=== PATIENT | female | born 1950 | race Caucasian/White ===

== ENCOUNTER 2021-04-04 23:04 | Inpatient (IN) | payer MEDICARE, OTHER ==
[~2021-04-04] VITALS: Ht 162.6 cm; Wt 85.7 kg
--- NOTE | 2021-04-04 23:30 | NUR ---
PT BIB [facility] FOR COUGH AND CONGESTION X2 DAYS. PT A/O X2, NO SOB OR LABORED BREATHING, AFEBRILE. DENIES CP/PRESSURE. CLEAR SPEECH, COMPLETE SENTENCES.
--- NOTE | 2021-04-04 23:31 | NUR ---
DR. SNOW AT BEDSIDE, MSE IN PROGRESS.
[2021-04-04 23:46] LABS: HEMATOCRIT 33.6 % (31.2-41.9); MEAN CORPUSCULAR HEMOGLOBIN 29.5 uug (24.7-32.8); MEAN CORPUSCULAR VOLUME 85.8 fL (75.5-95.3); PLATELET COUNT (AUTO) 211 K/uL (179-408)
[2021-04-04] MEDS ORDERED: SIMV-49 PO (23:53)
[2021-04-04] MEDS ORDERED: BENA40TA67 PO (23:53)
[2021-04-04 23:55] LABS: CARBON DIOXIDE 22 mmol/L (21-32); CHLORIDE 99 mmol/L (98-107); CREATININE 1.9 mg/dL (0.6-1.3); GLUCOSE 145 mg/dL (74-106); UREA NITROGEN, BLOOD 28 mg/dL (7-18)
[2021-04-05 00:07] LABS: ALANINE AMINOTRANSFERASE 32 U/L (14-59); ALKALINE PHOSPHATASE 85 U/L (50-136); ASPARTATE AMINOTRANSFERASE 55 U/L (15-37); BILIRUBIN,DIRECT 0.1 mg/dL (0.0-0.2); BILIRUBIN,TOTAL 0.3 mg/dL (0.2-1.0); TOTAL PROTEIN, SERUM 7.7 g/dL (6.4-8.2)
[2021-04-05] MEDS ORDERED: levoFLOXacin 750 MG/D5W 150 ML PIGGYBACK IV ONE (00:15)
[2021-04-05] MEDS ORDERED: ENOXAPARIN SODIUM 80 MG/0.8 ML DISP.SYRIN SQ ONE ×2 (00:15→01:28)
[2021-04-05] MEDS ORDERED: levoFLOXacin 750MG/D5W 150 ML IV ONE (01:29)
--- NOTE | 2021-04-05 02:04 | NUR ---
XRAY AT BEDSIDE.
--- NOTE | 2021-04-05 02:16 | NUR ---
CALLED [facility], DR. MARTINES PAGED.
[2021-04-05] MEDS ORDERED: ONDANSETRON 4 MG/2 ML VIAL IV PRN (03:00)
[2021-04-05] MEDS ORDERED: levoFLOXacin 500 MG/D5W 500 MG in PREMIXED 1 EACH IV SCH (03:00)
[2021-04-05] MEDS ORDERED: MAGNESIUM HYDROXIDE 30 ML LIQUID UDC PO PRN (03:00)
[2021-04-05] MEDS ORDERED: Z GUARD REMEDY PASTE 57 GM TUBE TOP PRN (03:00)
[2021-04-05] MEDS ORDERED: ONDANSETRON ODT 4 MG TAB.RAPDIS SL ONE (03:15)
[2021-04-05] MEDS ORDERED: HYDROCODONE/APAP 5-325MG TABLET PO ONE (03:15)
[2021-04-05] MEDS ORDERED: ONDANSETRON ODT 4 MG TAB.RAPDIS ONE (03:21)
[2021-04-05] MEDS ORDERED: HYDROCODONE/APAP 5-325MG TABLET ONE (03:22)
--- NOTE | 2021-04-05 03:35 | NUR ---
PROVIDED PT WITH PROPER PERINEAL CARE, NOTED TO BE DRY CLEAN AND COMFORTABLE.
--- NOTE | 2021-04-05 04:58 | NUR ---
Patient is resting comfortably in bed, noted to be awake. Denies any pain/discomfort. Vitals stable.
--- NOTE | 2021-04-05 06:42 | NUR ---
PT AWAKE DENIES ANY PAIN/DISCOMFORT. RESTING COMFORTABLY IN BED.
[2021-04-05] MEDS ORDERED: DEXAMETHASONE SOD PHOSPHATE 4 MG INJ IV ONE (06:45)
[2021-04-05] MEDS ORDERED: DEXAMETHASONE SOD PHOSPHATE 10 MG INJ ONE ×2 (06:46→14:25)
--- NOTE | 2021-04-05 06:55 | NUR ---
GAVE REPORT TO CHRISTAL GARCIA.
--- NOTE | 2021-04-05 07:12 | NUR ---
RECIEVED PT IN BED, ON MONITOR, ON NON-REBREATHER 15 LITRE, O2 SAT 93%. PT WITH NO WORK OF BREATHING.
[2021-04-05] MEDS: PANTOPRAZOLE SODIUM 40 MG TABLET.DR PO SCH (07:38)
[2021-04-05] MEDS ORDERED: PANTOPRAZOLE SODIUM 40 MG TABLET.DR PO ONE (07:46)
--- NOTE | 2021-04-05 08:20 | NUR ---
DR. LOPEZ AT BEDSIDE.
[2021-04-05] MEDS ORDERED: ACETAMINOPHEN 325 MG TABLET ONE ×2 (08:50→16:13)
[2021-04-05] MEDS: ACETAMINOPHEN 325 MG TABLET PO PRN (08:57)
--- NOTE | 2021-04-05 08:59 | NUR ---
ASSISSTED PT WITH BREAK FAST. PT HAD FEW BITES OF PANCAKE AND APPLE JUICE. OXYGEN WOULD DECREASE TO MID EIGHTIES WHEN NON-REBREATHER OFF FOR SPOONING THE FOOD.
[2021-04-05] MEDS ORDERED: CEFTRIAXONE 2 G VIAL IM SCH (09:00)
[2021-04-05] MEDS: DOXYCYCLINE HYCLATE 100 MG TABLET PO SCH ×2 (09:09→20:52)
[2021-04-05] MEDS: BENAZEPRIL HCL 20 MG TABLET PO SCH ×2 (09:09→20:52)
[2021-04-05] MEDS ORDERED: BENAZEPRIL HCL 10 MG TABLET ONE ×2 (09:13→20:50)
[2021-04-05] MEDS ORDERED: DOXYCYCLINE HYCLATE 100 MG TABLET ONE ×2 (09:13→20:50)
[2021-04-05] MEDS: CEFTRIAXONE 2 G in IV DEXTROSE 5% 100 ML IV SCH (09:17)
[2021-04-05] MEDS ORDERED: CEFTRIAXONE 1 G VIAL ONE (09:20)
[2021-04-05 09:26] LABS: ABG BASE EXCESS -5.2 mmol/L; ABG HCO3 18.5 mmol/L; ABG PCO2 30.6 mmHg (35.0-45.0); ABG PH 7.399 (7.350-7.450); ABG PO2 54.4 mmHg (75.0-100.0); ABG SITE RIGHT BRACHIAL; ABG TOTAL HEMOGLOBIN 12.3 G/dL (12.0-16.0); COHb 0.3 % (0.5-1.5); MetHb 0.3 % (0.0-1.5); O2Hb 88.6 % (94.0-97.0)
[2021-04-05] MEDS ORDERED: REMDESIVIR (CHARGED) 200 MG in IV NORMAL SALINE 210 ML IV ONE (09:30)
--- NOTE | 2021-04-05 09:30 | NUR ---
DR. VILLALBA AT BEDSIDE.
--- NOTE | 2021-04-05 09:50 | NUR ---
PT REFUSES TO BE ON THE PRONE POSITION. WILL TRY LATER.
--- NOTE | 2021-04-05 10:17 | NUR ---
RT SET UP HIGH FLOW OXYGEN PER DR. ORLY TORIBIO. THE SETTHING FOLLOWS: 30L/MIN, 100%, 25 C, HIGH FLOW. O2 SAT IMPROVED TO 94%.
[2021-04-05 10:35] LABS: CARBON DIOXIDE 21 mmol/L (21-32); CHLORIDE 98 mmol/L (98-107); CREATININE 1.7 mg/dL (0.6-1.3); GLUCOSE 213 mg/dL (74-106); POTASSIUM 4.3 mmol/L (3.5-5.1); UREA NITROGEN, BLOOD 28 mg/dL (7-18)
--- NOTE | 2021-04-05 12:50 | NUR ---
cofort measure provided. assissted pt with lunch, pt does not have apetite.
[2021-04-05] MEDS: DEXAMETHASONE SOD PHOSPHATE 4 MG INJ IV SCH ×2 (14:20→22:00)
[2021-04-05] MEDS ORDERED: TOCILIZUMAB 600 MG in IV NORMAL SALINE 70 ML IV ONE (16:00)
[2021-04-05] MEDS ORDERED: diphenhydrAMINE 25 MG CAP PO ONE (16:13)
[2021-04-05] MEDS ORDERED: diphenhydrAMINE 50 MG/1 ML VIAL ONE (16:16)
[2021-04-05] MEDS ORDERED: ACETAMINOPHEN 650 MG/20.3 ML LIQUID UDC ONE (16:16)
[2021-04-05] MEDS ORDERED: methylPREDNISolone SOD SUCC 40 MG/ML VIAL ONE (16:19)
[2021-04-05] MEDS ORDERED: methylPREDNISolone SOD SUCC 40 MG/ML VIAL IV ONE (16:30)
[2021-04-05] MEDS ORDERED: ACETAMINOPHEN 650 MG/20.3 ML LIQUID UDC PO ONE (16:30)
[2021-04-05] MEDS ORDERED: diphenhydrAMINE 50 MG/1 ML VIAL IV ONE (16:30)
--- NOTE | 2021-04-05 20:30 | NUR ---
Pt was asking for water, so large cup of ice water was provided with PM medication.
[2021-04-05] MEDS ORDERED: SIMVASTATIN 40 MG TABLET ONE (20:51)
[2021-04-05] MEDS: SIMVASTATIN 40 MG TABLET PO SCH (20:52)
[2021-04-05] MEDS ORDERED: DEXAMETHASONE SOD PHOSPHATE 4 MG INJ ONE (22:06)
--- NOTE | 2021-04-05 23:59 | NUR ---
Pt resting comfortably without any complaints. VSS. 118/73, 67bpm, 93% hiflow, 24rpm.
[2021-04-06] VITALS (30 sets, daily range): BP systolic 62–168; BP diastolic 19–104
--- NOTE | 2021-04-06 04:38 | NUR ---
Second EKG performed per EDMD order. Results normal with NSR without ectopy. Addendum: 04/06/21 at 0439 by [email or web address] charted on wrong pt.
[2021-04-06] MEDS: DEXAMETHASONE SOD PHOSPHATE 4 MG INJ IV SCH ×3 (06:05→21:30)
[2021-04-06 07:58] LABS: MEAN CORPUSCULAR HEMOGLOBIN 29.6 uug (24.7-32.8); MEAN CORPUSCULAR VOLUME 85.5 fL (75.5-95.3); PLATELET COUNT (AUTO) 284 K/uL (179-408)
[2021-04-06] MEDS: PANTOPRAZOLE SODIUM 40 MG TABLET.DR PO SCH (07:59)
--- NOTE | 2021-04-06 08:00 | NUR ---
patient unable to eat meals due to desaturation to 70s if nonrebreather mask removed. patient continues to be on high flow and nonrebreather.
[2021-04-06 08:09] LABS: CARBON DIOXIDE 19 mmol/L (21-32); CHLORIDE 101 mmol/L (98-107); CREATININE 1.9 mg/dL (0.6-1.3); GLUCOSE 175 mg/dL (74-106); MAGNESIUM 2.4 mg/dL (1.8-2.4); PHOSPHOROUS 3.6 mg/dL (2.5-4.9); POTASSIUM 4.2 mmol/L (3.5-5.1); UREA NITROGEN, BLOOD 33 mg/dL (7-18)
[2021-04-06 08:21] LABS: THYROID STIMULATING HORMONE 0.366 mIU/mL (0.358-3.740)
[2021-04-06] MEDS: CEFTRIAXONE 2 G in IV DEXTROSE 5% 100 ML IV SCH (09:00)
[2021-04-06] MEDS ORDERED: DEXAMETHASONE SOD PHOSPHATE 4 MG INJ IV SCH (09:00)
[2021-04-06 09:04] LABS: ABG BASE EXCESS -4.9 mmol/L; ABG HCO3 17.8 mmol/L; ABG PH 7.437 (7.350-7.450); ABG PO2 55.2 mmHg (75.0-100.0); ABG SITE RIGHT RADIAL; ABG TOTAL HEMOGLOBIN 13.5 G/dL (12.0-16.0); COHb 0.3 % (0.5-1.5); MetHb 0.3 % (0.0-1.5); O2Hb 89.7 % (94.0-97.0); VENT MODE HF - Aquinox
[2021-04-06] MEDS: ENOXAPARIN SODIUM 30 MG/0.3 ML DISP.SYRIN SQ SCH (09:06)
[2021-04-06] MEDS ORDERED: REMDESIVIR (CHARGED) 100 MG in IV NORMAL SALINE 100 ML IV SCH (09:30)
[2021-04-06] MEDS: DOXYCYCLINE HYCLATE 100 MG TABLET PO SCH ×2 (11:41→20:42)
--- NOTE | 2021-04-06 15:10 | NUR ---
patient repeatedly taking off non-rebreather patient desaturating to 70's. At this time patient was in 60's desaturating became unresponsive heart rate irma in the 50's. called ER for intubation.
--- NOTE | 2021-04-06 15:30 | NUR ---
patient was on NGT placed. and Dr. Jorge Perez from ER also placed central line and gave initial vent settings and asked for pulmo to ask for changes on settings. cxr obtained for lines placement of intubation and ngt.
--- NOTE | 2021-04-06 15:42 | NUR ---
Pulmonary services, Dr. Vidal called to be notified of pt's intubation orders for vent initial of A/C 24, TV 450, Peep+8, 100% FIO2. with follow up ABG in 1 hour, morning ABG and am. chest X-ray orders received. Also orders for sedation with orders to increase rate to max of 100mcg/kg/min of propofol if needed received.
--- NOTE | 2021-04-06 15:54 | NUR ---
Attending called to notified him of pt's current status and events during intubation. Orders for nutritional consult received as well as orders to start pt. on jevity at 30cc/hr/24 hrss. until rate can be adjusted by japanese interpreter received and implemented.
[2021-04-06] MEDS ORDERED: JEVITY 1.2 1000 ML LIQUID GT PRN (16:00)
--- NOTE | 2021-04-06 16:05 | NUR ---
Pt intubated at 1540 with 7.5 tube aprox 24cm at the lip. Vent setting are AC 24, VT 450, +8, Fio2 100%. Spo2 90%. Tube secured with anchorfast. Ambu bag at bedside. Vent alarm on and audible. Vent plugged into red outlet. Sx pt for small amount of thin clear secretion.
[2021-04-06] MEDS: PROPOFOL 100 ML IV PRN ×3 (16:09→22:46)
[2021-04-06 16:56] LABS: ABG BASE EXCESS -9.2 mmol/L; ABG HCO3 17.3 mmol/L; ABG PCO2 39.4 mmHg (35.0-45.0); ABG PO2 74.9 mmHg (75.0-100.0); ABG SITE RIGHT RADIAL; ABG TOTAL HEMOGLOBIN 13.7 G/dL (12.0-16.0); COHb 0.3 % (0.5-1.5); MetHb 0.4 % (0.0-1.5); O2Hb 92.5 % (94.0-97.0); VENT MODE VENT - A/C; VT, ABG 450 mL
--- NOTE | 2021-04-06 17:00 | NUR ---
dietary called for new recommendations and that is for glucerna with goal rate of 65ml/hr x22hr.
--- NOTE | 2021-04-06 19:10 | NUR ---
Report received. Patient admitted 04/04/2021 for COVID-19, orally intubated this pm and to mechanical ventilator, O2 sats in the 90's with USF1=994%. On continuous Diprivan drip for sedation. Spoke to Phil from [facility] radiology re: NGT placement. As per Dr. Arita radiologist NGT is in the stomach and ETT needs to be retracted 1 cm. RT Hossein singleton.
[2021-04-06] MEDS ORDERED: LISI40TA13 PO (20:09)
--- NOTE | 2021-04-06 20:22 | NUR ---
Pt is on a Rizo ventilator on settings of A/C 28, VT 450, PEEP +8 and FIO2-100%. No resp. distress noted. B/U BVM is at bedside. 7.5 ETT is patent and secure at approx. 23cm RIA. Pt to be monitored throughout the shift and PRN SX.
[2021-04-06] MEDS: SIMVASTATIN 40 MG TABLET PO SCH (20:42)
[2021-04-06] MEDS ORDERED: BENAZEPRIL HCL 20 MG TABLET PO SCH (21:00)
[2021-04-06] MEDS ORDERED: LISINOPRIL 20 MG TABLET PO SCH (21:00)
--- NOTE | 2021-04-06 21:20 | NUR ---
Unable to get a consistent accurate BPs, O2 saturations 60's-80's. Patient with increase work of breathing. Diprivan drip titrate up for adequate sedation. BP dropped to 63/40, Levophed drip started. Monitored closely.
[2021-04-06] MEDS: NOREPINEPHRINE BITARTRATE 8 MG in IV NORMAL SALINE 242 ML IV PRN (21:21)
[2021-04-06] MEDS: ACETAMINOPHEN 325 MG TABLET PO PRN (21:43)
--- NOTE | 2021-04-06 22:00 | NUR ---
Patient's hemodynamically unstable. Diprivan drip at 50 mcg/kg/min but saturations remain 60's. Stat ABGs ordered.
[2021-04-06 22:04] LABS: ABG BASE EXCESS -7.8 mmol/L; ABG HCO3 18.7 mmol/L; ABG PCO2 41.3 mmHg (35.0-45.0); ABG PH 7.273 (7.350-7.450); ABG PO2 34.7 mmHg (75.0-100.0); ABG SITE RIGHT BRACHIAL; ABG TOTAL HEMOGLOBIN 13.7 G/dL (12.0-16.0); COHb 0.4 % (0.5-1.5); MetHb 0.2 % (0.0-1.5); O2Hb 63.6 % (94.0-97.0); VENT MODE VENT - A/C; VT, ABG 450 mL
--- NOTE | 2021-04-06 22:15 | NUR ---
ABGs done by RT; results called to Dr. Anwar. CARDONA informed of patient's condition. Orders received; noted.
--- NOTE | 2021-04-06 22:25 | NUR ---
PEEP increased to 10 by Hossein RT.
[2021-04-06] MEDS: LORAZEPAM 2 MG/1 ML VIAL IV PRN (22:46)
[2021-04-07] VITALS (84 sets, daily range): BP systolic 90–143; BP diastolic 31–81
[2021-04-07] MEDS: PROPOFOL 100 ML IV PRN ×7 (00:36→20:53)
--- NOTE | 2021-04-07 01:00 | NUR ---
Patient stabilizing. O2 saturations improved, adequately sedated with Diprivan drip at 60 mcg/kg/min. Ativan PRN given. NGT feedings started at 20 ml/H.
[2021-04-07] MEDS: IV NORMAL SALINE 250 ML IV PRN (01:11)
[2021-04-07] MEDS ORDERED: levoFLOXacin 750MG/D5W 750 MG in PREMIXED 1 EACH IV SCH (02:00)
--- NOTE | 2021-04-07 04:00 | NUR ---
Patient still gets easily agitated, desaturates and goes into coughing spells during turning and care. Monitored closely. Addendum: 04/07/21 at 0656 by GENEVA HERNANDEZ RN Amended: Links added. Addendum: 04/07/21 at 0700 by GENVEA HERNANDEZ RN Amended: Links added.
[2021-04-07] MEDS: DEXAMETHASONE SOD PHOSPHATE 4 MG INJ IV SCH ×3 (05:22→23:50)
[2021-04-07 05:33] LABS: HEMATOCRIT 34.1 % (31.2-41.9); MEAN CORPUSCULAR HEMOGLOBIN 28.8 uug (24.7-32.8); MEAN CORPUSCULAR VOLUME 86.2 fL (75.5-95.3); PLATELET COUNT (AUTO) 363 K/uL (179-408)
[2021-04-07 05:39] LABS: CARBON DIOXIDE 21 mmol/L (21-32); CHLORIDE 101 mmol/L (98-107); CREATININE 2.2 mg/dL (0.6-1.3); GLUCOSE 220 mg/dL (74-106); MAGNESIUM 2.5 mg/dL (1.8-2.4); PHOSPHOROUS 3.9 mg/dL (2.5-4.9); POTASSIUM 4.6 mmol/L (3.5-5.1); UREA NITROGEN, BLOOD 50 mg/dL (7-18)
[2021-04-07] MEDS: PANTOPRAZOLE SODIUM 40 MG TABLET.DR PO SCH (06:03)
--- NOTE | 2021-04-07 06:59 | NUR ---
Adequately sedated with Diprivan drip at 60 mcg/kg/min. BPs stable with Levophed drip at 0.04 mg/kg/min. turn sewer: SB to SR rate 57-60's. O2 sats above 95% on current vent settings: AC=28, UF=334 ml, PEEP=12 cm and YAY4=337%. Tolerating NGT feedings: Glucerna rate now at 40 ml/H; no residuals. Urine output= 400 ml x 12Hours. GIL 19 isolation maintained. Addendum: 04/07/21 at 0700 by GENEVA HERNANDEZ RN Amended: Links added.
--- NOTE | 2021-04-07 07:30 | NUR ---
received change of shift report from shiftman RN. PT intubated and sedated on propofol at 60 mcg, per shiftman pt needing ativan to keep sedated. pt on levophed at 0.04mcg, NSR, pt tolerating tube feeding goal of 65 rate of 50ml/hr. pt voiding via lopez, 100 out this am. Right femoral triple lumen, intact and patent. pt on COVID-19, will continue to monitor.
--- NOTE | 2021-04-07 07:43 | NUR ---
PT RECEIVED ON CONT VENT WITH GIVEN SETTINGS OF AC RR 28, VT 450, PEEP +12, 100% FIO2. PT IS INTUBATED WITH 7.5 ETT @ APPROX 24 CM AT THE LIP. ALARMS ON AND AUDIBLE. VENTILATOR PLUGGED IN RED OUTLET. AMBUBAG AT BED SIDE. ABG TO BE DONE. WILL CONTINUE TO MONITOR THROUGH OUT SHIFT.
[2021-04-07] MEDS ORDERED: CARB1TAB40 PO (08:25)
[2021-04-07] MEDS ORDERED: ATOR40TA PO (08:25)
[2021-04-07] MEDS ORDERED: CARB1TAB21 PO (08:25)
[2021-04-07] MEDS ORDERED: MEMA10TA PO (08:25)
[2021-04-07] MEDS ORDERED: DONE10TA44 PO (08:25)
[2021-04-07] MEDS ORDERED: PANT40TA49 PO (08:25)
[2021-04-07] MEDS ORDERED: FAMO20TA8 PO (08:25)
[2021-04-07 08:26] LABS: ABG BASE EXCESS -6.2 mmol/L; ABG HCO3 18.1 mmol/L; ABG PCO2 32.3 mmHg (35.0-45.0); ABG PH 7.366 (7.350-7.450); ABG SITE LEFT RADIAL; ABG TOTAL HEMOGLOBIN 12.6 G/dL (12.0-16.0); COHb 0.3 % (0.5-1.5); MetHb 0.2 % (0.0-1.5); O2Hb 97.8 % (94.0-97.0); VENT MODE VENT - A/C; VT, ABG 450 mL
[2021-04-07] MEDS: DOXYCYCLINE HYCLATE 100 MG TABLET PO SCH ×2 (08:39→20:21)
[2021-04-07] MEDS: ENOXAPARIN SODIUM 30 MG/0.3 ML DISP.SYRIN SQ SCH (08:41)
[2021-04-07] MEDS: CEFTRIAXONE 2 G in IV DEXTROSE 5% 100 ML IV SCH (08:41)
[2021-04-07] MEDS: LORAZEPAM 2 MG/1 ML VIAL IV PRN ×3 (11:11→17:40)
--- NOTE | 2021-04-07 13:22 | NUR ---
pt seen by Dr. Liu, orders to bring down fio2 to 80%, goal to keep O2 saturation at 94% or higher. water flush q4hr 200cc.
[2021-04-07] MEDS ORDERED: ROCURONIUM BROMIDE 50 MG/5 ML VIAL IV ONE (13:48)
[2021-04-07] MEDS ORDERED: ETOMIDATE 20 MG/10 ML VIAL IV ONE (13:48)
--- NOTE | 2021-04-07 14:19 | NUR ---
WOUND CARE CONSULT: RECEIVED WOUND CONSULT FOR RED/PINK AREA TO SACRUM/BUTTOCKS. REVIEWED CHART, NURSING DOCUMENTATION AND PHOTO WHICH INDICATES BLANCHABLE REDNESS TO SACRUM. DISCUSSED SKIN PROTECTION WITH NURSING STAFF. LOW AIRLOSS MATTRESS IS ON ORDER (FIRST STEP). MD IN AGREEMENT WITH PLAN OF CARE.
[2021-04-07] MEDS: NOREPINEPHRINE BITARTRATE 8 MG in IV NORMAL SALINE 242 ML IV PRN (15:09)
[2021-04-07] MEDS ORDERED: REMDESIVIR (CHARGED) 200 MG in IV NORMAL SALINE 210 ML IV ONE ×2 (16:30→20:00)
--- NOTE | 2021-04-07 17:20 | NUR ---
pt FiO2 setting changed to 75%, pt saturating at 97%, no signs of distress, will continue to monitor.
[2021-04-07] MEDS ORDERED: TOCILIZUMAB 600 MG in IV NORMAL SALINE 70 ML IV ONE (18:00)
[2021-04-07] MEDS ORDERED: methylPREDNISolone SOD SUCC 40 MG/ML VIAL IV ONE (18:00)
[2021-04-07] MEDS ORDERED: diphenhydrAMINE 50 MG/1 ML VIAL IV ONE (18:00)
[2021-04-07] MEDS ORDERED: ACETAMINOPHEN 650 MG/20.3 ML LIQUID UDC NG ONE (18:00)
--- NOTE | 2021-04-07 19:05 | NUR ---
received patient sedated , vent settings ac 28 tv 450 , p 12 , fio2 75 fio2 % levophed 0.04 mcg , propofol 60 mcg , ngt of glucerna at 50 , placement chewcked and no residual noted , no fever , iv femoral triple lumen and lopez intact
--- NOTE | 2021-04-07 19:30 | NUR ---
Patient received on a Viasys Rizo ventilator on settings of A/C 28, VT 450, PEEP +12 and FIO2-75%. No resp. distress noted. Backup resusc. bag is at bedside. 7.5 ETT is patent and secure at approx. 23cm at the lip. Patient to be monitored throughout the shift and PRN SX.
[2021-04-07] MEDS: SIMVASTATIN 40 MG TABLET PO SCH (20:21)
--- NOTE | 2021-04-07 21:35 | NUR ---
received call from getachew laborer tree tapping , patient is positive for PCR , covid test
[2021-04-08] VITALS (92 sets, daily range): BP systolic 63–152; BP diastolic 32–78
[2021-04-08] MEDS: PROPOFOL 100 ML IV PRN ×9 (00:09→23:55)
[2021-04-08] MEDS: MORPHINE SULFATE 2 MG/1 ML DISP.SYRIN IV PRN (03:38)
[2021-04-08 05:33] LABS: HEMATOCRIT 33.7 % (31.2-41.9); MEAN CORPUSCULAR HEMOGLOBIN 29.4 uug (24.7-32.8); MEAN CORPUSCULAR VOLUME 86.6 fL (75.5-95.3); PLATELET COUNT (AUTO) 371 K/uL (179-408)
[2021-04-08 05:44] LABS: ALANINE AMINOTRANSFERASE 39 U/L (14-59); ALKALINE PHOSPHATASE 96 U/L (50-136); ASPARTATE AMINOTRANSFERASE 58 U/L (15-37); BILIRUBIN,DIRECT 0.1 mg/dL (0.0-0.2); BILIRUBIN,TOTAL 0.3 mg/dL (0.2-1.0); CARBON DIOXIDE 19 mmol/L (21-32); CHLORIDE 101 mmol/L (98-107); CREATININE 2.3 mg/dL (0.6-1.3); MAGNESIUM 2.8 mg/dL (1.8-2.4); PHOSPHOROUS 4.3 mg/dL (2.5-4.9); POTASSIUM 4.8 mmol/L (3.5-5.1); TOTAL PROTEIN, SERUM 6.6 g/dL (6.4-8.2); UREA NITROGEN, BLOOD 59 mg/dL (7-18)
[2021-04-08 05:52] LABS: GLUCOSE 324 mg/dL (74-106)
[2021-04-08] MEDS: PANTOPRAZOLE SODIUM 40 MG TABLET.DR PO SCH (05:55)
[2021-04-08] MEDS: DEXAMETHASONE SOD PHOSPHATE 4 MG INJ IV SCH ×3 (05:55→22:16)
[2021-04-08 06:19] LABS: ALANINE AMINOTRANSFERASE 36 U/L (14-59); ALKALINE PHOSPHATASE 98 U/L (50-136); ASPARTATE AMINOTRANSFERASE 59 U/L (15-37); BILIRUBIN,TOTAL 0.3 mg/dL (0.2-1.0); CARBON DIOXIDE 19 mmol/L (21-32); CHLORIDE 102 mmol/L (98-107); CREATININE 2.3 mg/dL (0.6-1.3); FERRITIN 1625 ng/mL (8-252); LACTATE DEHYDROGENASE 728 U/L (81-234); POTASSIUM 4.8 mmol/L (3.5-5.1); TOTAL PROTEIN, SERUM 6.6 g/dL (6.4-8.2); UREA NITROGEN, BLOOD 59 mg/dL (7-18)
[2021-04-08 06:21] LABS: GLUCOSE 325 mg/dL (74-106)
[2021-04-08] MEDS: CEFTRIAXONE 2 G in IV DEXTROSE 5% 100 ML IV SCH (07:58)
[2021-04-08] MEDS: DOXYCYCLINE HYCLATE 100 MG TABLET PO SCH ×2 (07:58→20:37)
[2021-04-08] MEDS: ENOXAPARIN SODIUM 30 MG/0.3 ML DISP.SYRIN SQ SCH (07:59)
[2021-04-08 08:06] LABS: HEPATITIS B SURFACE AG Negative (Negative)
[2021-04-08 08:24] LABS: ABG BASE EXCESS -6.9 mmol/L; ABG HCO3 18.2 mmol/L; ABG PH 7.334 (7.350-7.450); ABG SITE RIGHT RADIAL; ABG TOTAL HEMOGLOBIN 11.5 G/dL (12.0-16.0); COHb 0.3 % (0.5-1.5); MetHb 0.3 % (0.0-1.5); O2Hb 95.5 % (94.0-97.0); VENT MODE VENT - A/C; VT, ABG 450 mL
[2021-04-08] MEDS: NOREPINEPHRINE BITARTRATE 8 MG in IV NORMAL SALINE 242 ML IV PRN (08:36)
[2021-04-08] MEDS ORDERED: DEXTROSE 50% 50 ML DISP.SYRIN IV PRN (10:30)
[2021-04-08] MEDS: BLOOD SUGAR DIAGNOSTIC 1 EACH STRIP VI SCH ×3 (12:12→23:27)
[2021-04-08] MEDS: INSULIN REGULAR, HUMAN 300 UNIT/3 ML VIAL SQ PRN ×3 (12:16→23:28)
--- NOTE | 2021-04-08 12:20 | NUR ---
over 300ml residual will hold feeding at this time. flush given.
[2021-04-08 12:22] LABS: *BILIRUBIN,URIN NEGATIVE (NEGATIVE); *CLARITY,URINE CLEAR (CLEAR); *COLOR,URINE YELLOW (YELLOW); *KETONES,URINE NEGATIVE (NEGATIVE); *UROBILINOGEN,URINE 0.2 E.U./dl (NORMAL); LEUKOCYTE ESTERASE ,URINE NEGATIVE (NEGATIVE); NITRITE, URINE NEGATIVE (NEGATIVE); PH,URINE 5.5 (5.0-8.0); UGLUCOSE NEGATIVE (NEGATIVE)
[2021-04-08 12:28] LABS: *CREATININE,URINE 64.5 mg/dL (30-125)
[2021-04-08 12:33] LABS: *BLOOD, URINE TRACE (NEGATIVE)
[2021-04-08] MEDS ORDERED: FENTANYL CITRATE/PF 1,000 MCG in IV NORMAL SALINE 80 ML IV PRN (13:45)
[2021-04-08 17:24] LABS: BACTERIA,URINE FEW /HPF (NONE SEEN); RBC,URINE 0-3 /HPF (0-3); SQUAMOUS EPITHELIAL CELL,UR FEW /HPF (NONE SEEN); WBC,URINE 0-3 /HPF (0-3)
--- NOTE | 2021-04-08 19:30 | NUR ---
Report received. Patient is on COVID 19 isolation, orally intubated and to mechanical ventilator with settings: AC=28, FIO2=75%. GZ=881 ml and PEEP=12 cm. O2 saturation 100%. Continuously sedated with Diprivan drip at 95 mcg/kg/min. Levophed drip for BP support at 0.03 mcg/kg/min via R femoral TLC. monitoring specialist: SR to SB rate 56-61. Assessment completed. Addendum: 04/08/21 at 2352 by GENEVA HERNANDEZ RN Amended: Links added. Addendum: 04/09/21 at 0002 by GENEVA HERNANDEZ RN Amended: Links added.
--- NOTE | 2021-04-08 20:00 | NUR ---
NGT with large amounts of residuals; feedings put on hold.
[2021-04-08] MEDS: REMDESIVIR (CHARGED) 100 MG in IV NORMAL SALINE 100 ML IV SCH (20:21)
--- NOTE | 2021-04-08 20:30 | NUR ---
Levophed drip titrated down; BPs monitored closely. Addendum: 04/09/21 at 0002 by GENEVA HERNANDEZ RN Amended: Links added.
[2021-04-08] MEDS: SIMVASTATIN 40 MG TABLET PO SCH (20:37)
--- NOTE | 2021-04-08 21:33 | NUR ---
PATIENT ON CONT READ VENT WITH 7.5 ET/TUBE IN PLACE AND SECURED, WITH CURRENT VENT SETTINGS, A/C 28, 450ML, FIO2 @ 75%, PEEP 12, PT SEDATED , MOSTLY CONTROLLED VENTILATION, VERY MINIMAL SECRETIONS,SAT 100%, NO VENT CHANGES MADE AT HIS TIME, ALL VENT ALARMS GOOD, AMBU BAG AT BEDSIDE, VENT PLUGGED INTO RED WALL OUT, WILL MONITOR CLOSELY .Whitley SMALL RCP Addendum: 04/08/21 at 2137 by YESENIA SMALL RT Amended: Links added.
[2021-04-08] MEDS: MIDAZOLAM HCL 50 MG in IV NORMAL SALINE 40 ML IV PRN (22:46)
--- NOTE | 2021-04-08 22:46 | NUR ---
RR in the 30's. O2 saturation remains 100%. Versed drip started at 1 mg/H. Levophed drip at 0.03 mg/kg/min to keep SBP above 90. Addendum: 04/08/21 at 2255 by GENEVA HERNANDEZ RN Amended: Links added. Addendum: 04/08/21 at 5 by GENEVA HERNANDEZ RN Amended: Links added. Addendum: 04/08/21 at 2255 by GENEVA HERNANDEZ RN Amended: Links added. Addendum: 04/08/21 at 2255 by GENEVA HERNANDEZ RN Amended: Links added. Addendum: 04/08/21 at 2256 by GENEVA HERNANDEZ RN Amended: Links added. Addendum: 04/08/21 at 2255 by GENEVA HERNANDEZ RN Amended: Links added. Addendum: 04/08/21 at 2255 by GENEVA HERNANDEZ RN Amended: Links added. Addendum: 04/08/21 at 2255 by GENEVA HERNANDEZ RN Amended: Links added. Addendum: 04/08/21 at 2256 by GENEVA HERNANDEZ RN Amended: Links added. Addendum: 04/08/21 at 2256 by GENEVA HERNANDEZ RN Amended: Links added. Addendum: 04/08/21 at 2256 by GENEVA HERNANDEZ RN Amended: Links added. Addendum: 04/08/21 at 2257 by GENEVA HERNANDEZ RN Amended: Links added. Addendum: 04/08/21 at 9731 by GENEVA HERNANDEZ RN Amended: Links added.
[2021-04-09] VITALS (90 sets, daily range): BP systolic 83–161; BP diastolic 44–101
--- NOTE | 2021-04-09 | NUR ---
Continues to have large amounts of gastric residuals. Feedings remain on hold. Addendum: 04/09/21 at 0559 by GENEVA HERNANDEZ RN Amended: Links added.
[2021-04-09] MEDS: PROPOFOL 100 ML IV PRN ×11 (01:33→23:28)
[2021-04-09] MEDS: IV NORMAL SALINE 250 ML IV PRN (02:55)
[2021-04-09] MEDS: BLOOD SUGAR DIAGNOSTIC 1 EACH STRIP VI SCH ×4 (05:28→23:46)
[2021-04-09] MEDS: INSULIN REGULAR, HUMAN 300 UNIT/3 ML VIAL SQ PRN ×4 (05:29→23:47)
[2021-04-09] MEDS: DEXAMETHASONE SOD PHOSPHATE 4 MG INJ IV SCH ×3 (05:31→21:23)
[2021-04-09 05:58] LABS: HEMATOCRIT 33.6 % (31.2-41.9); MEAN CORPUSCULAR HEMOGLOBIN 29.4 uug (24.7-32.8); MEAN CORPUSCULAR VOLUME 87.7 fL (75.5-95.3); PLATELET COUNT (AUTO) 380 K/uL (179-408)
[2021-04-09] MEDS: PANTOPRAZOLE SODIUM 40 MG TABLET.DR PO SCH (06:10)
[2021-04-09 06:12] LABS: ALANINE AMINOTRANSFERASE 31 U/L (14-59); ALKALINE PHOSPHATASE 85 U/L (50-136); ASPARTATE AMINOTRANSFERASE 36 U/L (15-37); BILIRUBIN,DIRECT 0.1 mg/dL (0.0-0.2); BILIRUBIN,TOTAL 0.3 mg/dL (0.2-1.0); CARBON DIOXIDE 21 mmol/L (21-32); CHLORIDE 99 mmol/L (98-107); CREATININE 2.4 mg/dL (0.6-1.3); GLUCOSE 272 mg/dL (74-106); MAGNESIUM 2.9 mg/dL (1.8-2.4); PHOSPHOROUS 6.9 mg/dL (2.5-4.9); POTASSIUM 5.6 mmol/L (3.5-5.1); TOTAL PROTEIN, SERUM 6.8 g/dL (6.4-8.2); UREA NITROGEN, BLOOD 75 mg/dL (7-18)
--- NOTE | 2021-04-09 06:47 | NUR ---
Adequately sedated with Diprivan drip @ 95 mcg/kg/min and Versed drip at 2 mg/H. Current vent settings: AC=28, YK=565 m, PEEP=12cm and FIO2=60%. O2 sats 99-100%. SBPs maintained above 90 with Levophed drip at 0.05 mcg/kg/min. gambling monitor mostly SB rate in the 50's. With large gastric residuals throughout the shift; NGT feedings held. Urine output 400 ml x 12H. Addendum: 04/09/21 at 0649 by GENEVA HERNANDEZ RN Amended: Links added.
[2021-04-09] MEDS: CEFTRIAXONE 2 G in IV DEXTROSE 5% 100 ML IV SCH (08:22)
[2021-04-09] MEDS: ENOXAPARIN SODIUM 30 MG/0.3 ML DISP.SYRIN SQ SCH (08:27)
[2021-04-09] MEDS: DOXYCYCLINE HYCLATE 100 MG TABLET PO SCH ×2 (08:28→20:36)
[2021-04-09] MEDS: NOREPINEPHRINE BITARTRATE 8 MG in IV NORMAL SALINE 242 ML IV PRN ×2 (08:43→19:00)
[2021-04-09] MEDS ORDERED: SODIUM POLYSTYRENE SULFONATE 15 G/60 ML LIQUID UDC PO ONE (09:30)
[2021-04-09] MEDS: HYDROCORTISONE SOD SUCCINATE 100 MG/2 ML VIAL IV SCH ×3 (09:50→23:14)
[2021-04-09] MEDS: SODIUM BICARBONATE 8.4% 50 MEQ in IV NS 1000 ML 1,000 ML IV PRN (17:10)
--- NOTE | 2021-04-09 19:30 | NUR ---
rounds made patient in bed orally intubated and sedated on propofol and versed .patient withdraws to deep pain . pupils right and left sluggish reactive . vent setting ETT size 7.5,23 AC 28/450/40% PEEP 10. RR 28 SATURATION 95 TO 98%. when suction very minimal secretion via the mouth and via ett . CONTINUE TO MONITOR SATURATION . right FEMORAL TLC -PROPOFOL DRIP AT 95 MCG/KG/MIN . -VERSED AT 2 MG/HR . -LEVOPHED DRIP AT 0.05 MCG/KG/MIN TO KEEP SBP >90 . -N/S WITH SODIUM BICARBONATE AT 72 ML/HR . TUBE FEEDING -GLUCERNA at 10 ml/hr via the NGT . TREJO CATHETER -WITH YELLOSISH URINE ,I AND OS .
[2021-04-09] MEDS: REMDESIVIR (CHARGED) 100 MG in IV NORMAL SALINE 100 ML IV SCH (20:32)
[2021-04-09] MEDS: SIMVASTATIN 40 MG TABLET PO SCH (20:35)
--- NOTE | 2021-04-09 21:00 | NUR ---
respiratory therapist at b/s doing his vent checked . turned and reposition patient offloaded back with pillows .hob up .tube feeding in progress on Glucerna at 10 ml /hr checked residual zero continue with TF,due medication given crushed medication and given via the NGT .
--- NOTE | 2021-04-09 22:00 | NUR ---
tolerating tube feeding ,increase Glucerna 1.2 to 30 ml/hr .fused ngt .
[2021-04-10] VITALS (81 sets, daily range): BP systolic 76–166; BP diastolic 35–86
[2021-04-10] MEDS: MIDAZOLAM HCL 50 MG in IV NORMAL SALINE 40 ML IV PRN ×3 (00:22→18:47)
--- NOTE | 2021-04-10 01:13 | NUR ---
PATIENT ON CONT READ VENT WITH 7.5 WITH ET/TUBE IN PLACE AND SECURED WITH ANCHOR FAST , MOVE Q2 HOURS, SUCTION, PINKISH TINGE AT TIMES , CLEAING UP, PT ON CURRENT VENT SETTINGS, A/C 28, 450ML, PEEP 10, FIO2 @ 40%, DE SAT AT TIMES, BUT DOING OK, AFTER A FEW MINUTES, CHANGE HME, ALL VENT ALARMS GOOD, ABG IN AM . Whitley KERRP Addendum: 04/10/21 at 0115 by YESENIA SMALL RT Amended: Links added.
[2021-04-10] MEDS: PROPOFOL 100 ML IV PRN ×5 (01:48→20:26)
--- NOTE | 2021-04-10 03:45 | NUR ---
PATIENT HAD A BM LARGE IN AMT . CHANGE SOILED LINENS AND GOWN . APPLIED Z GUARD TO SACRAL AND MEPILEX .
--- NOTE | 2021-04-10 04:30 | NUR ---
am lab collected and given to coat joiner lockstitch,flushed right femoral tlc. ALL PORTS PATENT .
[2021-04-10 05:22] LABS: HEMATOCRIT 32.2 % (31.2-41.9); MEAN CORPUSCULAR HEMOGLOBIN 29.8 uug (24.7-32.8); MEAN CORPUSCULAR VOLUME 85.6 fL (75.5-95.3); PLATELET COUNT (AUTO) 358 K/uL (179-408)
[2021-04-10] MEDS: BLOOD SUGAR DIAGNOSTIC 1 EACH STRIP VI SCH ×4 (05:31→23:21)
[2021-04-10] MEDS: INSULIN REGULAR, HUMAN 300 UNIT/3 ML VIAL SQ PRN ×4 (05:32→23:25)
[2021-04-10] MEDS: DEXAMETHASONE SOD PHOSPHATE 4 MG INJ IV SCH ×3 (05:34→22:44)
[2021-04-10] MEDS: HYDROCORTISONE SOD SUCCINATE 100 MG/2 ML VIAL IV SCH ×3 (05:34→22:44)
[2021-04-10 05:37] LABS: ALANINE AMINOTRANSFERASE 32 U/L (14-59); ALKALINE PHOSPHATASE 74 U/L (50-136); ASPARTATE AMINOTRANSFERASE 30 U/L (15-37); BILIRUBIN,DIRECT 0.1 mg/dL (0.0-0.2); BILIRUBIN,TOTAL 0.3 mg/dL (0.2-1.0); CARBON DIOXIDE 19 mmol/L (21-32); CHLORIDE 105 mmol/L (98-107); GLUCOSE 271 mg/dL (74-106); MAGNESIUM 2.8 mg/dL (1.8-2.4); POTASSIUM 3.8 mmol/L (3.5-5.1); TOTAL PROTEIN, SERUM 5.9 g/dL (6.4-8.2); TRIGLYCERIDES 667 MG/DL (30-150); UREA NITROGEN, BLOOD 74 mg/dL (7-18)
--- NOTE | 2021-04-10 06:00 | NUR ---
patient desaturated to the 80 to 88 % called respiratory therapist . Peyman came and titrate the fio2. saturation to 90 to 91% on fio2 80%.
[2021-04-10] MEDS: PANTOPRAZOLE SODIUM 40 MG TABLET.DR PO SCH (06:04)
[2021-04-10] MEDS: SODIUM BICARBONATE 8.4% 50 MEQ in IV NS 1000 ML 1,000 ML IV PRN (07:47)
[2021-04-10 08:16] LABS: ABG BASE EXCESS -3.3 mmol/L; ABG HCO3 19.9 mmol/L; ABG PCO2 29.9 mmHg (35.0-45.0); ABG PO2 59.4 mmHg (75.0-100.0); ABG SITE LEFT RADIAL; ABG TOTAL HEMOGLOBIN 11.5 G/dL (12.0-16.0); COHb 0.3 % (0.5-1.5); MetHb 0.1 % (0.0-1.5); O2Hb 91.3 % (94.0-97.0); VENT MODE VENT - A/C; VT, ABG 450 mL
[2021-04-10 08:17] LABS: ABG BASE EXCESS -10.6 mmol/L; ABG HCO3 16.9 mmol/L; ABG PCO2 43.2 mmHg (35.0-45.0); ABG PH 7.209 (7.350-7.450); ABG PO2 129.5 mmHg (75.0-100.0); ABG SITE LEFT BRACHIAL; ABG TOTAL HEMOGLOBIN 12.2 G/dL (12.0-16.0); COHb 0.3 % (0.5-1.5); MetHb 0.3 % (0.0-1.5); O2Hb 97.7 % (94.0-97.0); VENT MODE VENT - A/C; VT, ABG 450 mL
[2021-04-10] MEDS: NOREPINEPHRINE BITARTRATE 8 MG in IV NORMAL SALINE 242 ML IV PRN (08:17)
[2021-04-10] MEDS: ENOXAPARIN SODIUM 30 MG/0.3 ML DISP.SYRIN SQ SCH (08:59)
--- NOTE | 2021-04-10 09:52 | NUR ---
FIO2 up to 100% due desaturation down to the 70's
[2021-04-10] MEDS ORDERED: FENTANYL CITRATE/PF 1,000 MCG in IV NORMAL SALINE 80 ML IV PRN (16:00)
[2021-04-10] MEDS: FENTANYL CITRATE/PF 1,000 MCG in IV NORMAL SALINE 80 ML IV PRN ×2 (16:16→22:51)
[2021-04-10] MEDS: VECURONIUM BROMIDE 50 MG in IV NORMAL SALINE 50 ML IV PRN ×2 (17:07→19:11)
[2021-04-10] MEDS ORDERED: CEFTRIAXONE 2 G in IV DEXTROSE 5% 100 ML IV SCH (18:30)
--- NOTE | 2021-04-10 19:30 | NUR ---
Received patient on COVID 19 isolation, orally intubated and to mechanical ventilator settings: AC=24, FIO2=80%, KU=747 ml and PEEP=10 cm. O2 sats 99-100%. With the following drips for sedation via R femoral TLC. Norcuron at 0.8 mcg/kg/min Diprivan at 35 mcg/kg/min Versed at 10mg/H Fentanyl at 160 mcg/H. Also on Levophed drip for BP support. monitor worker: SR-SB rate 50's-60's. Turned and repositioned with RT's help. Skin care provided. Mepilex foam dressing to sacral area for protection. No gag or cough reflexes upon suctioning. Very scant clear to carrillo colored secretions from ETT and mouth. Tolerating NGT feedings well; rate increased to 30 ml/H with goal of 55ml/H x 22H. Assessment done; see flow sheet for completed data. Addendum: 04/11/21 at 0009 by GENEVA HERNANDEZ RN Amended: Links added. Addendum: 04/11/21 at 0010 by GENEVA HERNANDEZ RN Amended: Links added.
--- NOTE | 2021-04-10 20:15 | NUR ---
A peripheral IV started to LWrist for IVPBs. NS DEED velasco.
[2021-04-10] MEDS: REMDESIVIR (CHARGED) 100 MG in IV NORMAL SALINE 100 ML IV SCH (20:26)
[2021-04-10] MEDS: SIMVASTATIN 40 MG TABLET PO SCH (20:40)
[2021-04-10] MEDS: DOXYCYCLINE HYCLATE IV 100 MG in IV DEXTROSE 5% 100 ML IV SCH (20:40)
--- NOTE | 2021-04-10 20:40 | NUR ---
BPs labile; Levophed drip titrated up to keep SBP above 90. Diprivan drip titrated down. R ulnar Train of Four: 00 at level 9. Electrodes transferred to R facial area. Train of four 05/24 at level 8. Will monitor closely. Addendum: 04/11/21 at 0023 by GENEVA HERNANDEZ RN Amended: Links added. Addendum: 04/11/21 at 0029 by GENEVA HERNANDEZ RN Amended: Links added.
--- NOTE | 2021-04-10 21:00 | NUR ---
Continue to titrate Levophed drip; BPs 70-80 systole. Monitored closely. Addendum: 04/11/21 at 0029 by GENEVA HERNANDEZ RN Amended: Links added.
[2021-04-10] MEDS: IV NORMAL SALINE 250 ML IV PRN (23:33)
--- NOTE | 2021-04-10 23:36 | NUR ---
PATIENT ON CONT READ VENT WITH 7.5 ET/TUBE IN PLACE AND SECURED WITH ANCHOR FAST, MOVE Q2 HOURS, PT WITH NO GAG REFLEX AT THIS TIME, PT SEDATED , SUCTION MOUTH WITH YANKAUER, MINIMAL SECRETIONS, VERY SLIGHT PINKISH TINGE AT TIMES VIA ET/TUBE, PT ON CURRENT VENT SETTINGS, A/C 24, 450ML, FIO2 @ 80%, PEEP 10, WITH CONTROLLED VENTILATION, CHECK CUFF, CHANGE HME , ALL VENT ALARMS GOOD, AMBU BAG AT BEDSIDE, VENT PLUGGED INTO RED WALL OUT.Whitley SMALL RCP Addendum: 04/10/21 at 2339 by YESENIA FORD Amended: Links added.
[2021-04-11] VITALS (50 sets, daily range): BP systolic 89–163; BP diastolic 53–77
[2021-04-11] MEDS: MIDAZOLAM HCL 50 MG in IV NORMAL SALINE 40 ML IV PRN ×3 (00:48→16:00)
--- NOTE | 2021-04-11 02:00 | NUR ---
Bradycardic HR 47-49. TOF 0/4 at level 9. Norcuron drip titrated down. Will continue to monitor closely. Incontinent of liquid green stools. Flexi seal inserted. Bath given. Turned and repositioned. Jaxon FORD at bedside.
[2021-04-11] MEDS: SODIUM BICARBONATE 8.4% 50 MEQ in IV NS 1000 ML 1,000 ML IV PRN ×2 (03:40→09:12)
[2021-04-11 05:06] LABS: MEAN CORPUSCULAR HEMOGLOBIN 28.9 uug (24.7-32.8); MEAN CORPUSCULAR VOLUME 86.3 fL (75.5-95.3); PLATELET COUNT (AUTO) 261 K/uL (179-408)
[2021-04-11 05:16] LABS: ALANINE AMINOTRANSFERASE 34 U/L (14-59); ALKALINE PHOSPHATASE 67 U/L (50-136); ASPARTATE AMINOTRANSFERASE 29 U/L (15-37); BILIRUBIN,DIRECT 0.1 mg/dL (0.0-0.2); BILIRUBIN,TOTAL 0.2 mg/dL (0.2-1.0); CARBON DIOXIDE 24 mmol/L (21-32); CHLORIDE 109 mmol/L (98-107); CREATININE 1.9 mg/dL (0.6-1.3); GLUCOSE 270 mg/dL (74-106); MAGNESIUM 2.9 mg/dL (1.8-2.4); PHOSPHOROUS 5.6 mg/dL (2.5-4.9); POTASSIUM 3.5 mmol/L (3.5-5.1); TOTAL PROTEIN, SERUM 5.2 g/dL (6.4-8.2)
[2021-04-11] MEDS: HYDROCORTISONE SOD SUCCINATE 100 MG/2 ML VIAL IV SCH ×3 (05:17→21:39)
[2021-04-11] MEDS: DEXAMETHASONE SOD PHOSPHATE 4 MG INJ IV SCH ×3 (05:18→21:39)
[2021-04-11 05:20] LABS: UREA NITROGEN, BLOOD 80 mg/dL (7-18)
[2021-04-11] MEDS: FENTANYL CITRATE/PF 1,000 MCG in IV NORMAL SALINE 80 ML IV PRN ×4 (05:23→22:36)
[2021-04-11] MEDS: INSULIN REGULAR, HUMAN 300 UNIT/3 ML VIAL SQ PRN ×4 (05:56→23:15)
[2021-04-11] MEDS: BLOOD SUGAR DIAGNOSTIC 1 EACH STRIP VI SCH ×4 (05:56→23:15)
[2021-04-11] MEDS: PANTOPRAZOLE SODIUM 40 MG TABLET.DR PO SCH (06:01)
--- NOTE | 2021-04-11 06:56 | NUR ---
BPs very labile all night. hospital monitor: SB rate in the 40's. Levophed drip at 0.01 mcg/kg/min. O2 sats 98-100% on FIO2=80%. Propofol drip off since 99. Currently on the following drips for sedation: Fentanyl at 160 mcg/H Versed at 7 mg/H. Norcuron at 0.4 mcg/kg/min. TOF L facial nerves: 0/4 at level 7-9, 4/4 at level 6. TOF R ulnar nerves: 0/4 at level 9. Condition guarded. Addendum: 04/11/21 at 0659 by GENEVA HERNANDEZ RN Amended: Links added.
--- NOTE | 2021-04-11 07:13 | NUR ---
Received report from sack maker nurse. Patient in bed sedated on Versed, fentanyl, and Norcuron. TOF 4/4 on Level 8. Patient on ventilator with ETT 7.5 23cm at the lipline, Ac 24 TV 450 Peep 10 80% fio2. Patient saturation of 100% with quick desaturation upon movement and long recovery period. Patient has NGT with residuals of 150cc. Rocha catheter intact and draining appropriately. Flexiseal in place with minimal Diarrhea. Air mattress inflated, patient repositioned, will continue to monitor. Head of bed elevated 45 degrees.
[2021-04-11] MEDS: ENOXAPARIN SODIUM 30 MG/0.3 ML DISP.SYRIN SQ SCH (08:12)
[2021-04-11] MEDS: DOXYCYCLINE HYCLATE IV 100 MG in IV DEXTROSE 5% 100 ML IV SCH (08:13)
[2021-04-11] MEDS: VECURONIUM BROMIDE 50 MG in IV NORMAL SALINE 50 ML IV PRN ×2 (09:11→20:33)
[2021-04-11] MEDS: ALBUMIN HUMAN 25% 100 ML IV SCH ×3 (11:48→23:19)
[2021-04-11] MEDS: GLUCERNA 1.2 1000ML LIQUID GT PRN (12:00)
--- NOTE | 2021-04-11 13:15 | NUR ---
Patient had an episode for 20 Beats Vtach nonsustained, and returned back to bradycardia.
--- NOTE | 2021-04-11 16:06 | NUR ---
This manual writer was going to give a bath to patient and rectal temperature taken just prior and revealed to have a temp of 95.9. Bath deferred and Bear hugger initiated. Patient desaturated to 85% during olga care and fio2 increased to 65%.
--- NOTE | 2021-04-11 18:54 | NUR ---
Patient continues to be sedated and on paralytics. On ETT a/c 24 TV 450 fio2 65% Peep 10. Sinus irma on the monitor, hemodynamically stable. Improved HR with Ernesto Hugger. Patient is on Tube feedings, lopez draining appropriately, rectal tube in place, air mattress inflated, Ernesto Hugger is on. Bed in low position, side rails upx2. Will endorse to oncoming shift.
--- NOTE | 2021-04-11 19:30 | NUR ---
Report received. Patient orally intubated and mechanical ventilator. Admitted 04/04/21 for COVID PNA. On isolation. Current vent settings: AC=24, FIO2=65%, PEEP=10 cm and SP=679fq. On Versed, Fentanyl and Norcuron drips via R femoral TLC. BPs stable. compliance monitor: SB rate 50's. Assessment done; see ICU flow sheet for details. Addendum: 04/11/21 at 2201 by GENEVA HERNANDEZ RN Amended: Links added. Addendum: 04/11/21 at 2206 by GENEVA HERNANDEZ RN Amended: Links added.
[2021-04-11] MEDS: PROTEIN SUPPLEMENT (PROSTAT) 30 ML LIQUID GT SCH (19:37)
--- NOTE | 2021-04-11 20:00 | NUR ---
RT at bedside. Turned and repositioned. Skin care provided. O2 Sat down to 89% during turning, but goes back up thereafter. Flexi seal intact; with scant green liquid stools. Tolerating NGT feeds fairly well; rate increased to 40 ml/H. Temp=98.5. Ernesto kirby turned off. Addendum: 04/11/21 at 2206 by GENEVA HERNANDEZ RN Amended: Links added.
[2021-04-11] MEDS: REMDESIVIR (CHARGED) 100 MG in IV NORMAL SALINE 100 ML IV SCH (20:16)
[2021-04-11] MEDS: SIMVASTATIN 40 MG TABLET PO SCH (20:39)
[2021-04-11] MEDS: IV NORMAL SALINE 250 ML IV PRN (22:42)
[2021-04-12] VITALS (31 sets, daily range): BP systolic 121–169; BP diastolic 60–106
--- NOTE | 2021-04-12 | NUR ---
Bathed. Skin care provided. O2 sats still drops in the 80's during repositioning requiring 100% O2 for 3 minutes. Addendum: 04/12/21 at 0151 by GENEVA HERNANDEZ RN Amended: Links added. Addendum: 04/12/21 at 0210 by GENEVA HERNANDEZ RN Amended: Links added.
--- NOTE | 2021-04-12 01:00 | NUR ---
environmental monitoring specialist SB rate 45-49, BPs stable. Skin warm and dry. Temp =98.6 rectally when checked. Patient pulse Ox dropped to 74% when turned for rectal temp check. FIO2 increased to 100% x 2-3 minutes, Os saturations improved. Addendum: 04/12/21 at 0210 by GENEVA HERNANDEZ RN Amended: Links added.
[2021-04-12] MEDS: MIDAZOLAM HCL 50 MG in IV NORMAL SALINE 40 ML IV PRN ×2 (01:12→17:22)
--- NOTE | 2021-04-12 03:00 | NUR ---
Still bradycardic lowest HR 44. BPs stable. Norcuron and Versed drips titrated down. TOF facial nerves 4/ at level 6. Addendum: 04/12/21 at 0543 by GENEVA HERNANDEZ RN Amended: Links added. Addendum: 04/12/21 at 0548 by GENEVA HERNANDEZ RN Amended: Links added.
--- NOTE | 2021-04-12 04:30 | NUR ---
HR improved, rate in the 50's, BPs remains stable.
--- NOTE | 2021-04-12 05:00 | NUR ---
O2 saturations 82-87%. Norcuron drip titrated back up to 0.4 mcg/kg/min. Versed drip kept at 4 mg/H and Fentanyl drip at 150 mcg/H. RT Duran at bedside. FIO2 increased to 80%. Monitored closely. Addendum: 04/12/21 at 0548 by GENEVA HERNANDEZ RN Amended: Links added.
[2021-04-12 05:04] LABS: HEMATOCRIT 27.2 % (31.2-41.9); MEAN CORPUSCULAR HEMOGLOBIN 29.4 uug (24.7-32.8); MEAN CORPUSCULAR VOLUME 87.4 fL (75.5-95.3); PLATELET COUNT (AUTO) 251 K/uL (179-408)
[2021-04-12] MEDS: HYDROCORTISONE SOD SUCCINATE 100 MG/2 ML VIAL IV SCH ×3 (05:12→22:01)
[2021-04-12] MEDS: DEXAMETHASONE SOD PHOSPHATE 4 MG INJ IV SCH (05:12)
[2021-04-12 05:16] LABS: CARBON DIOXIDE 25 mmol/L (21-32); CHLORIDE 114 mmol/L (98-107); CREATININE 1.6 mg/dL (0.6-1.3); GLUCOSE 271 mg/dL (74-106); PHOSPHOROUS 5.1 mg/dL (2.5-4.9); POTASSIUM 3.9 mmol/L (3.5-5.1)
[2021-04-12 05:17] LABS: UREA NITROGEN, BLOOD 87 mg/dL (7-18)
[2021-04-12] MEDS: ALBUMIN HUMAN 25% 100 ML IV SCH (05:18)
[2021-04-12] MEDS: FENTANYL CITRATE/PF 1,000 MCG in IV NORMAL SALINE 80 ML IV PRN ×3 (05:24→17:19)
[2021-04-12] MEDS: BLOOD SUGAR DIAGNOSTIC 1 EACH STRIP VI SCH ×4 (05:26→23:40)
[2021-04-12] MEDS: INSULIN REGULAR, HUMAN 300 UNIT/3 ML VIAL SQ PRN ×4 (05:27→23:41)
[2021-04-12] MEDS: PROTEIN SUPPLEMENT (PROSTAT) 30 ML LIQUID GT SCH (06:08)
[2021-04-12] MEDS: PANTOPRAZOLE SODIUM 40 MG TABLET.DR PO SCH (06:08)
[2021-04-12] MEDS: GLUCERNA 1.2 1000ML LIQUID GT PRN (06:08)
--- NOTE | 2021-04-12 06:39 | NUR ---
O2 saturations 94-97% on current vent settings: AC=24, FIO2=80%, EX=140 ml and PEEP=10 cm. site monitor: SB-SR; rate 50's-60's. BPs stable all night; off vasopressor. On the following drips for sedation via R femoral TLC: Versed at 4 mg/H. Fentanyl at 150 mcg/H. Norcuron at 0.4 mcg/kg/min. Tolerating NGT feedings at 40 ml/H, goal 55 ml/H. Urine zwawru=603 ml during the shift. Covid isolation maintained.
--- NOTE | 2021-04-12 07:10 | NUR ---
Received report from overnight caregiver nurse, patient in bed sedated and on paralytics. ETT 7.5, a/c 24, TV 450, Peep 10, Fio2 80%. Sinus bradycardia, and hemodynamically stable. NG tube in place and checked for placement residuals and bowel sounds. Patient repositioned and tolerated it well.
[2021-04-12] MEDS: Z GUARD REMEDY PASTE 57 GM TUBE TOP SCH ×2 (08:00→20:01)
[2021-04-12] MEDS: ENOXAPARIN SODIUM 30 MG/0.3 ML DISP.SYRIN SQ SCH (08:04)
[2021-04-12 08:16] LABS: ABG BASE EXCESS -1.8 mmol/L; ABG HCO3 22.3 mmol/L; ABG PCO2 36.2 mmHg (35.0-45.0); ABG PH 7.407 (7.350-7.450); ABG PO2 118.4 mmHg (75.0-100.0); ABG SITE RIGHT RADIAL; VENT MODE VENT - A/C; VT, ABG 450 mL
--- NOTE | 2021-04-12 08:34 | NUR ---
RECEIVED PT ON CURRENT VENT SETTINGS WITH NO SIGN OF DISTRESS. SUCTIONED NEEDED WITH MINIMAL SECRETIONS. ABG DRAWN AND CROSSED-OVER. RESULT SHARED WITH ROSEANNE AND WE LOWERED FIO2 TO 70 % WITH PLAN TO TITRATE MORE DEPENDING UPON PROGRESS.
[2021-04-12] MEDS ORDERED: INSULIN GLARGINE,HUM 300 UNITS/3 ML CARTRIDGE SQ SCH (09:00)
[2021-04-12] MEDS: VECURONIUM BROMIDE 50 MG in IV NORMAL SALINE 50 ML IV PRN ×2 (09:46→21:04)
[2021-04-12] MEDS: ASCORBIC ACID 500 MG TABLET NG SCH (09:49)
[2021-04-12] MEDS: CHOLECALCIFEROL 1,000 UNIT TABLET NG SCH (09:49)
[2021-04-12] MEDS ORDERED: MAGNESIUM HYDROXIDE 30 ML LIQUID UDC NG PRN (12:40)
--- NOTE | 2021-04-12 19:21 | NUR ---
Patient continues to be sedated and on paralytics. ETT 7.5, a/c 24, TV 450, Peep 10, Fio2 60%. Sinus bradycardia, and hemodynamically stable. NG tube in place and checked for placement residuals and bowel sounds. Flexiseal has 200cc watery stool in flexiseal. .
--- NOTE | 2021-04-12 19:30 | NUR ---
Received pt on ventilator AC 24, TV 450, PEEP 10, FIO 60%. Pt O2 sats up to 95%. HOB elevated. NSR on monitor. Pt sedated, running vecuronium, versed and fentanyl. No acute distress noted. Gtube feedings on, monitor for residuals. F/C and flexiseal intact and patent. VSS, afebrile. Pt turned and repositioned. Isolation precautions maintained. Continue plan of care.
--- NOTE | 2021-04-12 19:33 | NUR ---
Pt is on a Rizo ventilator on settings of A/C 24, VT 450, PEEP +10 and FIO2-60%. No resp. distress noted. Backup resusc. bag is at bedside. 7.5 ETT is patent and secure at approx. 23cm RIA. Pt to be monitored throughout the shift and PRN SX.
[2021-04-12] MEDS: PROTEIN SUPPLEMENT (PROSTAT) 30 ML LIQUID NG SCH (20:21)
[2021-04-12] MEDS: SIMVASTATIN 40 MG TABLET NG SCH (20:40)
[2021-04-12] MEDS: INSULIN GLARGINE,HUM 300 UNITS/3 ML CARTRIDGE SQ SCH (21:45)
[2021-04-12] MEDS: IV NORMAL SALINE 250 ML IV PRN (23:26)
[2021-04-12] MEDS: GLUCERNA 1.2 1000ML LIQUID NG PRN (23:42)
[2021-04-13] VITALS (24 sets, daily range): BP systolic 148–183; BP diastolic 60–96
[2021-04-13] MEDS: FENTANYL CITRATE/PF 1,000 MCG in IV NORMAL SALINE 80 ML IV PRN ×3 (00:01→19:41)
[2021-04-13] MEDS: ACETAMINOPHEN 325 MG TABLET NG PRN ×2 (02:43→20:39)
[2021-04-13] MEDS: HYDROCORTISONE SOD SUCCINATE 100 MG/2 ML VIAL IV SCH ×3 (05:02→21:15)
[2021-04-13] MEDS: INSULIN REGULAR, HUMAN 300 UNIT/3 ML VIAL SQ PRN ×3 (05:14→23:53)
[2021-04-13] MEDS: BLOOD SUGAR DIAGNOSTIC 1 EACH STRIP VI SCH ×4 (05:14→23:51)
[2021-04-13 05:22] LABS: HEMATOCRIT 29.8 % (31.2-41.9); MEAN CORPUSCULAR HEMOGLOBIN 29.1 uug (24.7-32.8); MEAN CORPUSCULAR VOLUME 88.7 fL (75.5-95.3); PLATELET COUNT (AUTO) 255 K/uL (179-408)
[2021-04-13 05:41] LABS: CARBON DIOXIDE 27 mmol/L (21-32); CHLORIDE 118 mmol/L (98-107); CREATININE 1.6 mg/dL (0.6-1.3); GLUCOSE 208 mg/dL (74-106); MAGNESIUM 3.1 mg/dL (1.8-2.4); PHOSPHOROUS 4.7 mg/dL (2.5-4.9); POTASSIUM 4.6 mmol/L (3.5-5.1)
[2021-04-13 05:44] LABS: UREA NITROGEN, BLOOD 89 mg/dL (7-18)
--- NOTE | 2021-04-13 06:28 | NUR ---
Pt tolerating current vent settings. O2 sats up to 96%, no acute distress noted. Pt desats as low as 86% when being repositioned. HOB elevated maintained. Temp max 100.4 F, Tylenol PO x1 given with relief. NSR on monitor. AM care provided, no new skin breakdown noted. Right fem TLC intact and patent, IV running with Versed @4mg/hr, Fentanyl at 125 mcg/hr, and Norcuron at 0.3 mcg/kg/min. Monitor pt closely. Safety precaution maintained at all times. Will endorse accordingly.
--- NOTE | 2021-04-13 07:20 | NUR ---
Pt received in bed, laying semi-Mendiola's, unable to communicate - obtunded.. Orally intubated, ETT 7.5, approx 23 cm at lip, ETT in place and secure with [place] Fast.. Continuous mechanical ventilation, vent: Rizo with current settings: A/C 24, Vt 450, PEEP +10, FiO2 60%, tolerating well at this time, will continue to monitor.. Alarms on / audible / functinoing normally at this time..
[2021-04-13 08:11] LABS: ABG HCO3 23.7 mmol/L; ABG PCO2 39.5 mmHg (35.0-45.0); ABG PH 7.396 (7.350-7.450); ABG PO2 60.7 mmHg (75.0-100.0); ABG SITE RIGHT RADIAL; ABG TOTAL HEMOGLOBIN 10.6 G/dL (12.0-16.0); MetHb 0.3 % (0.0-1.5); O2Hb 91.1 % (94.0-97.0); VENT MODE VENT - A/C; VT, ABG 450 mL
[2021-04-13] MEDS: VECURONIUM BROMIDE 50 MG in IV NORMAL SALINE 50 ML IV PRN (08:26)
[2021-04-13] MEDS: CHOLECALCIFEROL 1,000 UNIT TABLET NG SCH (08:30)
[2021-04-13] MEDS: PANTOPRAZOLE ORAL SUSPENSION 40 MG SUSPDR.PKT NG SCH (08:30)
[2021-04-13] MEDS: ASCORBIC ACID 500 MG TABLET NG SCH (08:30)
[2021-04-13] MEDS: Z GUARD REMEDY PASTE 57 GM TUBE TOP SCH ×2 (08:31→20:34)
[2021-04-13] MEDS: PROTEIN SUPPLEMENT (PROSTAT) 30 ML LIQUID NG SCH ×2 (08:32→20:35)
[2021-04-13] MEDS: INSULIN GLARGINE,HUM 300 UNITS/3 ML CARTRIDGE SQ SCH ×2 (08:35→21:35)
[2021-04-13] MEDS: ENOXAPARIN SODIUM 30 MG/0.3 ML DISP.SYRIN SQ SCH (08:36)
[2021-04-13] MEDS: MIDAZOLAM HCL 50 MG in IV NORMAL SALINE 40 ML IV PRN (09:21)
[2021-04-13] MEDS: hydrALAZINE HCL 20 MG/1 ML VIAL IV PRN (12:38)
[2021-04-13 13:41] LABS: *BILIRUBIN,URIN NEGATIVE (NEGATIVE); *BLOOD, URINE NEGATIVE (NEGATIVE); *CLARITY,URINE CLEAR (CLEAR); *COLOR,URINE YELLOW (YELLOW); *KETONES,URINE NEGATIVE (NEGATIVE); *UROBILINOGEN,URINE 0.2 E.U./dl (NORMAL); LEUKOCYTE ESTERASE ,URINE NEGATIVE (NEGATIVE); NITRITE, URINE NEGATIVE (NEGATIVE); UGLUCOSE NEGATIVE (NEGATIVE)
--- NOTE | 2021-04-13 19:10 | NUR ---
received patient sedated on fentanyl 100 mcg . versed 4 mg , vecoronium 0.2 mcg , vent ac 24 tv 450 p 10 fio2 60 % , glucerna 1.2 45 ml , placement of ngt checked , residual of 10 ml notd , lopez and flexi seal intact , right femoral central line intact . suctioned thick secretions orally , low grade fever of 99. 2 axillary noted , sr at 74
[2021-04-13] MEDS: SIMVASTATIN 40 MG TABLET NG SCH (20:39)
--- NOTE | 2021-04-13 23:28 | NUR ---
PATIENT ON CONT READ VENT WITH 7.5 ET/TUBE IN PLACE AND SECURED WITH ANCHOR FAST , MOVE Q2S, WITH CURRENT VENT SETTINGS, A/C 24, 450ML, PEEP10, FOI2 @ 60%, NO VENT CHANGES MADE , SUCTION VERY LITTLE SECRETIONS, AND SUCTION MOUTH WITH DILMA IBARRA WELL, PT DE SAT A FEW TIMES, ON 100% FOR FEW MINUTES , THEN OK, PT SEDATED , RESUME FIO2 @ 60% , ALL VENT ALARMS GOOD, AMBU BAG AT BEDSIDE. Whitley KERRP Addendum: 04/13/21 at 2349 by YESENIA SMALL RT Amended: Links added.
[2021-04-13] MEDS: MORPHINE SULFATE 2 MG/1 ML DISP.SYRIN IV PRN (23:41)
[2021-04-14] VITALS (24 sets, daily range): BP systolic 108–160; BP diastolic 52–85
[2021-04-14] MEDS: MIDAZOLAM HCL 50 MG in IV NORMAL SALINE 40 ML IV PRN (00:25)
--- NOTE | 2021-04-14 03:47 | NUR ---
* Exhibits granulation/healing at site * Exhibits decreased drainage at site * Exhibits no s/s of infection * Exhibits a decrease in lesion size * Maintains nutritional status * Maintains hydration status Addendum: 04/14/21 at 346 by JONNA GRANDA RN Amended: Links added. Addendum: 04/14/21 at 347 mor GRANDA RN Amended: Links added.
--- NOTE | 2021-04-14 03:47 | NUR ---
* Maintains a patent airway * Maintains vital signs WNL * Maintains baseline ABG'S * Maintains optimal breath sounds Addendum: 04/14/21 at 346 by JONNA GRANDA RN Amended: Links added. Addendum: 04/14/21 at 347 by JNONA GRANDA RN Amended: Links added.
[2021-04-14] MEDS: MORPHINE SULFATE 2 MG/1 ML DISP.SYRIN IV PRN (04:24)
[2021-04-14 05:07] LABS: HEMATOCRIT 30.1 % (31.2-41.9); MEAN CORPUSCULAR HEMOGLOBIN 28.7 uug (24.7-32.8); PLATELET COUNT (AUTO) 201 K/uL (179-408)
[2021-04-14 05:12] LABS: CARBON DIOXIDE 27 mmol/L (21-32); CHLORIDE 119 mmol/L (98-107); CREATININE 1.5 mg/dL (0.6-1.3); GLUCOSE 231 mg/dL (74-106); MAGNESIUM 2.9 mg/dL (1.8-2.4); PHOSPHOROUS 3.2 mg/dL (2.5-4.9); POTASSIUM 4.5 mmol/L (3.5-5.1); UREA NITROGEN, BLOOD 77 mg/dL (7-18)
[2021-04-14] MEDS: HYDROCORTISONE SOD SUCCINATE 100 MG/2 ML VIAL IV SCH ×3 (05:32→21:53)
[2021-04-14] MEDS: FENTANYL CITRATE/PF 1,000 MCG in IV NORMAL SALINE 80 ML IV PRN (05:32)
--- NOTE | 2021-04-14 06:00 | NUR ---
patient is on ac 24 tv 450 p 10 fio2 80 % , feeding tf is off as ordered increased to 50 ml , placement checked and no residual noted , no fever noted , , mottled in color , vecuronium 0.1 mcg , versed 4 mg , fentanyl 100 mcg , lopez and flexi seal intact
[2021-04-14] MEDS: BLOOD SUGAR DIAGNOSTIC 1 EACH STRIP VI SCH ×3 (06:14→17:31)
[2021-04-14] MEDS: INSULIN REGULAR, HUMAN 300 UNIT/3 ML VIAL SQ PRN ×3 (06:16→17:53)
--- NOTE | 2021-04-14 06:34 | NUR ---
dr ayala is here at bedside notified of current lab work results and patient's current status and medications running
[2021-04-14] MEDS ORDERED: [UNRECOGNIZED DRUG - REMARK] XX PRN (06:45)
[2021-04-14] MEDS: IV D5W 1000ML 1,000 ML IV PRN (07:44)
[2021-04-14] MEDS: ENOXAPARIN SODIUM 30 MG/0.3 ML DISP.SYRIN SQ SCH (08:00)
[2021-04-14] MEDS: INSULIN GLARGINE,HUM 300 UNITS/3 ML CARTRIDGE SQ SCH ×3 (08:09→21:51)
[2021-04-14 08:21] LABS: ABG BASE EXCESS 0.9 mmol/L; ABG HCO3 24.5 mmol/L; ABG PCO2 35.4 mmHg (35.0-45.0); ABG PH 7.458 (7.350-7.450); ABG PO2 60.1 mmHg (75.0-100.0); ABG SITE RIGHT RADIAL; ABG TOTAL HEMOGLOBIN 10.4 G/dL (12.0-16.0); COHb 0.2 % (0.5-1.5); MetHb 0.1 % (0.0-1.5); O2Hb 91.8 % (94.0-97.0); VENT MODE VENT - A/C; VT, ABG 450 mL
[2021-04-14] MEDS: CHOLECALCIFEROL 1,000 UNIT TABLET NG SCH (08:33)
[2021-04-14] MEDS: ASCORBIC ACID 500 MG TABLET NG SCH (08:33)
[2021-04-14] MEDS: PANTOPRAZOLE ORAL SUSPENSION 40 MG SUSPDR.PKT NG SCH (08:33)
[2021-04-14] MEDS: ACETAMINOPHEN 325 MG TABLET NG PRN (08:33)
[2021-04-14] MEDS: PROTEIN SUPPLEMENT (PROSTAT) 30 ML LIQUID NG SCH ×2 (08:34→20:29)
[2021-04-14] MEDS: Z GUARD REMEDY PASTE 57 GM TUBE TOP SCH ×2 (08:34→20:29)
[2021-04-14] MEDS ORDERED: NOREPINEPHRINE BITARTRATE IV PRN (09:00)
[2021-04-14] MEDS ORDERED: DEXTROSE 5% IV PRN (09:00)
[2021-04-14] MEDS ORDERED: INSULIN GLARGINE,HUM 300 UNITS/3 ML CARTRIDGE SQ ONE (09:30)
--- NOTE | 2021-04-14 09:33 | NUR ---
patient already given morning lantus 8 units
[2021-04-14] MEDS: VECURONIUM BROMIDE IV PRN (10:01)
[2021-04-14] MEDS: DEXTROSE 5% IV PRN ×5 (10:01→19:08)
[2021-04-14] MEDS: MIDAZOLAM HCL IV PRN ×2 (10:02→19:08)
[2021-04-14] MEDS: FENTANYL CITRATE IV PRN ×2 (10:02→19:08)
--- NOTE | 2021-04-14 12:00 | NUR ---
Dr. Torrez at bedside and Dr. Jessica to see patient. Informed Dr. Torrez that during repositioning patient decompensates to the 60-70s quickly patient is not tolerating to decrease paralytic further and easily decompensates now. ordered patient can be increased on sedatives and paralytic.
[2021-04-14] MEDS: LORAZEPAM 2 MG/1 ML VIAL IV PRN (14:40)
--- NOTE | 2021-04-14 19:00 | NUR ---
received patient sedated , ac 24 tv 450 , p 10 fio2 75 % . ngt placement checked , no residual noted , glucerna 1.2 50 ml , vecuronium 0.3 mcg , fentanyl 120 mcg , versed 7 mg and d5 W at 50 ml , running , central line right femoral intact , floey and rectal tube intact , no fever noted
[2021-04-14] MEDS: SIMVASTATIN 40 MG TABLET NG SCH (20:30)
[2021-04-15] VITALS (27 sets, daily range): BP systolic 92–151; BP diastolic 52–84
--- NOTE | 2021-04-15 02:00 | NUR ---
residual checked , 10 ml red orange in color , labored deep breathing , tf was decreased to 20 ml
[2021-04-15] MEDS: IV D5W 1000ML 1,000 ML IV PRN ×2 (02:17→19:58)
[2021-04-15] MEDS: BLOOD SUGAR DIAGNOSTIC 1 EACH STRIP VI SCH ×4 (02:56→17:58)
[2021-04-15] MEDS: INSULIN REGULAR, HUMAN 300 UNIT/3 ML VIAL SQ PRN ×4 (02:57→17:59)
[2021-04-15] MEDS: DEXTROSE 5% IV PRN ×7 (03:32→18:52)
[2021-04-15] MEDS: MIDAZOLAM HCL IV PRN ×3 (03:32→16:46)
[2021-04-15] MEDS: FENTANYL CITRATE IV PRN ×3 (03:32→18:52)
[2021-04-15 05:11] LABS: CARBON DIOXIDE 27 mmol/L (21-32); CHLORIDE 114 mmol/L (98-107); CREATININE 1.4 mg/dL (0.6-1.3); GLUCOSE 220 mg/dL (74-106); POTASSIUM 4.6 mmol/L (3.5-5.1); UREA NITROGEN, BLOOD 70 mg/dL (7-18)
[2021-04-15] MEDS: HYDROCORTISONE SOD SUCCINATE 100 MG/2 ML VIAL IV SCH ×3 (05:16→21:13)
[2021-04-15 05:21] LABS: MEAN CORPUSCULAR HEMOGLOBIN 28.8 uug (24.7-32.8); MEAN CORPUSCULAR VOLUME 89.3 fL (75.5-95.3); PLATELET COUNT (AUTO) 173 K/uL (179-408)
[2021-04-15] MEDS: LORAZEPAM 2 MG/1 ML VIAL IV PRN (05:52)
--- NOTE | 2021-04-15 05:57 | NUR ---
PATIENT IS INTUBATED ON A READ VENTILATOR WITH THE FOLLOWING SETTINGS THAT ARE CHARTED ON THE MECHANICAL VENT NOTES. PATIENT HAS A SIZE 7.5 ET TUBE. ET TUBE IS PATENT AND SECURED WITH THE ANCHOR FAST. PATIENT IS STAYING ON 100% FIO2 DUE TO LOW SPO2 READINGS. SPO2 IS CURRENTLY AT 88%. SUCTIONED SMALL SECRETIONS. AMBU BAG IS BY BEDSIDE. VENT IS PLUGGED IN THE RED OUTLET. ALARMS ARE ON AND AUDIBLE. NO SOB NOTED AT THIS TIME.
--- NOTE | 2021-04-15 06:35 | NUR ---
dr ayala is here to see patient , informed of current events on the patient , vent setting ac 24 , tv 450 p 10 fio2 of 100 % , ngt placement checked , residual is orange red in color , 10-ml residual noted running at 30 ml , central line intact , lopez and rectal intact , low grade fever of 99.0 , versed at 7 mg , fentanyl at 120 mcg , vecuronium 0.2 mcg . dw 50 ml running
[2021-04-15] MEDS: MORPHINE SULFATE 2 MG/1 ML DISP.SYRIN IV PRN (07:05)
--- NOTE | 2021-04-15 07:15 | NUR ---
Received report from scene shifter nurse, patient in bed sedated and on paralytics. Patient is sinus rhythm, Hemodynamically stable, on ETT a/c 24, TV 450, fio2 100%, Peep 10. Patients work of breathing appears labored. Patient saturation 85%. Rectal tube is in place draining appropriately, Rocha intact.
--- NOTE | 2021-04-15 07:22 | NUR ---
fentanyl is increased to 140 mcg , vecuronium is increased to 0.3 mcg , versed is till at 7 mg , dw at 50 ml , oxygen saturation is 88 % ,after morphne is given , patient
[2021-04-15 07:53] LABS: ABG BASE EXCESS -1.7 mmol/L; ABG HCO3 23.9 mmol/L; ABG PCO2 43.9 mmHg (35.0-45.0); ABG PH 7.354 (7.350-7.450); ABG PO2 50.1 mmHg (75.0-100.0); ABG SITE LEFT BRACHIAL; ABG TOTAL HEMOGLOBIN 11.2 G/dL (12.0-16.0); COHb 0.4 % (0.5-1.5); MetHb 0.2 % (0.0-1.5); VENT MODE VENT - A/C; VT, ABG 450 mL
[2021-04-15] MEDS: FUROSEMIDE 40 MG/4 ML VIAL IV SCH ×2 (08:01→20:12)
[2021-04-15] MEDS: PANTOPRAZOLE ORAL SUSPENSION 40 MG SUSPDR.PKT NG SCH (08:01)
[2021-04-15] MEDS: ASCORBIC ACID 500 MG TABLET NG SCH (08:01)
[2021-04-15] MEDS: CHOLECALCIFEROL 1,000 UNIT TABLET NG SCH (08:01)
[2021-04-15] MEDS: PROTEIN SUPPLEMENT (PROSTAT) 30 ML LIQUID NG SCH ×2 (08:04→20:24)
[2021-04-15] MEDS: Z GUARD REMEDY PASTE 57 GM TUBE TOP SCH ×2 (08:10→20:13)
[2021-04-15] MEDS: ENOXAPARIN SODIUM 30 MG/0.3 ML DISP.SYRIN SQ SCH (08:11)
[2021-04-15] MEDS: INSULIN GLARGINE,HUM 300 UNITS/3 ML CARTRIDGE SQ SCH ×2 (08:13→21:12)
[2021-04-15] MEDS: VECURONIUM BROMIDE IV PRN (08:17)
--- NOTE | 2021-04-15 08:42 | NUR ---
Dr. Torrez in the unit to evaluate patient, sedation and paralytics increased as ordered, increase Peep to 12 as ordered.
[2021-04-15] MEDS ORDERED: PHENYLEPHRINE IV 50 MG in IV NORMAL SALINE 245 ML IV PRN (11:15)
--- NOTE | 2021-04-15 19:00 | NUR ---
Report given to night time babysitter nurse, patient in bed sedated and on paralytics. Patient is sinus rhythm, Hemodynamically stable, on ETT a/c 24, TV 420, fio2 90%, Peep 12. Patients is comfortable with increased sedation and paralytics as ordered per Dr. Torrez. Patient saturation 100% on 90% fios. Rectal tube is in place draining appropriately, Rocha intact.
--- NOTE | 2021-04-15 19:30 | NUR ---
rounds made patient in bed ,orally intubated ac24/420/fio2 90% peep 12,saturation 98% .breathing deep and tachypneic . via the left femoral triple lumen central line fentanyl 170 mcg/hr versed 8 mg/hr Norcuron 0.5 mcg/kg/min D5W @ 50 ML/HR . NGT -GLUCERNA at 40 ml/hr ,water flushed 200ml q4 hours . RECTAL TUBE + diarrhea liquid stool . f/s q6 and follow insulin sliding scale .
--- NOTE | 2021-04-15 20:00 | NUR ---
flushed ngt with water 200 ml tolerating tube feeding only small residual 20 to 30 ml..
--- NOTE | 2021-04-15 21:00 | NUR ---
turned and reposition patient ,offloaded back with pillows ,elevated bilateral upper and lower extremities with pillow, scds to bilateral lower extremities . air loss mattress used .
--- NOTE | 2021-04-15 23:00 | NUR ---
respiratory therapist at b/s checked vent suction patient and oral care done ,informed respiratory therapist patients with order for sputum for c and s collected and send to lab .
[2021-04-16] VITALS (29 sets, daily range): BP systolic 90–120; BP diastolic 43–62
--- NOTE | 2021-04-16 | NUR ---
fingerstick done q6 and follow insulin sliding scale .
--- NOTE | 2021-04-16 00:30 | NUR ---
right femoral TLC ,central line dressing done aseptically . all port flushed and all port patent .
[2021-04-16] MEDS: MIDAZOLAM HCL IV PRN ×3 (00:51→18:16)
[2021-04-16] MEDS: DEXTROSE 5% IV PRN ×6 (00:51→18:16)
[2021-04-16] MEDS: BLOOD SUGAR DIAGNOSTIC 1 EACH STRIP VI SCH ×4 (01:20→17:29)
[2021-04-16] MEDS: VECURONIUM BROMIDE IV PRN ×2 (01:48→09:50)
--- NOTE | 2021-04-16 04:30 | NUR ---
am care done ,bath patient changed soiled linens and Rocha done ,oral care done .
[2021-04-16 05:05] LABS: HEMATOCRIT 26.9 % (31.2-41.9); MEAN CORPUSCULAR HEMOGLOBIN 28.6 uug (24.7-32.8); MEAN CORPUSCULAR VOLUME 90.4 fL (75.5-95.3); PLATELET COUNT (AUTO) 132 K/uL (179-408)
[2021-04-16 05:19] LABS: ALANINE AMINOTRANSFERASE 46 U/L (14-59); ALKALINE PHOSPHATASE 72 U/L (50-136); ASPARTATE AMINOTRANSFERASE 25 U/L (15-37); BILIRUBIN,TOTAL 0.3 mg/dL (0.2-1.0); CARBON DIOXIDE 29 mmol/L (21-32); CHLORIDE 111 mmol/L (98-107); CREATININE 1.7 mg/dL (0.6-1.3); GLUCOSE 242 mg/dL (74-106); MAGNESIUM 2.6 mg/dL (1.8-2.4); PHOSPHOROUS 6.2 mg/dL (2.5-4.9); POTASSIUM 4.9 mmol/L (3.5-5.1); TOTAL PROTEIN, SERUM 5.3 g/dL (6.4-8.2); UREA NITROGEN, BLOOD 78 mg/dL (7-18)
[2021-04-16] MEDS: INSULIN REGULAR, HUMAN 300 UNIT/3 ML VIAL SQ PRN ×4 (06:00→17:29)
--- NOTE | 2021-04-16 06:00 | NUR ---
flushed tube feeding with water and off tube feeding until 10:00.
[2021-04-16] MEDS: HYDROCORTISONE SOD SUCCINATE 100 MG/2 ML VIAL IV SCH ×3 (06:10→21:08)
--- NOTE | 2021-04-16 07:20 | NUR ---
Received report from special makeup fx artist instructor nurse, patient in bed sedated with ETT 7.5, 23cm at the lipline, ac 24, TV 420, Peep 12, fIo2 90% with a saturation of 100%. Sinus rhythm on the monitor, and hemodynamically stable. Patient has +3 pitting edema on extremities. NGT in place, checked for positive placement. Rectal tube in place with liquid stool. Rocha catheter intact.
[2021-04-16] MEDS: FUROSEMIDE 40 MG/4 ML VIAL IV SCH (08:12)
[2021-04-16] MEDS: CHOLECALCIFEROL 1,000 UNIT TABLET NG SCH (08:12)
[2021-04-16] MEDS: ASCORBIC ACID 500 MG TABLET NG SCH (08:12)
[2021-04-16] MEDS: Z GUARD REMEDY PASTE 57 GM TUBE TOP SCH ×2 (08:13→21:10)
[2021-04-16] MEDS: ENOXAPARIN SODIUM 30 MG/0.3 ML DISP.SYRIN SQ SCH (08:13)
[2021-04-16] MEDS: PROTEIN SUPPLEMENT (PROSTAT) 30 ML LIQUID NG SCH ×2 (08:14→21:11)
[2021-04-16] MEDS: PANTOPRAZOLE ORAL SUSPENSION 40 MG SUSPDR.PKT NG SCH (08:14)
[2021-04-16] MEDS: INSULIN GLARGINE,HUM 300 UNITS/3 ML CARTRIDGE SQ SCH ×2 (08:14→21:12)
[2021-04-16 08:24] LABS: ABG BASE EXCESS 1.7 mmol/L; ABG HCO3 28.9 mmol/L; ABG PCO2 58.9 mmHg (35.0-45.0); ABG PH 7.308 (7.350-7.450); ABG PO2 86.6 mmHg (75.0-100.0); ABG SITE RIGHT RADIAL; ABG TOTAL HEMOGLOBIN 10.5 G/dL (12.0-16.0); COHb 0.6 % (0.5-1.5); MetHb 0.1 % (0.0-1.5); O2Hb 95.3 % (94.0-97.0); VENT MODE VENT - A/C; VT, ABG 420 mL
[2021-04-16] MEDS: FENTANYL CITRATE IV PRN (09:46)
--- NOTE | 2021-04-16 17:50 | NUR ---
PT HAS BEEN STABLE THROUGHOUT SHIFT, PT CONTINUES ON VENT ON SETTINGS OF A/C 24, VT 420, PEEP + 12, FIO2 TITRATED TO 60% DURING SHIFT. SPO2 AND RESPIRATIONS WNL. NO SIGNS OR SYMPTOMS OF RESP. DISTRESS NOTED. BVM AT BEDSIDE. VENT PLUGGED INTO RED OUTLET. SUCTION PRN. WILL CONTINUE TO MONITOR.
[2021-04-16] MEDS: IV D5W 1000ML 1,000 ML IV PRN (18:13)
--- NOTE | 2021-04-16 19:30 | NUR ---
Pt is on a Rizo ventilator on settings of A/C 24, VT 420, PEEP +12 and FIO2-60%. No resp. distress noted. Backup resusc. bag is at bedside. 7.5 ETT is patent and secure at approx. 23cm RIA. Pt to be monitored throughout the shift and PRN SX.
[2021-04-17] VITALS (24 sets, daily range): BP systolic 89–115; BP diastolic 46–61
[2021-04-17] MEDS: BLOOD SUGAR DIAGNOSTIC 1 EACH STRIP VI SCH ×4 (00:08→17:43)
[2021-04-17] MEDS: INSULIN REGULAR, HUMAN 300 UNIT/3 ML VIAL SQ PRN ×4 (00:11→17:46)
[2021-04-17] MEDS: DEXTROSE 5% IV PRN ×7 (01:24→23:11)
[2021-04-17] MEDS: FENTANYL CITRATE IV PRN ×2 (01:24→17:43)
--- NOTE | 2021-04-17 03:05 | NUR ---
Pt FIO2 increased to 70% due to desaturation. RN MONICA aware and notified.
[2021-04-17] MEDS: MIDAZOLAM HCL IV PRN ×3 (03:40→23:11)
[2021-04-17 05:10] LABS: MEAN CORPUSCULAR HEMOGLOBIN 28.9 uug (24.7-32.8); MEAN CORPUSCULAR VOLUME 90.5 fL (75.5-95.3); PLATELET COUNT (AUTO) 130 K/uL (179-408)
[2021-04-17 05:28] LABS: CARBON DIOXIDE 27 mmol/L (21-32); CHLORIDE 105 mmol/L (98-107); GLUCOSE 227 mg/dL (74-106); MAGNESIUM 2.8 mg/dL (1.8-2.4); PHOSPHOROUS 6.7 mg/dL (2.5-4.9); POTASSIUM 4.7 mmol/L (3.5-5.1)
[2021-04-17 05:40] LABS: UREA NITROGEN, BLOOD 92 mg/dL (7-18)
[2021-04-17] MEDS: HYDROCORTISONE SOD SUCCINATE 100 MG/2 ML VIAL IV SCH ×3 (05:40→21:07)
--- NOTE | 2021-04-17 07:37 | NUR ---
Reported Critical Labs BUN 92 and creatinine 2.0 and Hemoglobin [address] Romano.
[2021-04-17 08:15] LABS: ABG BASE EXCESS -1.6 mmol/L; ABG HCO3 24.6 mmol/L; ABG PCO2 48.7 mmHg (35.0-45.0); ABG PH 7.321 (7.350-7.450); ABG PO2 68.5 mmHg (75.0-100.0); ABG SITE RIGHT RADIAL; ABG TOTAL HEMOGLOBIN 9.1 G/dL (12.0-16.0); COHb 1.1 % (0.5-1.5); MetHb 0.3 % (0.0-1.5); O2Hb 92.7 % (94.0-97.0); VENT MODE VENT - A/C; VT, ABG 420 mL
[2021-04-17] MEDS: VECURONIUM BROMIDE IV PRN ×2 (08:51→20:02)
[2021-04-17] MEDS: FUROSEMIDE 40 MG/4 ML VIAL IV SCH (09:01)
[2021-04-17] MEDS: PROTEIN SUPPLEMENT (PROSTAT) 30 ML LIQUID NG SCH ×2 (09:01→21:00)
[2021-04-17] MEDS: CHOLECALCIFEROL 1,000 UNIT TABLET NG SCH (09:01)
[2021-04-17] MEDS: PANTOPRAZOLE ORAL SUSPENSION 40 MG SUSPDR.PKT NG SCH (09:01)
[2021-04-17] MEDS: ASCORBIC ACID 500 MG TABLET NG SCH (09:01)
[2021-04-17] MEDS: INSULIN GLARGINE,HUM 300 UNITS/3 ML CARTRIDGE SQ SCH ×2 (09:03→21:03)
[2021-04-17] MEDS: Z GUARD REMEDY PASTE 57 GM TUBE TOP SCH ×2 (09:04→21:09)
[2021-04-17] MEDS: ENOXAPARIN SODIUM 30 MG/0.3 ML DISP.SYRIN SQ SCH (09:04)
[2021-04-17] MEDS: GLUCERNA 1.2 1000ML LIQUID NG PRN (09:06)
[2021-04-17] MEDS: IV D5W 1000ML 1,000 ML IV PRN (14:14)
--- NOTE | 2021-04-17 17:10 | NUR ---
PT CONTINUES ON VENT. PT STABLE THROUGHOUT SHIFT. VENT CHANGES MADE DURING SHIFT, VT DECREASED TO [address] THOMPSON ORDER. FIO2 TITRATED TO 60%. PT IS TOLERATING VENT SETTINGS WELL, SPO2 AND RESPIRATIONS WNL. NO SIGNS OR SYMPTOMS OF RESP. DISTRESS NOTED. SUCTION PRN. BVM AT BEDSIDE. VENT PLUGGED INTO RED OUTLET. WILL CONTINUE TO MONITOR.
--- NOTE | 2021-04-17 20:00 | NUR ---
NGR 500 cc; returned 250 cc (asp. precautions & no free H2O).
[2021-04-18] VITALS (24 sets, daily range): BP systolic 94–144; BP diastolic 48–72
[2021-04-18] MEDS: BLOOD SUGAR DIAGNOSTIC 1 EACH STRIP VI SCH ×4 (00:10→18:36)
[2021-04-18] MEDS: INSULIN REGULAR, HUMAN 300 UNIT/3 ML VIAL SQ PRN ×4 (00:11→18:37)
[2021-04-18 05:14] LABS: HEMATOCRIT 25.7 % (31.2-41.9); MEAN CORPUSCULAR HEMOGLOBIN 29.1 uug (24.7-32.8); MEAN CORPUSCULAR VOLUME 89.5 fL (75.5-95.3); PLATELET COUNT (AUTO) 142 K/uL (179-408)
[2021-04-18 05:23] LABS: CARBON DIOXIDE 27 mmol/L (21-32); CHLORIDE 102 mmol/L (98-107); GLUCOSE 224 mg/dL (74-106); MAGNESIUM 3.2 mg/dL (1.8-2.4)
[2021-04-18 05:27] LABS: UREA NITROGEN, BLOOD 110 mg/dL (7-18)
[2021-04-18] MEDS: HYDROCORTISONE SOD SUCCINATE 100 MG/2 ML VIAL IV SCH ×3 (05:38→22:02)
[2021-04-18 05:58] LABS: ABG HCO3 24.4 mmol/L; ABG PCO2 49.6 mmHg (35.0-45.0); ABG PO2 59.4 mmHg (75.0-100.0); ABG SITE RIGHT BRACHIAL; ABG TOTAL HEMOGLOBIN 9.3 G/dL (12.0-16.0); COHb 0.7 % (0.5-1.5); MetHb 0.2 % (0.0-1.5); O2Hb 89.5 % (94.0-97.0); VENT MODE VENT - A/C; VT, ABG 400 mL
--- NOTE | 2021-04-18 06:00 | NUR ---
Noted desaturates more on left side.
--- NOTE | 2021-04-18 07:25 | NUR ---
Pt received on cont crawley vent with given settings of AC, RR 24, VT 400, PEEP +12, 60% Fio2. 7.5 ETT @ approx 23cm at the lip. Alarms on and audible. Ambubag at bedside. Ventilator plugged in red outlets. PRN sxn provided with minimal secretions noted. Will continue to monitor throughout shift.
[2021-04-18] MEDS: VECURONIUM BROMIDE IV PRN (07:58)
[2021-04-18] MEDS: DEXTROSE 5% IV PRN ×5 (07:58→23:30)
[2021-04-18] MEDS: FENTANYL CITRATE IV PRN ×2 (07:58→23:30)
[2021-04-18] MEDS: PANTOPRAZOLE ORAL SUSPENSION 40 MG SUSPDR.PKT NG SCH (08:03)
[2021-04-18] MEDS: ASCORBIC ACID 500 MG TABLET NG SCH (08:03)
[2021-04-18] MEDS: CHOLECALCIFEROL 1,000 UNIT TABLET NG SCH (08:03)
[2021-04-18] MEDS: FUROSEMIDE 40 MG/4 ML VIAL IV SCH (08:03)
[2021-04-18] MEDS: PROTEIN SUPPLEMENT (PROSTAT) 30 ML LIQUID NG SCH ×2 (08:09→21:48)
[2021-04-18] MEDS: Z GUARD REMEDY PASTE 57 GM TUBE TOP SCH ×2 (08:09→21:50)
[2021-04-18] MEDS: ENOXAPARIN SODIUM 30 MG/0.3 ML DISP.SYRIN SQ SCH (08:13)
[2021-04-18] MEDS: INSULIN GLARGINE,HUM 300 UNITS/3 ML CARTRIDGE SQ SCH ×2 (08:15→21:50)
[2021-04-18] MEDS: MIDAZOLAM HCL IV PRN ×2 (09:05→17:40)
[2021-04-19] VITALS (23 sets, daily range): BP systolic 103–134; BP diastolic 56–73
[2021-04-19] MEDS: INSULIN REGULAR, HUMAN 300 UNIT/3 ML VIAL SQ PRN ×3 (01:24→18:22)
[2021-04-19] MEDS: VECURONIUM BROMIDE IV PRN ×2 (02:31→07:52)
[2021-04-19] MEDS: DEXTROSE 5% IV PRN ×4 (02:31→13:59)
--- NOTE | 2021-04-19 05:00 | NUR ---
Lab called and notify RN that BUN is 120. Based on previous lab its is trending down. Pt in no acute distress.
[2021-04-19] MEDS: HYDROCORTISONE SOD SUCCINATE 100 MG/2 ML VIAL IV SCH ×3 (05:25→21:42)
[2021-04-19] MEDS: IV NORMAL SALINE 250 ML IV PRN (05:27)
[2021-04-19] MEDS: BLOOD SUGAR DIAGNOSTIC 1 EACH STRIP VI SCH ×4 (05:28→18:21)
[2021-04-19 05:33] LABS: HEMATOCRIT 25.5 % (31.2-41.9); MEAN CORPUSCULAR HEMOGLOBIN 29.2 uug (24.7-32.8); MEAN CORPUSCULAR VOLUME 88.4 fL (75.5-95.3); PLATELET COUNT (AUTO) 152 K/uL (179-408)
[2021-04-19 06:03] LABS: ABG HCO3 24.1 mmol/L; ABG PH 7.327 (7.350-7.450); ABG PO2 55.3 mmHg (75.0-100.0); ABG SITE RIGHT RADIAL; ABG TOTAL HEMOGLOBIN 9.6 G/dL (12.0-16.0); COHb 0.3 % (0.5-1.5); MetHb 0.6 % (0.0-1.5); O2Hb 87.4 % (94.0-97.0); VENT MODE VENT - A/C; VT, ABG 400 mL
[2021-04-19 06:07] LABS: CARBON DIOXIDE 31 mmol/L (21-32); CHLORIDE 104 mmol/L (98-107); CREATININE 1.8 mg/dL (0.6-1.3); FERRITIN 449 ng/mL (8-252); GLUCOSE 166 mg/dL (74-106); LACTATE DEHYDROGENASE 415 U/L (81-234); MAGNESIUM 3.2 mg/dL (1.8-2.4); PHOSPHOROUS 6.3 mg/dL (2.5-4.9); POTASSIUM 4.6 mmol/L (3.5-5.1)
[2021-04-19 06:09] LABS: UREA NITROGEN, BLOOD 120 mg/dL (7-18)
[2021-04-19] MEDS: FENTANYL CITRATE IV PRN (07:50)
[2021-04-19] MEDS: ASCORBIC ACID 500 MG TABLET NG SCH (08:25)
[2021-04-19] MEDS: PANTOPRAZOLE ORAL SUSPENSION 40 MG SUSPDR.PKT NG SCH (08:25)
[2021-04-19] MEDS: CHOLECALCIFEROL 1,000 UNIT TABLET NG SCH (08:26)
[2021-04-19] MEDS: FUROSEMIDE 40 MG/4 ML VIAL IV SCH (08:26)
[2021-04-19] MEDS: PROTEIN SUPPLEMENT (PROSTAT) 30 ML LIQUID NG SCH ×2 (08:27→21:44)
[2021-04-19] MEDS: Z GUARD REMEDY PASTE 57 GM TUBE TOP SCH ×2 (08:28→21:43)
[2021-04-19] MEDS: HEPARIN SODIUM,PORCINE 5,000 UNITS/ML VIAL SQ SCH ×2 (08:31→21:43)
[2021-04-19] MEDS: INSULIN GLARGINE,HUM 300 UNITS/3 ML CARTRIDGE SQ SCH ×2 (08:34→22:28)
--- NOTE | 2021-04-19 10:00 | NUR ---
Dr cheung in unit to see patient. case reviewed no new orders today. asking for possible consult for trach and peg by primary.
--- NOTE | 2021-04-19 12:00 | NUR ---
Doctor galo in the unit to see patient and wants to trial off paralytics and see if patient tolerates to determine whether patient will be transferred out without paralytics or if patient needs to stay with paralytics and be able to do trach and peg here.
[2021-04-19] MEDS: MIDAZOLAM HCL IV PRN (13:59)
--- NOTE | 2021-04-19 17:23 | NUR ---
patient bucking vent at more frequently however is maintaining oxygen saturation and vitals. patient breathing slightly over vent.
--- NOTE | 2021-04-19 19:30 | NUR ---
ROUNDS MADE PATIENT INTUBATED -ETT 7.5 /23 CM (AC24/TV400/PEEP 12 FIO2 60%) WITH SMALL TO MINIMAL SECRETIONS MUSE TO GRANDA IN COLOR .SR ON THE HEART MONITOR WITH OCCASIONAL PVCS. RIGHT FEMORAL CENTRAL LINE TLC. FENTANYL DRIP AT 170 MCG/HR. VERSED DRIP AT 7MG/HR NS AT TKO OFF NORCURON DRIP -STOP TRAIN OF 4. TF VIA THE NGT GLUCERNA AT 40 ML/HR . TOLERATING TF VERY MINIMAL RESIDUAL <20ML .
--- NOTE | 2021-04-19 21:30 | NUR ---
PM CARE DONE ,BATH PATIENT, CHANGED SOILED LINENS AND GOWN ,SKIN CARE DONE . RECTAL TUBE IRRIGATED PATIENT W/LIQUID STOOL BROWNISH IN COLOR .APPLY Z GUARD TO BILATERAL GROIN ,SACRAL AREA ,PLACED MEPILEX . SCDS USED . BILATERAL HEELS OFFLOADED WITH PILLOWS .
--- NOTE | 2021-04-19 22:30 | NUR ---
PATIENT TOLERATING VENT RR 24 ,MAINTAIN SEDATION ON FENTANYL AND VERSED .SEE FLOW SHEET .
[2021-04-20] VITALS (24 sets, daily range): BP systolic 110–148; BP diastolic 61–80
--- NOTE | 2021-04-20 | NUR ---
FINGERSTICK Q6 HOURLY FOLLOW INSULIN SLIDING .
[2021-04-20] MEDS: DEXTROSE 5% IV PRN ×5 (00:12→17:50)
[2021-04-20] MEDS: MIDAZOLAM HCL IV PRN ×3 (00:12→17:50)
[2021-04-20] MEDS: FENTANYL CITRATE IV PRN ×2 (00:16→15:25)
[2021-04-20] MEDS: BLOOD SUGAR DIAGNOSTIC 1 EACH STRIP VI SCH ×5 (00:54→23:45)
[2021-04-20] MEDS: INSULIN REGULAR, HUMAN 300 UNIT/3 ML VIAL SQ PRN ×5 (00:55→23:47)
--- NOTE | 2021-04-20 01:00 | NUR ---
RIGHT FEMORAL CENTRAL LINE DRESSING CHANGED,DRESSING SOILED DONE ASEPTICALLY .
[2021-04-20] MEDS: IV NORMAL SALINE 250 ML IV PRN (01:33)
--- NOTE | 2021-04-20 04:30 | NUR ---
AM LABS COLLECTED VIA THE RIGHT FEMORAL TLC,SEND TO LAB.
[2021-04-20 05:26] LABS: HEMATOCRIT 25.9 % (31.2-41.9); MEAN CORPUSCULAR HEMOGLOBIN 29.1 uug (24.7-32.8); PLATELET COUNT (AUTO) 155 K/uL (179-408)
--- NOTE | 2021-04-20 05:30 | NUR ---
AKIN LEARY CAME FOR PORTABLE CHEST XRAY .
[2021-04-20 05:33] LABS: CARBON DIOXIDE 31 mmol/L (21-32); CHLORIDE 108 mmol/L (98-107); CREATININE 1.8 mg/dL (0.6-1.3); GLUCOSE 172 mg/dL (74-106); MAGNESIUM 3.4 mg/dL (1.8-2.4); POTASSIUM 4.4 mmol/L (3.5-5.1)
[2021-04-20 05:56] LABS: UREA NITROGEN, BLOOD 117 mg/dL (7-18)
[2021-04-20] MEDS: HYDROCORTISONE SOD SUCCINATE 100 MG/2 ML VIAL IV SCH ×3 (06:31→22:12)
[2021-04-20 07:45] LABS: ABG BASE EXCESS -0.2 mmol/L; ABG HCO3 25.4 mmol/L; ABG PCO2 46.1 mmHg (35.0-45.0); ABG PH 7.359 (7.350-7.450); ABG PO2 67.2 mmHg (75.0-100.0); ABG SITE RIGHT RADIAL; ABG TOTAL HEMOGLOBIN 9.7 G/dL (12.0-16.0); COHb 0.1 % (0.5-1.5); MetHb 0.3 % (0.0-1.5); O2Hb 92.1 % (94.0-97.0); VENT MODE VENT - A/C; VT, ABG 400 mL
[2021-04-20] MEDS: FUROSEMIDE 40 MG/4 ML VIAL IV SCH (08:30)
[2021-04-20] MEDS: PANTOPRAZOLE ORAL SUSPENSION 40 MG SUSPDR.PKT NG SCH (08:30)
[2021-04-20] MEDS: CHOLECALCIFEROL 1,000 UNIT TABLET NG SCH (08:30)
[2021-04-20] MEDS: ASCORBIC ACID 500 MG TABLET NG SCH (08:30)
[2021-04-20] MEDS: HEPARIN SODIUM,PORCINE 5,000 UNITS/ML VIAL SQ SCH ×2 (08:31→21:17)
[2021-04-20] MEDS: PROTEIN SUPPLEMENT (PROSTAT) 30 ML LIQUID NG SCH ×2 (08:31→21:16)
[2021-04-20] MEDS: Z GUARD REMEDY PASTE 57 GM TUBE TOP SCH ×2 (08:32→21:18)
[2021-04-20] MEDS: INSULIN GLARGINE,HUM 300 UNITS/3 ML CARTRIDGE SQ SCH ×2 (09:24→22:13)
--- NOTE | 2021-04-20 15:40 | NUR ---
Patient's spO2 decreased to low 70's with minimal position changes then increased slowly back to 90%-94% with current ventilator parameters: AC rate=12, PEEP=12, FiO2=60%, VE=341
[2021-04-20] MEDS ORDERED: IV D5 1/2 NS 1000 ML 1,000 ML IV ONE (17:15)
--- NOTE | 2021-04-20 19:05 | NUR ---
received patient arousable to deep pain with no spontaneous eye opening , versed at7 mg , fentanyl at 170mcg , d5 1/2 ns at 50ml , vent setting of ac 24 tv 400 p10 fio2 @ 60 , ngt plaement checked at glucerna 1.2 40 ml , no residual noted , lopez and central intact , suctioned with minimal secretions orally , no fever noted
[2021-04-20] MEDS: ACETAMINOPHEN 325 MG TABLET NG PRN (23:57)
[2021-04-21] VITALS (23 sets, daily range): BP systolic 115–146; BP diastolic 59–82
[2021-04-21] MEDS: DEXTROSE 5% IV PRN ×4 (01:18→19:41)
[2021-04-21] MEDS: MIDAZOLAM HCL IV PRN ×3 (01:18→19:41)
[2021-04-21 05:23] LABS: HEMATOCRIT 25.4 % (31.2-41.9); MEAN CORPUSCULAR HEMOGLOBIN 29.8 uug (24.7-32.8); MEAN CORPUSCULAR VOLUME 89.2 fL (75.5-95.3); PLATELET COUNT (AUTO) 161 K/uL (179-408)
[2021-04-21 05:33] LABS: CARBON DIOXIDE 32 mmol/L (21-32); CHLORIDE 113 mmol/L (98-107); CREATININE 1.5 mg/dL (0.6-1.3); GLUCOSE 207 mg/dL (74-106); MAGNESIUM 3.1 mg/dL (1.8-2.4); PHOSPHOROUS 3.6 mg/dL (2.5-4.9); POTASSIUM 4.2 mmol/L (3.5-5.1)
[2021-04-21 05:47] LABS: UREA NITROGEN, BLOOD 103 mg/dL (7-18)
--- NOTE | 2021-04-21 06:00 | NUR ---
vent settings the same , ac 24 tv 400 p 12 fio2 60 % , ngt glucerna held as ordered x 22 hours ., placement checked , no residual noted central right femoral , lopez and rectal tube intact , fentany at 170 mcg , versed at 7 mg , d5 1/2 ns at 50 ml , no fever
[2021-04-21] MEDS: HYDROCORTISONE SOD SUCCINATE 100 MG/2 ML VIAL IV SCH ×3 (06:19→21:55)
[2021-04-21] MEDS: BLOOD SUGAR DIAGNOSTIC 1 EACH STRIP VI SCH ×3 (06:33→18:13)
[2021-04-21] MEDS: INSULIN REGULAR, HUMAN 300 UNIT/3 ML VIAL SQ PRN ×2 (06:34→12:16)
[2021-04-21] MEDS: IV D5W 1000ML 1,000 ML IV PRN (07:09)
--- NOTE | 2021-04-21 07:37 | NUR ---
received change of shift report from shift foreman RN. pt sedated on fentanyl 170mcg and versed 7mg. No secretions, intubated 7.5, 23 at lipline, vent settings AC 24, fio2 60%, tv 400, peep 12. NSR, tube feeding via NG tube, tolerating well, glucerna at 50 goal of 65. pt voiding via lopez, flexiseal in place. Right femoral cath running D5 at 50, will continue to monitor.
--- NOTE | 2021-04-21 07:47 | NUR ---
PT ON CONT. MECHANICAL VENTILATION. SETTINGS ARE 24, VT 400, PEEP +12, FIO2 60%. ORALLY INTUBATED WITH 7.5 ETT APPROX. 23CM. NO CHANGES MADE AT THIS TIME. HME CHANGED, SUCTION PRN, ORAL CARE DONE, AND ETT READJUSTED. VENT IS PLUGGED INTO RED EMERGENCY OUTLET. ABG TO BE DONE AT 0800. WILL CONTINUE TO MONITOR.
[2021-04-21] MEDS: CHOLECALCIFEROL 1,000 UNIT TABLET NG SCH (08:23)
[2021-04-21] MEDS: ACETAMINOPHEN 325 MG TABLET NG PRN ×2 (08:23→14:08)
[2021-04-21] MEDS: ASCORBIC ACID 500 MG TABLET NG SCH (08:23)
[2021-04-21] MEDS: PANTOPRAZOLE ORAL SUSPENSION 40 MG SUSPDR.PKT NG SCH (08:23)
[2021-04-21] MEDS: HEPARIN SODIUM,PORCINE 5,000 UNITS/ML VIAL SQ SCH ×2 (08:24→20:41)
[2021-04-21] MEDS: PROTEIN SUPPLEMENT (PROSTAT) 30 ML LIQUID NG SCH ×2 (08:24→20:40)
[2021-04-21] MEDS: FUROSEMIDE 40 MG/4 ML VIAL IV SCH (08:24)
[2021-04-21 08:25] LABS: ABG BASE EXCESS 5.3 mmol/L; ABG HCO3 30.6 mmol/L; ABG PCO2 48.1 mmHg (35.0-45.0); ABG PH 7.421 (7.350-7.450); ABG PO2 57.5 mmHg (75.0-100.0); ABG SITE RIGHT RADIAL; ABG TOTAL HEMOGLOBIN 10.7 G/dL (12.0-16.0); COHb 0.6 % (0.5-1.5); MetHb 0.1 % (0.0-1.5); O2Hb 90.7 % (94.0-97.0); VENT MODE VENT - A/C; VT, ABG 400 mL
[2021-04-21] MEDS: Z GUARD REMEDY PASTE 57 GM TUBE TOP SCH ×2 (08:25→20:40)
[2021-04-21] MEDS: INSULIN GLARGINE,HUM 300 UNITS/3 ML CARTRIDGE SQ SCH ×2 (08:32→21:55)
[2021-04-21] MEDS: FENTANYL CITRATE IV PRN (11:30)
--- NOTE | 2021-04-21 19:00 | NUR ---
received patient sedated , without spontaneous eye opening , vent setting ac24 tv 400 p12 fo2 60 % , ngt running at 50 ml glucerna , placement checked and no residual noted , central line right femoral , lopez and rectal tube intact ,, fentanyl at 170 mcg , versed at 7 mg , d5 at 50 ml
--- NOTE | 2021-04-21 19:05 | NUR ---
Pt is on a Rizo ventilator on settings of A/C 24, VT 400, PEEP +12 and FIO2-60%. No resp. distress noted. Backup resusc. bag is at bedside. 7.5 ETT is patent and secure at approx. 23cm RIA. Pt to be monitored throughout the shift and PRN SX.
[2021-04-21] MEDS ORDERED: GLUCERNA 1.2 1000ML LIQUID GT SCH (22:00)
[2021-04-22] VITALS (24 sets, daily range): BP systolic 105–157; BP diastolic 52–74
[2021-04-22] MEDS: BLOOD SUGAR DIAGNOSTIC 1 EACH STRIP VI SCH ×5 (01:05→23:28)
[2021-04-22] MEDS ORDERED: INSULIN REGULAR, HUMAN 300 UNIT/3 ML VIAL ONE (01:25)
[2021-04-22] MEDS: DEXTROSE 5% IV PRN ×6 (01:41→22:00)
[2021-04-22] MEDS: FENTANYL CITRATE IV PRN ×3 (01:41→22:00)
[2021-04-22] MEDS: IV D5W 1000ML 1,000 ML IV PRN (01:52)
[2021-04-22] MEDS: INSULIN REGULAR, HUMAN 300 UNIT/3 ML VIAL SQ PRN ×4 (02:32→23:29)
[2021-04-22 04:56] LABS: MEAN CORPUSCULAR HEMOGLOBIN 29.1 uug (24.7-32.8); MEAN CORPUSCULAR VOLUME 90.1 fL (75.5-95.3); PLATELET COUNT (AUTO) 166 K/uL (179-408)
[2021-04-22 05:05] LABS: CREATININE 1.3 mg/dL (0.6-1.3); MAGNESIUM 2.9 mg/dL (1.8-2.4); PHOSPHOROUS 3.5 mg/dL (2.5-4.9)
[2021-04-22] MEDS: HYDROCORTISONE SOD SUCCINATE 100 MG/2 ML VIAL IV SCH ×3 (05:14→21:44)
--- NOTE | 2021-04-22 07:20 | NUR ---
PT RECEIVED ON CONT. MECHANICAL VENTILATION. SETTINGS ARE 24, VT 400, PEEP +12, FIO2 60%. ORALLY INTUBATED WITH 7.5 ETT APPROX. 23CM. NO CHANGES MADE AT THIS TIME. HME CHANGED, SUCTION PRN, ORAL CARE DONE, AND ETT READJUSTED. VENT IS PLUGGED INTO RED EMERGENCY OUTLET. WILL CONTINUE TO MONITOR.
[2021-04-22 07:34] LABS: ABG BASE EXCESS 2.8 mmol/L; ABG HCO3 27.8 mmol/L; ABG PCO2 44.3 mmHg (35.0-45.0); ABG PH 7.415 (7.350-7.450); ABG PO2 60.8 mmHg (75.0-100.0); ABG SITE RIGHT RADIAL; ABG TOTAL HEMOGLOBIN 9.5 G/dL (12.0-16.0); COHb 0.6 % (0.5-1.5); MetHb 0.1 % (0.0-1.5); VENT MODE VENT - A/C; VT, ABG 400 mL
--- NOTE | 2021-04-22 09:15 | NUR ---
Dr Vidal at bedside for daily rounds. No new orders at this time. Reviewed recent ABG results. Continue with current vent settings on a Rizo ventilator on settings of A/C 24, VT 400, PEEP +12 and FIO2-60%. via ETT/7.5 @ lip, secure at approximately 23cm. 7.5 ETT is patent and secure at approx. Backup resuscitaion bag is at bedside. No secretions suctioned from ETT. With moderate secretions from oral suctioning via yankauer tube/clear. No respiratory distress noted/sedation continued.
[2021-04-22] MEDS: GLUCERNA 1.2 1000ML LIQUID NG PRN (09:32)
[2021-04-22] MEDS: FUROSEMIDE 40 MG/4 ML VIAL IV SCH (09:32)
[2021-04-22] MEDS: CHOLECALCIFEROL 1,000 UNIT TABLET NG SCH (09:33)
[2021-04-22] MEDS: PANTOPRAZOLE ORAL SUSPENSION 40 MG SUSPDR.PKT NG SCH (09:33)
[2021-04-22] MEDS: ASCORBIC ACID 500 MG TABLET NG SCH (09:33)
[2021-04-22] MEDS: PROTEIN SUPPLEMENT (PROSTAT) 30 ML LIQUID NG SCH ×2 (09:34→20:42)
[2021-04-22] MEDS: Z GUARD REMEDY PASTE 57 GM TUBE TOP SCH ×2 (09:35→21:44)
[2021-04-22] MEDS: INSULIN GLARGINE,HUM 300 UNITS/3 ML CARTRIDGE SQ SCH ×2 (10:12→22:56)
[2021-04-22] MEDS: HEPARIN SODIUM,PORCINE 5,000 UNITS/ML VIAL SQ SCH ×2 (10:12→20:48)
[2021-04-22] MEDS: hydrALAZINE HCL 20 MG/1 ML VIAL IV PRN (12:05)
[2021-04-22 13:15] LABS: ABG BASE EXCESS 3.5 mmol/L; ABG HCO3 28.9 mmol/L; ABG PCO2 47.9 mmHg (35.0-45.0); ABG PH 7.399 (7.350-7.450); ABG PO2 57.3 mmHg (75.0-100.0); ABG SITE RIGHT RADIAL; ABG TOTAL HEMOGLOBIN 10.4 G/dL (12.0-16.0); COHb 0.4 % (0.5-1.5); MetHb 0.1 % (0.0-1.5); O2Hb 90.3 % (94.0-97.0); VENT MODE VENT - A/C; VT, ABG 400 mL
[2021-04-22] MEDS: MIDAZOLAM HCL IV PRN ×2 (13:21→22:00)
[2021-04-22] MEDS: MORPHINE SULFATE 2 MG/1 ML DISP.SYRIN IV PRN (14:01)
--- NOTE | 2021-04-22 14:30 | NUR ---
Change of Condition from 04/22/21 0030 to 1430 0030 - RT notified of patient's SPO2 dropping to 83-85% at this time on current settings. RN was performing noon care when patient started being diaphoretic, having increased respirations, and with audible oral secretions. Oral suctioning done via yankauer tube with moderate thin clear secretions. Pt continues to breathe heavily. 0040 - RT arrived. 0050 - SPO2 probe changed from R finger to earlobe. Vent settings also changed for flow and FiO2. Flow increased from 40 to 60 and FiO2 from 60 to 80%. 0052 - Paged Dr. Tate and messaged as well. VS: BP: 155/70, HR: 88 NSR, RR: 27, SPO2: 93%, T: 98.6 (Rectal). 1300 - Orders received for STAT CXR, STAT ABG, and notify Pulmonary MD. RT notified to do stat ABG, and Radiology notified to do STAT CXR. Increased Fentanyl drip from 170 to 195 mcg/rate. 1313 - S/w Dr. Vidal updated him Re: patient's change in condition. No new orders, call him back ONLY if there are changes on ABG or CXR. fibre technologist is at bedside for Stat CXR. 1315 - RT provided RN with copy of STAT ABG. No major changes from previous results. 1330 - CXR done. Pending official radiology reading. 1335 - RN reassessed patient. Noted that her R shoulder appears to be dislocated, other than that, still slightly diaphoretic and with mildly labored breathing. Rechecked blood sugar as well, and it was 174. No major changes after prior check and insulin administration. 1350 - Messaged Dr. Tate with an update on patient. Pt is saturating from 88-91% at this time. 1351 - Dr Tate arrived at bedside and assessed patient. Per Dr. Tate, we will wait on official radiology result to r/out other issues. He agreed that the R shoulder is dislocated. No interventions at this time, but he ordered Morphine 2mg Q3H PRN for severe pain, and to give 1 now. 1400 - Pt given Morphine 2mg. 1410 - Patient showing slight improvement with breathing. but still not quite at baseline. Respirations has improved to 20-23. Dtr was given an update on patient's condition changes/update on trach issue. Dtr agreed to plan of care to focus on patient's stability at this time. 1430 - RN followed up on official radiology reading of CXR since it is still pending.
--- NOTE | 2021-04-22 15:15 | NUR ---
Received a call from Dr. Vidal re: Chest X-ray results. Per MD, order chest X-ray @ 1800 to r/out pneumothorax and re-start patient on Norcuron drip as previously ordered. Confirmed with pharmacist that loading dose is 0.1 mcg/kg, and okay to start patient on 0.8 mcg/kg. Environmental Remediation Consultant notified that patient will need to be started on Norc drip and machine to monitor TOF is needed.
--- NOTE | 2021-04-22 15:45 | NUR ---
Dr Tate made aware of data report analyst recommendation and new orders. He also ordered stat Labs. Laboratory notified. Per Jake, there are no phlebotomists available until 5pm. RN will draw blood.
--- NOTE | 2021-04-22 15:50 | NUR ---
DECREASE FLOW TO 50 FROM 60 AND FIO2 STILL AT 80% WITH SPO2>=90% WILL CONT TO MONITOR PT.
--- NOTE | 2021-04-22 16:00 | NUR ---
Norcuron drip and peripheral nerve stimulator on hand. RN will draw blood, then measure TOF and start Norc drip as ordered.
[2021-04-22] MEDS: VECURONIUM BROMIDE IV PRN (16:30)
[2021-04-22 16:31] LABS: HEMATOCRIT 30.4 % (31.2-41.9); MEAN CORPUSCULAR HEMOGLOBIN 29.7 uug (24.7-32.8); MEAN CORPUSCULAR VOLUME 90.5 fL (75.5-95.3); PLATELET COUNT (AUTO) 186 K/uL (179-408)
--- NOTE | 2021-04-22 16:35 | NUR ---
All orders carried out at this time. Blood obtained from central line using aseptic techniques and sent to lab. Norcuron drip started as documented on interventions page.
[2021-04-22 16:36] LABS: CARBON DIOXIDE 35 mmol/L (21-32); CHLORIDE 109 mmol/L (98-107); CREATININE 1.4 mg/dL (0.6-1.3); GLUCOSE 125 mg/dL (74-106); POTASSIUM 3.6 mmol/L (3.5-5.1); UREA NITROGEN, BLOOD 72 mg/dL (7-18)
[2021-04-22 16:53] LABS: ALANINE AMINOTRANSFERASE 51 U/L (14-59); ALKALINE PHOSPHATASE 88 U/L (50-136); ASPARTATE AMINOTRANSFERASE 35 U/L (15-37); BILIRUBIN,TOTAL 0.5 mg/dL (0.2-1.0); TOTAL PROTEIN, SERUM 5.9 g/dL (6.4-8.2)
[2021-04-22] MEDS: NUTRISOURCE FIBER 4 GM PACKET GT SCH (17:00)
--- NOTE | 2021-04-22 19:00 | NUR ---
per report of morning shift nurse , dr arana is notified of current troponin and cxr results and patient current status . no orders received
--- NOTE | 2021-04-22 19:05 | NUR ---
patient is sedated fentanyl at 195mcg , versed 7 mg , vecuronium at 0.8 mcg , ngt tf stopped , to advance 10 cm , and checked for placement no residual noted , vent settings ac 24 tv 400 p 12 , fio2 80 % , lopez , rectal tube and central intact . no fever , no seizure ,
--- NOTE | 2021-04-22 19:10 | NUR ---
Patient stable at this time. Still at FiO2: 80%, saturating at 93%. Linen change done. Rectal tube bag changed. Pt is now resting with no signs of distress/labored breathing. Endorsed to Michelle SIEGEL.
--- NOTE | 2021-04-22 19:22 | NUR ---
dr purvis is here to see patient , updates given on current occurences
--- NOTE | 2021-04-22 19:45 | NUR ---
new ngt left nares 16 fr , cxr ordered to verify placement
[2021-04-22] MEDS ORDERED: VANCOMYCIN IV 1,250 MG in IV DEXTROSE 5% 250 ML IV ONE (20:00)
--- NOTE | 2021-04-22 20:30 | NUR ---
cxr done and verified ngt placement
[2021-04-22] MEDS: CEFEPIME HCL 2 G in IV DEXTROSE 5% 100 ML IV SCH (20:50)
[2021-04-23] VITALS (23 sets, daily range): BP systolic 87–125; BP diastolic 42–66
--- NOTE | 2021-04-23 00:32 | NUR ---
PATIENT ON CONT READ VENT WITH 7.5 ET/TUBE IN PLACE AND SECURED WITH ANCHOR FAST, CURRENT VENT SETTINGS, A/C 24, VT 400ML, PEEP 12, FIO2 @ 80% , SAT 96-99% APPROX, SUCTIONED LIGHT GRANDA TINGE SECRETIONS, PT SEDATED, MOVE ANCHOR FAST Q 2 HOURS, CHANGE HME, ALL VENT ALARMS GOOD, NO VENT CHANGES MADE, VENT PLUGGED INTO RED WALL OUT LET, SPUTUM SAMPLE WAS OBTAINED . Whitley SMALL RCP Addendum: 04/23/21 at 0035 by YESENIA SMALL RT Amended: Links added.
[2021-04-23] MEDS: HYDROCORTISONE SOD SUCCINATE 100 MG/2 ML VIAL IV SCH ×3 (05:22→22:18)
[2021-04-23] MEDS: DEXTROSE 5% IV PRN ×7 (06:08→23:11)
[2021-04-23] MEDS: MIDAZOLAM HCL IV PRN ×3 (06:08→23:11)
[2021-04-23] MEDS: BLOOD SUGAR DIAGNOSTIC 1 EACH STRIP VI SCH ×3 (06:09→18:21)
--- NOTE | 2021-04-23 06:20 | NUR ---
Jaxon , RT pulled back ETT 1cm per Dr Patel , ER , based on latest cxr results , vent setting of ac 24 tv 400 p12 fio2 80 % , glucerna 1.2 feeding at 50 ml , placement checked , no residual noted , held as order x 22 order , fentanyl at 195 mcg , versed 7 mg , vercuronium at 0.8 mcg , central line and lopez , rectal tube intact , suctioned orally with thin small secretions
[2021-04-23 06:23] LABS: HEMATOCRIT 28.6 % (31.2-41.9); MEAN CORPUSCULAR HEMOGLOBIN 29.1 uug (24.7-32.8); MEAN CORPUSCULAR VOLUME 90.7 fL (75.5-95.3); PLATELET COUNT (AUTO) 146 K/uL (179-408)
[2021-04-23 07:05] LABS: CREATININE 1.2 mg/dL (0.6-1.3); MAGNESIUM 2.7 mg/dL (1.8-2.4); PHOSPHOROUS 4.2 mg/dL (2.5-4.9); POTASSIUM 3.9 mmol/L (3.5-5.1)
[2021-04-23 07:49] LABS: ABG BASE EXCESS 1.1 mmol/L; ABG HCO3 26.9 mmol/L; ABG PCO2 49.1 mmHg (35.0-45.0); ABG PH 7.357 (7.350-7.450); ABG PO2 65.2 mmHg (75.0-100.0); ABG SITE RIGHT RADIAL; ABG TOTAL HEMOGLOBIN 9.5 G/dL (12.0-16.0); COHb 0.3 % (0.5-1.5); MetHb 0.1 % (0.0-1.5); O2Hb 92.1 % (94.0-97.0); VENT MODE VENT - A/C; VT, ABG 400 mL
[2021-04-23] MEDS: ACETAMINOPHEN 325 MG TABLET NG PRN (08:48)
[2021-04-23] MEDS: CHOLECALCIFEROL 1,000 UNIT TABLET NG SCH (08:48)
[2021-04-23] MEDS: ASCORBIC ACID 500 MG TABLET NG SCH (08:48)
[2021-04-23] MEDS: PANTOPRAZOLE ORAL SUSPENSION 40 MG SUSPDR.PKT NG SCH (08:48)
[2021-04-23] MEDS: FUROSEMIDE 40 MG/4 ML VIAL IV SCH (08:49)
[2021-04-23] MEDS: PROTEIN SUPPLEMENT (PROSTAT) 30 ML LIQUID NG SCH ×2 (08:49→20:21)
[2021-04-23] MEDS: NUTRISOURCE FIBER 4 GM PACKET GT SCH ×2 (08:50→18:21)
[2021-04-23] MEDS: INSULIN GLARGINE,HUM 300 UNITS/3 ML CARTRIDGE SQ SCH ×2 (09:06→20:51)
[2021-04-23] MEDS: HEPARIN SODIUM,PORCINE 5,000 UNITS/ML VIAL SQ SCH ×2 (09:07→20:50)
[2021-04-23] MEDS: CEFEPIME HCL 2 G in IV DEXTROSE 5% 100 ML IV SCH ×2 (09:08→20:18)
[2021-04-23] MEDS: Z GUARD REMEDY PASTE 57 GM TUBE TOP SCH ×2 (09:08→20:21)
[2021-04-23] MEDS: FENTANYL CITRATE IV PRN ×2 (09:17→23:06)
[2021-04-23] MEDS: VECURONIUM BROMIDE IV PRN ×2 (09:17→19:19)
[2021-04-23] MEDS: INSULIN REGULAR, HUMAN 300 UNIT/3 ML VIAL SQ PRN ×2 (12:56→18:22)
--- NOTE | 2021-04-23 18:28 | NUR ---
picc line nurse here to place line. consent signed in chart. replacig femoral line.
--- NOTE | 2021-04-23 19:11 | NUR ---
PLACED PORTABLE CHEST XRAY PER PELON TURK TO VERIFY RIGHT NEW PICCLINE PLACEMENT . PER PELON ITS OK TO USED .
[2021-04-23] MEDS ORDERED: VANCOMYCIN IV 1,000 MG in IV DEXTROSE 5% 250 ML IV SCH (20:00)
--- NOTE | 2021-04-23 20:00 | NUR ---
ROUNDS MADE PATIENT IN BED ORALLY INTUBATED ON AC24/400/PEEP 12 FIO2 70% ,ETT 7.5 -23CM .MODERATE BLOOD TINGED SECRETIONS THIN TO THICK ,ORAL CARE DONE,SUCTION PRN . S/P RIGHT PICCLINE NEWLY INSERTED BY PELON TURK NP.PORTABLE CHEST XRAY ORDERED. XRAY DEVELOPMENT GEOLOGIST CAME AND XRAY WAS DONE . CALL JANNETTE JANG WITH ORDER TO D/C THE RIGHT FEMORAL CENTRAL LINE SINCE SHE HAS A NEW RIGHT UPPER PICCLINE . HOLD HEPARIN FOR NOW . WILL SEND TIP FOR CULTURE . TF VIA THE NGT PATIENT ON GLUCERNA 1.2 @50 ML/HR .TOLERATING TUBE FEEDING ONLY MINIMAL RESIDUAL <50ML .
[2021-04-23] MEDS: GLUCERNA 1.2 1000ML LIQUID NG PRN (21:00)
[2021-04-23] MEDS: VANCOMYCIN IV 1,250 MG in IV DEXTROSE 5% 250 ML IV SCH (22:18)
[2021-04-24] VITALS (29 sets, daily range): BP systolic 91–155; BP diastolic 36–78
[2021-04-24] MEDS: BLOOD SUGAR DIAGNOSTIC 1 EACH STRIP VI SCH ×4 (00:24→17:39)
[2021-04-24] MEDS: INSULIN REGULAR, HUMAN 300 UNIT/3 ML VIAL SQ PRN ×4 (00:26→17:54)
--- NOTE | 2021-04-24 00:30 | NUR ---
AM CARE DONE BATH PATIENT CHANGED SOILED LINENS AND GOWN . IRRIGATED RECTAL (FLEXISEAL )TUBE WITH LIQUID STOOL BROWNISH IN COLOR .
--- NOTE | 2021-04-24 02:30 | NUR ---
D/C RIGHT FEMORAL TLC ,APPLIED PRESSURE FOR 10 MINUTES . PLACED 4X4 AND SECURE WITH TAPE . NO HEMATOMA ,NO BLEEDING NOTED.RIGHT TIP SEND FOR CULTURE .
--- NOTE | 2021-04-24 04:24 | NUR ---
PATIENT ON CONT READ VENT WITH 7.5 E/TUBE IN PLACE AND SECURED, WITH CURRENT VENT SETTINGS, A/C24 4OOML, PEEP 12, FIO2 @ 70%, MOSTLY CONTROLLED VENTILATION, ORAL CARE DONE , SUCTION GRANDA TINGE SECRETIONS, NO VENT CHANGES MADE, NON RESPONSIVE, ALL VENT ALARMS OK, FIO2 @ 70%.Whitley SMALL RCP Addendum: 04/24/21 at 8276 by YESENIA SMALL RT Amended: Links added.
[2021-04-24] MEDS: HYDROCORTISONE SOD SUCCINATE 100 MG/2 ML VIAL IV SCH ×3 (05:28→21:51)
--- NOTE | 2021-04-24 05:30 | NUR ---
upper leather sorter at b/s for patient am labs . collected labs via the the right piccline done aseptically flushed with n/s.
[2021-04-24 06:06] LABS: HEMATOCRIT 26.8 % (31.2-41.9); MEAN CORPUSCULAR HEMOGLOBIN 29.3 uug (24.7-32.8); MEAN CORPUSCULAR VOLUME 90.6 fL (75.5-95.3); PLATELET COUNT (AUTO) 122 K/uL (179-408)
[2021-04-24 06:24] LABS: CREATININE 1.1 mg/dL (0.6-1.3); MAGNESIUM 2.7 mg/dL (1.8-2.4); PHOSPHOROUS 4.6 mg/dL (2.5-4.9); POTASSIUM 3.8 mmol/L (3.5-5.1)
--- NOTE | 2021-04-24 06:29 | NUR ---
xray at b/s for portable chest xray .
[2021-04-24 07:44] LABS: ABG BASE EXCESS 2.5 mmol/L; ABG HCO3 28.7 mmol/L; ABG PCO2 53.5 mmHg (35.0-45.0); ABG PH 7.348 (7.350-7.450); ABG PO2 70.4 mmHg (75.0-100.0); ABG SITE RIGHT RADIAL; ABG TOTAL HEMOGLOBIN 9.2 G/dL (12.0-16.0); COHb 0.5 % (0.5-1.5); MetHb 0.1 % (0.0-1.5); O2Hb 93.5 % (94.0-97.0); VENT MODE VENT - A/C; VT, ABG 400 mL
[2021-04-24] MEDS: PANTOPRAZOLE ORAL SUSPENSION 40 MG SUSPDR.PKT NG SCH (08:37)
[2021-04-24] MEDS: CHOLECALCIFEROL 1,000 UNIT TABLET NG SCH (08:38)
[2021-04-24] MEDS: ASCORBIC ACID 500 MG TABLET NG SCH (08:38)
[2021-04-24] MEDS: FUROSEMIDE 40 MG/4 ML VIAL IV SCH (08:38)
[2021-04-24] MEDS: HEPARIN SODIUM,PORCINE 5,000 UNITS/ML VIAL SQ SCH ×2 (08:39→21:00)
[2021-04-24] MEDS: INSULIN GLARGINE,HUM 300 UNITS/3 ML CARTRIDGE SQ SCH ×2 (08:40→20:57)
[2021-04-24] MEDS: CEFEPIME HCL 2 G in IV DEXTROSE 5% 100 ML IV SCH ×2 (08:41→20:49)
[2021-04-24] MEDS: NUTRISOURCE FIBER 4 GM PACKET GT SCH ×2 (08:42→17:38)
[2021-04-24] MEDS: Z GUARD REMEDY PASTE 57 GM TUBE TOP SCH ×2 (08:42→20:49)
[2021-04-24] MEDS: PROTEIN SUPPLEMENT (PROSTAT) 30 ML LIQUID NG SCH ×2 (08:42→20:50)
[2021-04-24] MEDS: DEXTROSE 5% IV PRN ×6 (09:35→22:25)
[2021-04-24] MEDS: MIDAZOLAM HCL IV PRN ×2 (09:35→18:03)
[2021-04-24] MEDS: FENTANYL CITRATE IV PRN ×2 (09:36→22:25)
[2021-04-24] MEDS: VECURONIUM BROMIDE IV PRN ×2 (10:52→19:16)
--- NOTE | 2021-04-24 19:30 | NUR ---
Received patient on COVID-19 isolation, orally intubated and to mechanical ventilator with settings: AC=24, FIO2=70%, OT=818sd and PEEP=12 cm. O2 saturations 100%. On continuous Fentanyl, Versed and Norcuron drips via infusion pumps and to LUCIO PICC line. Adequately sedated; TOF L facial nerves 1/4 at level 7. Assessment done. Suctioned for scant amounts of carrillo colored secretions. No gag and cough reflexes; oral care done. monitoring and evaluation advisor: SR, rate 60's-70's. BPs stable. Addendum: 04/25/21 at 0333 by GENEVA HERNANDEZ RN Amended: Links added. Addendum: 04/25/21 at 0338 by GENEVA HERNANDEZ RN Amended: Links added. Addendum: 04/25/21 at 0342 by GENEVA HERNANDEZ RN Amended: Links added. Addendum: 04/25/21 at 0343 by GENEVA HERNANDEZ RN Amended: Gregory added.
--- NOTE | 2021-04-24 20:00 | NUR ---
Turned and repositioned. HOB elevated above 30 degrees at all times. Flexi seal intact; with liquid brown stools. R femoral dressing from discontinued TLC changed. Old dressing moderately bloodstained. No active bleeding noted. Addendum: 04/25/21 at 0338 by GENEVA HERNANDEZ RN Amended: Links added. Addendum: 04/25/21 at 0342 by GENEVA HERNANDEZ RN Amended: Links added. Addendum: 12/06/21 at 0343 by GENEVA HERNANDEZ RN Amended: Links added.
--- NOTE | 2021-04-24 21:46 | NUR ---
PATIENT ON CONT READ VENT WITH 7/5 ET/TUBE IN PLACE AND SECURED WITH ANCHOR FAST, VENT SETTINGS, A/C24, 400ML, PEEP 12, 100%, PT WITH MOSTLY CONTROLLED VENTILATION, SUCTION LIGHT GRANDA SECRETIONS, ORAL CARE DONE , ALL VENT ALARMS GOOD, FIO2 @ 70%, AMBU BAG AT BEDSIDE. Whitley KERRP Addendum: 04/24/21 at 2149 by YESENIA SMALL RT Amended: Links added.
[2021-04-24] MEDS: VANCOMYCIN IV 1,250 MG in IV DEXTROSE 5% 250 ML IV SCH (23:45)
[2021-04-25] VITALS (37 sets, daily range): BP systolic 104–179; BP diastolic 38–89
--- NOTE | 2021-04-25 | NUR ---
VS stable. NGT feedings residuals above 60 ml. Feedings held for now; will monitor. Flexi seal gently irrigated; with small amounts of strong foul smelling liquid brown stools. Addendum: 04/25/21 at 0342 by GENEVA HERNANDEZ RN Amended: Links added. Addendum: 04/25/21 at 0343 by GENEVA HERNANDEZ RN Amended: Links added.
[2021-04-25] MEDS: INSULIN REGULAR, HUMAN 300 UNIT/3 ML VIAL SQ PRN ×5 (00:08→23:54)
[2021-04-25] MEDS: BLOOD SUGAR DIAGNOSTIC 1 EACH STRIP VI SCH ×5 (00:08→23:53)
[2021-04-25] MEDS: MIDAZOLAM HCL IV PRN ×3 (01:51→21:13)
[2021-04-25] MEDS: DEXTROSE 5% IV PRN ×6 (01:51→22:15)
--- NOTE | 2021-04-25 02:00 | NUR ---
NGT residuals 50 ml. Will restart feedings and will continue to monitor. Addendum: 04/25/21 at 0343 by GENEVA HERNANDEZ RN Amended: Links added.
[2021-04-25] MEDS: IV NORMAL SALINE 250 ML IV PRN (04:37)
[2021-04-25] MEDS: GLUCERNA 1.2 1000ML LIQUID NG PRN (04:59)
[2021-04-25] MEDS: HYDROCORTISONE SOD SUCCINATE 100 MG/2 ML VIAL IV SCH ×3 (05:26→21:32)
[2021-04-25 05:46] LABS: HEMATOCRIT 26.1 % (31.2-41.9); MEAN CORPUSCULAR HEMOGLOBIN 29.6 uug (24.7-32.8); MEAN CORPUSCULAR VOLUME 90.5 fL (75.5-95.3); PLATELET COUNT (AUTO) 125 K/uL (179-408)
[2021-04-25 05:54] LABS: CREATININE 1.3 mg/dL (0.6-1.3); MAGNESIUM 2.6 mg/dL (1.8-2.4); PHOSPHOROUS 5.1 mg/dL (2.5-4.9); POTASSIUM 4.2 mmol/L (3.5-5.1)
--- NOTE | 2021-04-25 06:39 | NUR ---
Condition unchanged. VS stable. O2 saturations above 96% on FIO2=70%. Adequately sedated with Fentanyl, Versed and Norcuron drips. See IV spread sheet for rates/dosages. TOF L facial nerves 1/4 at level 7; goal achieved. Stool specimen sent for C diff; with very foul smelling liquid brown stools from Flexi seal. (Was negative 04/16/21)
--- NOTE | 2021-04-25 07:30 | NUR ---
Received report for patient on COVID-19 isolation, orally intubated and to mechanical ventilator with settings: AC 24, FIO2 70%, TV 400ml and PEEP 12 cm. O2 saturations 100%. On continuous Fentanyl 195mcg/kg/min, Versed 7 and Norcuron 0.8 via infusion pumps and to LUCIO PICC line. Adequately sedated; TOF L facial nerves 0/4 at level 9. Assessment done. Suctioned for scant amounts of carrillo and white secretions. No gag and cough reflexes; oral care done. SR, BPs stable.
[2021-04-25] MEDS: VECURONIUM BROMIDE IV PRN ×2 (08:30→22:15)
[2021-04-25] MEDS: FUROSEMIDE 40 MG/4 ML VIAL IV SCH (08:35)
[2021-04-25] MEDS: NUTRISOURCE FIBER 4 GM PACKET GT SCH ×2 (08:35→18:05)
[2021-04-25] MEDS: CEFEPIME HCL 2 G in IV DEXTROSE 5% 100 ML IV SCH ×2 (08:38→20:13)
[2021-04-25 08:42] LABS: ABG BASE EXCESS 3.2 mmol/L; ABG HCO3 30.5 mmol/L; ABG PCO2 61.8 mmHg (35.0-45.0); ABG PH 7.311 (7.350-7.450); ABG PO2 90.4 mmHg (75.0-100.0); ABG SITE RIGHT RADIAL; ABG TOTAL HEMOGLOBIN 9.9 G/dL (12.0-16.0); COHb 0.2 % (0.5-1.5); MetHb 0.2 % (0.0-1.5); O2Hb 96.2 % (94.0-97.0); VENT MODE VENT - A/C; VT, ABG 400 mL
[2021-04-25] MEDS: Z GUARD REMEDY PASTE 57 GM TUBE TOP SCH ×2 (08:42→20:11)
[2021-04-25] MEDS: CHOLECALCIFEROL 1,000 UNIT TABLET NG SCH (08:42)
[2021-04-25] MEDS: ASCORBIC ACID 500 MG TABLET NG SCH (08:42)
[2021-04-25] MEDS: PROTEIN SUPPLEMENT (PROSTAT) 30 ML LIQUID NG SCH ×2 (08:42→20:11)
[2021-04-25] MEDS: PANTOPRAZOLE ORAL SUSPENSION 40 MG SUSPDR.PKT NG SCH (08:42)
[2021-04-25] MEDS: INSULIN GLARGINE,HUM 300 UNITS/3 ML CARTRIDGE SQ SCH ×2 (08:43→20:21)
[2021-04-25] MEDS: HEPARIN SODIUM,PORCINE 5,000 UNITS/ML VIAL SQ SCH ×2 (08:44→20:15)
[2021-04-25] MEDS: FENTANYL CITRATE IV PRN (11:57)
--- NOTE | 2021-04-25 19:30 | NUR ---
Report received. Patient orally intubated, to mechanical ventilator settings: AC=24, FIO2=70%, HQ=[id number], PEEP=10 cm. O2 sats 99%. COVID 19 isolation maintained. On continuous Norcuron, Fentanyl and Versed drips via infusion pumps to LUCIO PICC line. TOF L facial nerves 4/4 at level 7. Assessment done. Suctioned for scant amounts of carrillo and white secretions. Addendum: 04/25/21 at 2150 by GENEVA HERNANDEZ RN Amended: Links added.
--- NOTE | 2021-04-25 20:00 | NUR ---
BPs trending higher. O2 sat down to 86% on FIO2 70% during turning and repositioning. FIO2 100% x 2 minutes, Norcuron drip titrated back up to 0.8 mcg/kg/min. Will monitor. Addendum: 04/25/21 at 2122 by GENEVA HERNANDEZ RN Amended: Links added. Addendum: 04/25/21 at 2150 by GENEVA HERNANDEZ RN Amended: Links added.
[2021-04-26] VITALS (31 sets, daily range): BP systolic 97–156; BP diastolic 35–78
[2021-04-26] MEDS: DEXTROSE 5% IV PRN ×5 (00:07→14:31)
[2021-04-26] MEDS: FENTANYL CITRATE IV PRN ×2 (00:07→14:31)
[2021-04-26] MEDS: IV NORMAL SALINE 250 ML IV PRN (01:54)
[2021-04-26] MEDS: GLUCERNA 1.2 1000ML LIQUID NG PRN (02:01)
--- NOTE | 2021-04-26 04:00 | NUR ---
RECEIVED PATIENT ON A READ VENTILATOR INTUBATED WITH A SIZE 7.5 ET TUBE. ET TUBE IS SECURED WITH ANCHOR FAST. PATIENT IS ON THE FOLLOWING SETTINGS THAT ARE CHARTED ON THE MECHANICAL NOTES. AMBU BAG IS BY BEDSIDE. VENT IS PLUGGED IN THE RED OUTLET. VENT ALARMS ON AND AUDIBLE. NO SOB NOTED AT THIS TIME. WILL CONTINUE TO MONITOR.
[2021-04-26] MEDS: BLOOD SUGAR DIAGNOSTIC 1 EACH STRIP VI SCH ×3 (05:16→18:10)
[2021-04-26 05:17] LABS: HEMATOCRIT 26.9 % (31.2-41.9); MEAN CORPUSCULAR HEMOGLOBIN 29.7 uug (24.7-32.8); MEAN CORPUSCULAR VOLUME 91.2 fL (75.5-95.3); PLATELET COUNT (AUTO) 129 K/uL (179-408)
[2021-04-26] MEDS: INSULIN REGULAR, HUMAN 300 UNIT/3 ML VIAL SQ PRN ×3 (05:17→18:11)
[2021-04-26] MEDS: HYDROCORTISONE SOD SUCCINATE 100 MG/2 ML VIAL IV SCH ×2 (05:19→13:20)
[2021-04-26] MEDS: MIDAZOLAM HCL IV PRN ×2 (05:30→13:07)
[2021-04-26 05:41] LABS: CARBON DIOXIDE 33 mmol/L (21-32); CHLORIDE 104 mmol/L (98-107); CREATININE 1.4 mg/dL (0.6-1.3); FERRITIN 399 ng/mL (8-252); GLUCOSE 190 mg/dL (74-106); LACTATE DEHYDROGENASE 336 U/L (81-234); MAGNESIUM 2.6 mg/dL (1.8-2.4); PHOSPHOROUS 4.6 mg/dL (2.5-4.9); POTASSIUM 4.3 mmol/L (3.5-5.1)
[2021-04-26 05:57] LABS: ABG BASE EXCESS 3.6 mmol/L; ABG HCO3 30.6 mmol/L; ABG PH 7.325 (7.350-7.450); ABG PO2 159.8 mmHg (75.0-100.0); ABG SITE RIGHT RADIAL; ABG TOTAL HEMOGLOBIN 9.8 G/dL (12.0-16.0); COHb 0.4 % (0.5-1.5); MetHb 0.3 % (0.0-1.5); O2Hb 98.3 % (94.0-97.0); VENT MODE VENT - A/C; VT, ABG 400 mL
[2021-04-26 06:04] LABS: UREA NITROGEN, BLOOD 88 mg/dL (7-18)
--- NOTE | 2021-04-26 06:30 | NUR ---
ABGs drawn by RT; CT4=223, FIO2 decreased to 60% by Nam RT. Will monitor. Adequately sedated with Fentanyl, Versed and Norcuron drips via LUCIO PICC line. telemetry monitor: SR rate in the 90's. BPs stable.
--- NOTE | 2021-04-26 07:20 | NUR ---
Received report for patient on COVID-19 isolation, orally intubated and to mechanical ventilator with settings: AC 24, FIO2 70%, TV 400ml and PEEP 10 cm. O2 saturations 94%. On continuous Fentanyl 195mcg/kg/min, Versed 7 and Norcuron 0.8 via infusion pumps and to LUCIO PICC line. Adequately sedated; TOF L facial nerves 2/4 at level 7. Assessment done. Suctioned for scant amounts of carrillo and white secretions. No gag and cough reflexes; oral care done. SR, BPs stable.
[2021-04-26] MEDS: PANTOPRAZOLE ORAL SUSPENSION 40 MG SUSPDR.PKT NG SCH (08:43)
[2021-04-26] MEDS: ASCORBIC ACID 500 MG TABLET NG SCH (08:44)
[2021-04-26] MEDS: CHOLECALCIFEROL 1,000 UNIT TABLET NG SCH (08:44)
[2021-04-26] MEDS: PROTEIN SUPPLEMENT (PROSTAT) 30 ML LIQUID NG SCH ×2 (08:46→20:36)
[2021-04-26] MEDS: NUTRISOURCE FIBER 4 GM PACKET GT SCH ×2 (08:46→16:33)
[2021-04-26] MEDS: CEFEPIME HCL 2 G in IV DEXTROSE 5% 100 ML IV SCH ×2 (08:47→20:35)
[2021-04-26] MEDS: Z GUARD REMEDY PASTE 57 GM TUBE TOP SCH (08:51)
[2021-04-26] MEDS: INSULIN GLARGINE,HUM 300 UNITS/3 ML CARTRIDGE SQ SCH (08:52)
[2021-04-26] MEDS: HEPARIN SODIUM,PORCINE 5,000 UNITS/ML VIAL SQ SCH ×2 (08:53→20:35)
[2021-04-26] MEDS: VECURONIUM BROMIDE IV PRN (11:16)
[2021-04-26] MEDS ORDERED: IV LACTATED RINGERS SOLUTION 1,000 ML IV PRN (18:45)
--- NOTE | 2021-04-26 19:05 | NUR ---
received patient sedated , fentanyl at 195 mcg , versed 7 mg , vecuronium 0.8 mcg , ac of 24 tv 400 p 10 fio2 70 % , ngt placement checked , residual 15 ml , glucerna 1.2 55 ml , lopez and rectal and picc line intact , no fever noted
--- NOTE | 2021-04-26 19:25 | NUR ---
Pt is on a Rizo ventilator on settings of A/C 24, VT 400, PEEP +10 and FIO2-70%. No resp. distress noted. BVM is at bedside. 7.5 ETT is patent and secure at approx. 23cm RIA. Pt to be monitored throughout the shift and PRN SX. Rizo alarm parameters have been checked and remain audible.
[2021-04-27] VITALS (29 sets, daily range): BP systolic 109–187; BP diastolic 17–75
[2021-04-27] MEDS: HYDROCORTISONE SOD SUCCINATE 100 MG/2 ML VIAL IV SCH ×4 (00:48→21:36)
[2021-04-27] MEDS: ACETAMINOPHEN 325 MG TABLET NG PRN (00:49)
[2021-04-27] MEDS: INSULIN GLARGINE,HUM 300 UNITS/3 ML CARTRIDGE SQ SCH ×3 (00:54→20:41)
[2021-04-27] MEDS: Z GUARD REMEDY PASTE 57 GM TUBE TOP SCH ×3 (00:55→20:32)
[2021-04-27] MEDS: FENTANYL CITRATE IV PRN ×3 (02:56→23:14)
[2021-04-27] MEDS: DEXTROSE 5% IV PRN ×6 (02:56→23:14)
[2021-04-27] MEDS: GLUCERNA 1.2 1000ML LIQUID NG PRN (04:08)
[2021-04-27] MEDS: BLOOD SUGAR DIAGNOSTIC 1 EACH STRIP VI SCH ×5 (04:18→23:41)
[2021-04-27] MEDS: INSULIN REGULAR, HUMAN 300 UNIT/3 ML VIAL SQ PRN ×4 (04:20→23:50)
[2021-04-27] MEDS: hydrALAZINE HCL 20 MG/1 ML VIAL IV PRN (05:03)
[2021-04-27 05:28] LABS: ABG BASE EXCESS 1.5 mmol/L; ABG PCO2 62.5 mmHg (35.0-45.0); ABG PH 7.285 (7.350-7.450); ABG PO2 68.4 mmHg (75.0-100.0); ABG SITE RIGHT RADIAL; ABG TOTAL HEMOGLOBIN 9.9 G/dL (12.0-16.0); COHb 0.4 % (0.5-1.5); MetHb 0.3 % (0.0-1.5); O2Hb 92.9 % (94.0-97.0); VENT MODE VENT - A/C; VT, ABG 400 mL
[2021-04-27 05:49] LABS: HEMATOCRIT 30.2 % (31.2-41.9); MEAN CORPUSCULAR VOLUME 91.5 fL (75.5-95.3); PLATELET COUNT (AUTO) 144 K/uL (179-408)
--- NOTE | 2021-04-27 06:00 | NUR ---
patient is on fentanyl 195 mcg , versed 7 mg , vecuronium 0.8 mcg , tf held as ordered x 22 hours , no residual noted , placement checked , no fever , cxr done , picc lien , lopez and rectal tube intact
[2021-04-27 06:01] LABS: ALANINE AMINOTRANSFERASE 116 U/L (14-59); ALKALINE PHOSPHATASE 156 U/L (50-136); ASPARTATE AMINOTRANSFERASE 94 U/L (15-37); BILIRUBIN,TOTAL 0.4 mg/dL (0.2-1.0); CARBON DIOXIDE 32 mmol/L (21-32); CHLORIDE 101 mmol/L (98-107); CREATININE 1.8 mg/dL (0.6-1.3); GLUCOSE 214 mg/dL (74-106); MAGNESIUM 2.9 mg/dL (1.8-2.4); PHOSPHOROUS 5.2 mg/dL (2.5-4.9); POTASSIUM 4.6 mmol/L (3.5-5.1); TOTAL PROTEIN, SERUM 6.4 g/dL (6.4-8.2)
[2021-04-27 06:02] LABS: UREA NITROGEN, BLOOD 104 mg/dL (7-18)
[2021-04-27] MEDS: MIDAZOLAM HCL IV PRN ×2 (06:43→20:26)
[2021-04-27] MEDS: PANTOPRAZOLE ORAL SUSPENSION 40 MG SUSPDR.PKT NG SCH (08:00)
[2021-04-27] MEDS: ASCORBIC ACID 500 MG TABLET NG SCH (08:00)
[2021-04-27] MEDS: CHOLECALCIFEROL 1,000 UNIT TABLET NG SCH (08:00)
[2021-04-27] MEDS: PROTEIN SUPPLEMENT (PROSTAT) 30 ML LIQUID NG SCH ×2 (08:01→20:32)
[2021-04-27] MEDS: CEFEPIME HCL 2 G in IV DEXTROSE 5% 100 ML IV SCH ×2 (08:01→20:31)
[2021-04-27] MEDS: NUTRISOURCE FIBER 4 GM PACKET GT SCH ×2 (08:02→17:22)
[2021-04-27] MEDS: HEPARIN SODIUM,PORCINE 5,000 UNITS/ML VIAL SQ SCH ×2 (08:04→20:43)
[2021-04-27] MEDS ORDERED: VANCOMYCIN IV 1,000 MG in IV DEXTROSE 5% 250 ML IV SCH ×2 (08:45→10:00)
[2021-04-27] MEDS: VECURONIUM BROMIDE IV PRN (10:57)
--- NOTE | 2021-04-27 13:09 | NUR ---
Notified Dr. Epstein of patients weeping and edema and chemistries. Received orders to Discontinue IV fluids.
[2021-04-27] MEDS ORDERED: FUROSEMIDE 40 MG/4 ML VIAL IV ONE (13:45)
[2021-04-27] MEDS ORDERED: ALBUMIN HUMAN 25% 100 ML IV ONE (13:45)
--- NOTE | 2021-04-27 19:04 | NUR ---
Patient seen by Morgan Jacome. Family is in the hospital, conference to be held for updates.
--- NOTE | 2021-04-27 19:08 | NUR ---
Report given to night stocker nurse. Patient continues to be intubated on sedation and norcuron. Hemodynamically stable, Sinus rhythm on the monitor, saturation 100%. Rocha draining, rectal tube in place. No distress noted at this time.
--- NOTE | 2021-04-27 19:30 | NUR ---
Report received. Patient orally intubated, to mechanical ventilator settings: AC=24, FIO2=70%, GC=990np, PEEP=10 cm. O2 sats 98-100%. On COVID 19 isolation. Sedated. On neuromuscular blocking agent via LUCIO PICC line. TOF L facial nerves 4/4 at level 7. Suctioned for scant amounts of carrillo, white secretions via ETT and orally. RT Jaxon at bedside. Desaturated briefly during turning and repositioning. Flexi seal intact with foul smelling liquid brown stools. Tolerating NGT feedings of Glucerna at 55 ml/H. With marked anasarca; both arms oozing serosanguineous fluids. Assessment completed. Addendum: 04/27/21 at 2122 by GENEVA HERNANDEZ RN Amended: Links added. Addendum: 04/27/21 at 2122 by GENEVA HERNANDEZ RN Amended: Links added. Addendum: 04/27/21 at 2122 by GENEVA HERNANDEZ RN Amended: Links added. Addendum: 04/27/21 at 2122 by GENEVA HERNANDEZ RN Amended: Links added. Addendum: 04/27/21 at 4 by GENEVA HERNANDEZ RN Amended: Links added. Addendum: 04/27/21 at 2124 by GENEVA HERNANDEZ RN Amended: Links added. Addendum: 04/27/21 at 2124 by GENEVA HERNANDEZ RN Amended: Links added. Addendum: 04/27/21 at 2123 by GENEVA HERNANDEZ RN Amended: Links added. Addendum: 04/27/21 at 4 by GENEVA HERNANDEZ RN Amended: Links added. Addendum: 04/27/21 at 5 by GENEVA HERNANDEZ RN Amended: Links added. Addendum: 04/27/21 at 2125 by GENEVA HERNANDEZ RN Amended: Links added. Addendum: 04/27/21 at 2126 by GENEVA HERNANDEZ RN Amended: Links added.
[2021-04-27] MEDS ORDERED: BUMETANIDE 1 MG/4 ML VIAL IV ONE (20:00)
--- NOTE | 2021-04-27 23:09 | NUR ---
PATIENT ON CONT READ VENT WITH 7.5 ET/TUBE IN PLACE WITH ANCHOR FAST IN PLACE AND SECURED, WITH CURRENT VENT SETTINGS, A/C 24, 400ML, PEEP 10 , FIO2 @ 70%, NO VENT CHANGES MADE, SUCTION MOUTH WHITISH TINGE SECRETIONS, ALL VENT ALARMS GOOD, AMBU BAG AT BEDSIDE, ABG TO BE DONE BEFORE 0700 ON STEWARD/STEWARDESS WINE .Whitley SMALL RCP Addendum: 04/27/21 at 2312 by YESENIA SMALL RT Amended: Links added.
[2021-04-27] MEDS: IV NORMAL SALINE 250 ML IV PRN (23:43)
[2021-04-28] VITALS (27 sets, daily range): BP systolic 90–168; BP diastolic 34–77
[2021-04-28] MEDS: VECURONIUM BROMIDE IV PRN ×2 (00:04→14:39)
[2021-04-28] MEDS: DEXTROSE 5% IV PRN ×5 (00:04→23:47)
[2021-04-28] MEDS: GLUCERNA 1.2 1000ML LIQUID NG PRN (01:30)
--- NOTE | 2021-04-28 02:00 | NUR ---
BP 90 systole. Remains NSR. Versed and Fentanyl drips titrated down. Adequately sedated.
--- NOTE | 2021-04-28 06:13 | NUR ---
Status quo. Adequately sedated with the following drips: Versed at 6mg/H, Fentanyl at 190 mcg/H and Norcuron at 0.8 mcg/kg/min. TOF L facial nerves 4/4 at level 7. alarm security or surveillance monitor: SR rate70's-80's. BPs stable. Tolerating NGT feedings at 55 ml/H, residuals minimal. Off [id number]. Urine output only 170 ml during the shift even after Bumex 2 mg IV. Flexi seal drained 300 ml of liquid brown foul smelling stools. Covid 19 isolation maintained.
[2021-04-28] MEDS: HYDROCORTISONE SOD SUCCINATE 100 MG/2 ML VIAL IV SCH ×3 (06:15→21:05)
[2021-04-28] MEDS: BLOOD SUGAR DIAGNOSTIC 1 EACH STRIP VI SCH ×4 (06:16→23:44)
[2021-04-28 06:26] LABS: ABG BASE EXCESS 2.1 mmol/L; ABG HCO3 29.8 mmol/L; ABG PCO2 65.6 mmHg (35.0-45.0); ABG PH 7.275 (7.350-7.450); ABG PO2 68.3 mmHg (75.0-100.0); ABG SITE LEFT RADIAL; ABG TOTAL HEMOGLOBIN 9.1 G/dL (12.0-16.0); COHb 0.6 % (0.5-1.5); MetHb 0.2 % (0.0-1.5); O2Hb 92.8 % (94.0-97.0); VENT MODE VENT - A/C; VT, ABG 400 mL
[2021-04-28 06:35] LABS: HEMATOCRIT 25.4 % (31.2-41.9); MEAN CORPUSCULAR VOLUME 91.4 fL (75.5-95.3); PLATELET COUNT (AUTO) 107 K/uL (179-408)
[2021-04-28 07:43] LABS: CARBON DIOXIDE 31 mmol/L (21-32); CHLORIDE 98 mmol/L (98-107); CREATININE 2.4 mg/dL (0.6-1.3); GLUCOSE 141 mg/dL (74-106); PHOSPHOROUS 6.7 mg/dL (2.5-4.9); POTASSIUM 5.1 mmol/L (3.5-5.1)
[2021-04-28 07:49] LABS: UREA NITROGEN, BLOOD 127 mg/dL (7-18)
--- NOTE | 2021-04-28 07:52 | NUR ---
PT RECEIVED ON CONTINUOUS MECHANICAL VENTILATION. PT IS ORALLY INTUBATED WITH 7.5 ETT AT 23CM AT THE LIP. VENT SETTINGS ARE AC 24, VT 400, PEEP +10, 70%. NO CHANGES MADE AT THIS TIME. ETT READJUSTED AND HME CHANGED. ORAL CARE DONE. SUCTION NEEDED. VENT ALARMS CHECKED, ARE ON AND AUDIBLE. AMBU BAG AT BEDSIDE. VENT PLUGGED INTO RED EMERGENCY OUTLET. WILL CONTINUE TO MONITOR PT.
--- NOTE | 2021-04-28 08:00 | NUR ---
RECEIVED CHANGE OF SHIFT REPORT, PT INTUBATED, SEDATED AND PARALYZED ON VERSED 6, NORCURON 0.8, FENTANYL 190. VENT SETTINGS AT AC24, PEEP 10, TV 400, FIO2 AT 70% PT SATURATING AT 97%. SMALL AMOUNT SECRETIONS, WHITE/GRANDA COLOR, TRAIN OF FOUR 4/4 ON 7.
[2021-04-28] MEDS: Z GUARD REMEDY PASTE 57 GM TUBE TOP SCH ×2 (09:27→20:05)
[2021-04-28] MEDS: PROTEIN SUPPLEMENT (PROSTAT) 30 ML LIQUID NG SCH ×2 (09:27→20:04)
[2021-04-28] MEDS: HEPARIN SODIUM,PORCINE 5,000 UNITS/ML VIAL SQ SCH ×2 (09:33→20:43)
[2021-04-28] MEDS: ASCORBIC ACID 500 MG TABLET NG SCH (09:34)
[2021-04-28] MEDS: PANTOPRAZOLE ORAL SUSPENSION 40 MG SUSPDR.PKT NG SCH (09:34)
[2021-04-28] MEDS: CHOLECALCIFEROL 1,000 UNIT TABLET NG SCH (09:34)
[2021-04-28] MEDS: CEFEPIME HCL 2 G in IV DEXTROSE 5% 100 ML IV SCH ×2 (10:07→20:04)
[2021-04-28] MEDS: INSULIN GLARGINE,HUM 300 UNITS/3 ML CARTRIDGE SQ SCH ×2 (10:12→20:42)
[2021-04-28] MEDS: NUTRISOURCE FIBER 4 GM PACKET GT SCH ×2 (10:13→17:14)
--- NOTE | 2021-04-28 11:00 | NUR ---
consent for HD and catheter placement obtain via phone from daughter
--- NOTE | 2021-04-28 11:30 | NUR ---
DARRYL Ledbetter called to ensure consent obtained, orders given for catheter placement.
[2021-04-28] MEDS: INSULIN REGULAR, HUMAN 300 UNIT/3 ML VIAL SQ PRN ×3 (12:57→23:45)
[2021-04-28] MEDS: FENTANYL CITRATE IV PRN (13:24)
--- NOTE | 2021-04-28 13:40 | NUR ---
DIALYSIS STARTED, WILL CONTINUE TO MONITOR
[2021-04-28] MEDS: MIDAZOLAM HCL IV PRN ×2 (14:39→23:47)
--- NOTE | 2021-04-28 15:36 | NUR ---
TITRATED FIO2 TO 60%. WILL CONTINUE TO MONITOR.
--- NOTE | 2021-04-28 19:00 | NUR ---
Received patient nonverbal, sedated; on COVID isolation; no signs of pain nor distress noted. ET 7.5, 23 LL with vent settings of: AC 24, TV 400, PEEP 10, FiO2 60, O2 sat=97%; SR on the monitor, HR= 62, SL=915/40, NG tube with TF Glucerna 1.2 @55mls/hr x 22 hours, with gastric residual of 60ml. LUCIO PICC line soiled with blood, dressing changed. IV lines with the following drips: Norcuron 0.8mcg/kg/min, Fentanyl @ 195 mcg/hr, Versed @ 7mg/hr. Rocha catheter draining well to gravity with minimal output. Flexiseal intact. Will continue to monitor closely.
--- NOTE | 2021-04-28 23:32 | NUR ---
PATIENT ON CONT READ VENT WITH 7.5 ET/TUBE IN PLACE AND SECURED WITH ANCHOR FAST , ROTATE Q2 HOURS, SUCTIONED AT TIMES SLIGHT BLOODY TINGE SECRETIONS, CLEARED BY NS LAVAGE, NO VENT CHANGES MADE, ALL VENT ALARMS GOOD, CURRENT VENT SETTINGS, A/C 24,400ML, PEEP10 , FIO2 @ 60%, MOSTLY CONTROLLED VENTILATION, AMBU BAG AT BEDSIDE, VENT PLUGGED INTO RED WALL OUT.Whitley SMALL RCP Addendum: 04/28/21 at 2335 by YESENIA FORD Amended: Links added.
[2021-04-29] VITALS (23 sets, daily range): BP systolic 113–168; BP diastolic 30–54
[2021-04-29] MEDS: hydrALAZINE HCL 20 MG/1 ML VIAL IV PRN (00:06)
--- NOTE | 2021-04-29 02:00 | NUR ---
No significant change of condition noted. Will continue to monitor closely.
[2021-04-29] MEDS: VECURONIUM BROMIDE IV PRN ×2 (02:19→16:08)
[2021-04-29] MEDS: DEXTROSE 5% IV PRN ×6 (02:19→20:34)
[2021-04-29] MEDS: FENTANYL CITRATE IV PRN ×2 (02:34→16:48)
[2021-04-29] MEDS: GLUCERNA 1.2 1000ML LIQUID NG PRN (02:37)
--- NOTE | 2021-04-29 04:00 | NUR ---
AM care done. Linen changed.
--- NOTE | 2021-04-29 04:45 | NUR ---
Patient O2 sat 81%. Given 100% O2 from the ventilator, suctioned patient. O2 increased to 92%.
[2021-04-29] MEDS: HYDROCORTISONE SOD SUCCINATE 100 MG/2 ML VIAL IV SCH ×3 (05:27→21:33)
--- NOTE | 2021-04-29 05:30 | NUR ---
O2 sat went down to 85%. Called RT Jaxon regarding O2 saturation.
[2021-04-29] MEDS: BLOOD SUGAR DIAGNOSTIC 1 EACH STRIP VI SCH ×3 (05:38→19:05)
[2021-04-29] MEDS: INSULIN REGULAR, HUMAN 300 UNIT/3 ML VIAL SQ PRN ×3 (05:39→19:05)
--- NOTE | 2021-04-29 05:45 | NUR ---
RT Jaxon came, checked patient, vent and suctioned. FiO2 titrated up to 70% c/o RT Jaxon.
[2021-04-29 05:57] LABS: HEMATOCRIT 25.5 % (31.2-41.9); MEAN CORPUSCULAR HEMOGLOBIN 29.8 uug (24.7-32.8); MEAN CORPUSCULAR VOLUME 90.7 fL (75.5-95.3); PLATELET COUNT (AUTO) 97 K/uL (179-408)
[2021-04-29 06:13] LABS: CARBON DIOXIDE 29 mmol/L (21-32); CHLORIDE 95 mmol/L (98-107); CREATININE 2.1 mg/dL (0.6-1.3); GLUCOSE 217 mg/dL (74-106); MAGNESIUM 2.6 mg/dL (1.8-2.4); PHOSPHOROUS 5.7 mg/dL (2.5-4.9); POTASSIUM 4.6 mmol/L (3.5-5.1); UREA NITROGEN, BLOOD 79 mg/dL (7-18)
--- NOTE | 2021-04-29 06:20 | NUR ---
Seen and examined by Dr. Epstein, report given, with new orders.
--- NOTE | 2021-04-29 06:40 | NUR ---
Supervisor Publications Zeina made aware of patient's hemodialysis today.
--- NOTE | 2021-04-29 07:04 | NUR ---
Left patient sedated; on COVID isolation; no signs of pain nor distress noted. ET 7.5, 23 LL with the vent settings of: AC 24, TV 400, PEEP 10, FiO2 70, O2 sat= 96%; SR on the monitor, HR= 67, BP= 144/42, NG tube with TF Glucerna 1.2 @55mls/hr x 22 hours, off on [id number]. LUCIO PICC line with the following drips: Norcuron 0.8mcg/kg/min, Fentanyl @ 195 mcg/hr, Versed @ 7mg/hr. Rocha catheter draining well to gravity with minimal output. Flexiseal intact. Endorsed to RN for continuity of care.
[2021-04-29] MEDS: NUTRISOURCE FIBER 4 GM PACKET GT SCH ×2 (08:26→17:21)
[2021-04-29] MEDS: CEFEPIME HCL 2 G in IV DEXTROSE 5% 100 ML IV SCH ×2 (08:27→21:32)
[2021-04-29] MEDS: PROTEIN SUPPLEMENT (PROSTAT) 30 ML LIQUID NG SCH ×2 (08:27→21:32)
[2021-04-29] MEDS: Z GUARD REMEDY PASTE 57 GM TUBE TOP SCH ×2 (08:29→21:33)
[2021-04-29] MEDS: ASCORBIC ACID 500 MG TABLET NG SCH (08:31)
[2021-04-29] MEDS: PANTOPRAZOLE ORAL SUSPENSION 40 MG SUSPDR.PKT NG SCH (08:31)
[2021-04-29] MEDS: CHOLECALCIFEROL 1,000 UNIT TABLET NG SCH (08:31)
[2021-04-29] MEDS: INSULIN GLARGINE,HUM 300 UNITS/3 ML CARTRIDGE SQ SCH ×2 (08:49→21:37)
[2021-04-29 08:59] LABS: ABG BASE EXCESS -1.7 mmol/L; ABG HCO3 25.1 mmol/L; ABG PH 7.293 (7.350-7.450); ABG PO2 55.2 mmHg (75.0-100.0); ABG SITE LEFT RADIAL; ABG TOTAL HEMOGLOBIN 9.4 G/dL (12.0-16.0); COHb 0.9 % (0.5-1.5); MetHb 0.1 % (0.0-1.5); O2Hb 88.3 % (94.0-97.0); VENT MODE VENT - A/C; VT, ABG 400 mL
[2021-04-29] MEDS: HEPARIN SODIUM,PORCINE 5,000 UNITS/ML VIAL SQ SCH ×2 (09:01→21:33)
[2021-04-29] MEDS: MIDAZOLAM HCL IV PRN ×2 (09:55→20:34)
--- NOTE | 2021-04-29 12:30 | NUR ---
pt started HD, will continue to monitor,
--- NOTE | 2021-04-29 16:30 | NUR ---
PT TOLERATED HD WELL, 2.5L OUT
[2021-04-30] VITALS (47 sets, daily range): BP systolic 50–155; BP diastolic 26–84
[2021-04-30] MEDS: BLOOD SUGAR DIAGNOSTIC 1 EACH STRIP VI SCH ×4 (01:23→18:51)
[2021-04-30] MEDS: INSULIN REGULAR, HUMAN 300 UNIT/3 ML VIAL SQ PRN ×4 (01:25→18:50)
[2021-04-30] MEDS: DEXTROSE 5% IV PRN ×7 (04:06→20:39)
[2021-04-30] MEDS: MIDAZOLAM HCL IV PRN ×3 (04:06→20:39)
[2021-04-30 05:23] LABS: HEMATOCRIT 26.3 % (31.2-41.9); MEAN CORPUSCULAR HEMOGLOBIN 29.7 uug (24.7-32.8); MEAN CORPUSCULAR VOLUME 90.4 fL (75.5-95.3); PLATELET COUNT (AUTO) 102 K/uL (179-408)
[2021-04-30 05:47] LABS: ALANINE AMINOTRANSFERASE 144 U/L (14-59); ALKALINE PHOSPHATASE 151 U/L (50-136); ASPARTATE AMINOTRANSFERASE 90 U/L (15-37); BILIRUBIN,DIRECT < 0.1 mg/dL (0.0-0.2); BILIRUBIN,TOTAL 0.3 mg/dL (0.2-1.0); CARBON DIOXIDE 30 mmol/L (21-32); CHLORIDE 92 mmol/L (98-107); CREATININE 1.9 mg/dL (0.6-1.3); FERRITIN 782 ng/mL (8-252); GLUCOSE 158 mg/dL (74-106); LACTATE DEHYDROGENASE 436 U/L (81-234); MAGNESIUM 2.4 mg/dL (1.8-2.4); PHOSPHOROUS 5.2 mg/dL (2.5-4.9); POTASSIUM 4.7 mmol/L (3.5-5.1); UREA NITROGEN, BLOOD 67 mg/dL (7-18)
[2021-04-30 05:53] LABS: ABG BASE EXCESS -5.3 mmol/L; ABG HCO3 22.5 mmol/L; ABG PH 7.222 (7.350-7.450); ABG PO2 80.2 mmHg (75.0-100.0); ABG SITE LEFT RADIAL; COHb 0.7 % (0.5-1.5); MetHb 0.3 % (0.0-1.5); O2Hb 94.1 % (94.0-97.0); VENT MODE VENT - A/C; VT, ABG 400 mL
[2021-04-30] MEDS: VECURONIUM BROMIDE IV PRN ×2 (05:53→09:01)
[2021-04-30] MEDS: HYDROCORTISONE SOD SUCCINATE 100 MG/2 ML VIAL IV SCH ×3 (06:18→21:27)
[2021-04-30] MEDS: FENTANYL CITRATE IV PRN ×2 (06:42→20:37)
[2021-04-30] MEDS ORDERED: AMIODARONE HCL 150 MG/3 ML VIAL IV ONE (07:12)
[2021-04-30] MEDS ORDERED: AMIODARONE HCL IV 150 MG in IV DEXTROSE 5% 100 ML IV ONE (07:30)
[2021-04-30] MEDS: PROTEIN SUPPLEMENT (PROSTAT) 30 ML LIQUID NG SCH ×2 (08:00→21:23)
[2021-04-30] MEDS: CHOLECALCIFEROL 1,000 UNIT TABLET NG SCH (08:00)
[2021-04-30] MEDS: ASCORBIC ACID 500 MG TABLET NG SCH (08:00)
[2021-04-30] MEDS: Z GUARD REMEDY PASTE 57 GM TUBE TOP SCH ×2 (08:00→21:24)
[2021-04-30] MEDS: PANTOPRAZOLE ORAL SUSPENSION 40 MG SUSPDR.PKT NG SCH (08:00)
--- NOTE | 2021-04-30 08:00 | NUR ---
pt started on amio drip, pt uncontrolled afib, pt rectal temp 94, warming measures taken will continue to monitor.
[2021-04-30] MEDS: HEPARIN SODIUM,PORCINE 5,000 UNITS/ML VIAL SQ SCH ×2 (08:01→21:22)
[2021-04-30] MEDS: INSULIN GLARGINE,HUM 300 UNITS/3 ML CARTRIDGE SQ SCH ×2 (08:03→21:18)
[2021-04-30] MEDS: NUTRISOURCE FIBER 4 GM PACKET GT SCH ×2 (08:04→18:29)
[2021-04-30 08:06] LABS: HEPATITIS Be ANTIGEN Negative (Negative)
[2021-04-30] MEDS: AMIODARONE HCL IV 450 MG in IV DEXTROSE 5% 250 ML IV PRN ×2 (08:24→16:38)
--- NOTE | 2021-04-30 08:48 | NUR ---
pt started HD, will continue to monitor
[2021-04-30] MEDS: ALBUMIN HUMAN 25% 50 ML IV PRN (09:45)
[2021-04-30] MEDS ORDERED: PHENYLEPHRINE IV 50 MG in IV NORMAL SALINE 245 ML IV PRN (11:15)
[2021-04-30] MEDS: IV NORMAL SALINE 250 ML IV PRN (11:34)
--- NOTE | 2021-04-30 22:50 | NUR ---
Pt is on a Rizo ventilator on settings of A/C 24, VT 400, PEEP +10 and FIO2-60%. No resp. distress noted. BVM is at bedside. 7.5 ETT is patent and secure at approx. 23cm RIA. Pt to be monitored throughout the shift and PRN SX. Rizo alarm parameters have been checked and remain audible.
[2021-05-01] VITALS (23 sets, daily range): BP systolic 83–147; BP diastolic 41–74
[2021-05-01] MEDS: BLOOD SUGAR DIAGNOSTIC 1 EACH STRIP VI SCH ×4 (00:20→18:54)
[2021-05-01] MEDS: INSULIN REGULAR, HUMAN 300 UNIT/3 ML VIAL SQ PRN ×3 (00:21→18:54)
[2021-05-01 01:15] LABS: ABG BASE EXCESS -3.7 mmol/L; ABG HCO3 23.3 mmol/L; ABG PCO2 51.8 mmHg (35.0-45.0); ABG PH 7.271 (7.350-7.450); ABG PO2 41.4 mmHg (75.0-100.0); ABG SITE LEFT BRACHIAL; ABG TOTAL HEMOGLOBIN 9.7 G/dL (12.0-16.0); COHb 1.1 % (0.5-1.5); MetHb 0.3 % (0.0-1.5); O2Hb 77.6 % (94.0-97.0); VENT MODE VENT - A/C; VT, ABG 400 mL
--- NOTE | 2021-05-01 01:25 | NUR ---
Per ABG results FIO2 to 100%. RN MONICA aware and notified. No resp. distress noted.
--- NOTE | 2021-05-01 01:30 | NUR ---
This shift no response using TOF; weaned off Norcuron & Versed. Notified Violet GUAMAN N.P. ABG results reported; increased FiO2 100%.
[2021-05-01 05:29] LABS: HEMATOCRIT 23.5 % (31.2-41.9); MEAN CORPUSCULAR HEMOGLOBIN 29.7 uug (24.7-32.8); PLATELET COUNT (AUTO) 104 K/uL (179-408)
[2021-05-01 05:43] LABS: CARBON DIOXIDE 28 mmol/L (21-32); CHLORIDE 91 mmol/L (98-107); CREATININE 1.8 mg/dL (0.6-1.3); GLUCOSE 159 mg/dL (74-106); MAGNESIUM 2.3 mg/dL (1.8-2.4); POTASSIUM 4.9 mmol/L (3.5-5.1); UREA NITROGEN, BLOOD 64 mg/dL (7-18)
[2021-05-01 05:54] LABS: ABG BASE EXCESS -2.9 mmol/L; ABG HCO3 24.2 mmol/L; ABG PCO2 54.2 mmHg (35.0-45.0); ABG PH 7.268 (7.350-7.450); ABG PO2 121.2 mmHg (75.0-100.0); ABG SITE LEFT RADIAL; ABG TOTAL HEMOGLOBIN 9.4 G/dL (12.0-16.0); COHb 0.7 % (0.5-1.5); MetHb 0.3 % (0.0-1.5); O2Hb 97.5 % (94.0-97.0); VENT MODE VENT - A/C; VT, ABG 400 mL
[2021-05-01] MEDS: HYDROCORTISONE SOD SUCCINATE 100 MG/2 ML VIAL IV SCH ×3 (06:13→21:10)
[2021-05-01] MEDS: AMIODARONE HCL IV 450 MG in IV DEXTROSE 5% 250 ML IV PRN ×2 (06:36→19:52)
[2021-05-01 07:02] LABS: BAND % (MANUAL) 10 % (0-10); BASOPHILS % (MANUAL) 29 % (0-2); BLASTS, MANUAL % 5 % (0-0); EOSINOPHILS % (MANUAL) 2 % (0-8); LYMPHOCYTES % (MANUAL) 2 % (20-40); METAMYELOCYTES % 1 % (0-1); MONOCYTES % (MANUAL) 1 % (2-10); NEUTROPHILS % (MANUAL) 50 % (42-75)
[2021-05-01] MEDS: FENTANYL CITRATE IV PRN ×2 (08:47→18:41)
[2021-05-01] MEDS: DEXTROSE 5% IV PRN (08:47)
[2021-05-01] MEDS: PANTOPRAZOLE ORAL SUSPENSION 40 MG SUSPDR.PKT NG SCH (09:04)
[2021-05-01] MEDS: NUTRISOURCE FIBER 4 GM PACKET GT SCH ×2 (09:04→17:29)
[2021-05-01] MEDS: PROTEIN SUPPLEMENT (PROSTAT) 30 ML LIQUID NG SCH ×2 (09:04→21:08)
[2021-05-01] MEDS: CHOLECALCIFEROL 1,000 UNIT TABLET NG SCH (09:05)
[2021-05-01] MEDS: HEPARIN SODIUM,PORCINE 5,000 UNITS/ML VIAL SQ SCH ×2 (09:07→21:09)
[2021-05-01] MEDS: Z GUARD REMEDY PASTE 57 GM TUBE TOP SCH ×2 (09:08→21:10)
[2021-05-01] MEDS: ASCORBIC ACID 500 MG TABLET NG SCH (09:08)
[2021-05-01] MEDS: INSULIN GLARGINE,HUM 300 UNITS/3 ML CARTRIDGE SQ SCH ×2 (09:20→21:09)
[2021-05-01] MEDS ORDERED: MIDAZOLAM HCL 50 MG in IV NORMAL SALINE 40 ML IV PRN (16:00)
[2021-05-01] MEDS ORDERED: VECURONIUM BROMIDE 50 MG in IV NORMAL SALINE 50 ML IV PRN (16:15)
[2021-05-01] MEDS ORDERED: FENTANYL CITRATE/PF 1,000 MCG in IV NORMAL SALINE 80 ML IV PRN (16:30)
[2021-05-01] MEDS: NORMAL SALINE IV PRN (18:41)
[2021-05-02] VITALS (35 sets, daily range): BP systolic 78–147; BP diastolic 29–77
[2021-05-02] MEDS: BLOOD SUGAR DIAGNOSTIC 1 EACH STRIP VI SCH ×5 (00:05→23:26)
[2021-05-02] MEDS: INSULIN REGULAR, HUMAN 300 UNIT/3 ML VIAL SQ PRN ×3 (00:07→12:08)
[2021-05-02] MEDS: FENTANYL CITRATE IV PRN ×2 (00:26→07:48)
[2021-05-02] MEDS: NORMAL SALINE IV PRN ×2 (00:26→07:48)
[2021-05-02 05:12] LABS: HEMATOCRIT 24.8 % (31.2-41.9); MEAN CORPUSCULAR HEMOGLOBIN 29.8 uug (24.7-32.8); MEAN CORPUSCULAR VOLUME 91.6 fL (75.5-95.3); PLATELET COUNT (AUTO) 146 K/uL (179-408)
[2021-05-02] MEDS: HYDROCORTISONE SOD SUCCINATE 100 MG/2 ML VIAL IV SCH ×3 (05:48→21:35)
[2021-05-02 05:51] LABS: ABG BASE EXCESS -6.4 mmol/L; ABG HCO3 22.4 mmol/L; ABG PCO2 62.7 mmHg (35.0-45.0); ABG PO2 50.2 mmHg (75.0-100.0); ABG SITE LEFT BRACHIAL; ABG TOTAL HEMOGLOBIN 9.5 G/dL (12.0-16.0); COHb 0.8 % (0.5-1.5); MetHb 0.3 % (0.0-1.5); O2Hb 81.2 % (94.0-97.0); VENT MODE VENT - A/C; VT, ABG 400 mL
--- NOTE | 2021-05-02 06:00 | NUR ---
Per ABG results FIO2 to 100%. RN MONICA aware and notified. No resp. distress noted.
[2021-05-02 06:25] LABS: CARBON DIOXIDE 27 mmol/L (21-32); CHLORIDE 89 mmol/L (98-107); CREATININE 2.3 mg/dL (0.6-1.3); GLUCOSE 172 mg/dL (74-106); MAGNESIUM 2.4 mg/dL (1.8-2.4); PHOSPHOROUS 6.5 mg/dL (2.5-4.9); POTASSIUM 5.5 mmol/L (3.5-5.1)
[2021-05-02 06:26] LABS: UREA NITROGEN, BLOOD 83 mg/dL (7-18)
--- NOTE | 2021-05-02 07:10 | NUR ---
Received pt. on ventilator A/C 24, FIO2 80% Tv. 400 Peep +10. ETT 7.5 LL 24. saturation above 92% no tachypnea. Hemodynamically stable pt. on sinus rhythm with sbp wihin normal limits no vasopressors needed it. Neuro-honeycutt pt with no gag or cough reflex fentanyl running at 150 will titrate for neuro response. NG tube with feeding on hold due to residual of 200 this morning. lopez to gravity. Will continue with care plan.
--- NOTE | 2021-05-02 07:40 | NUR ---
Cardiology services Dr. Cervantes in to follow up on pt. report given orders to stop amiodarone drip once pt. receives the po dose.
[2021-05-02 08:01] LABS: BAND % (MANUAL) 11 % (0-10); LYMPHOCYTES % (MANUAL) 4 % (20-40); METAMYELOCYTES % 1 % (0-1); MONOCYTES % (MANUAL) 1 % (2-10); NEUTROPHILS % (MANUAL) 83 % (42-75)
--- NOTE | 2021-05-02 08:02 | NUR ---
Pulmonary services. Dr. Vdial in the unit to follow up on pt. report given see order hx.
[2021-05-02] MEDS: ASCORBIC ACID 500 MG TABLET NG SCH (08:51)
[2021-05-02] MEDS: CHOLECALCIFEROL 1,000 UNIT TABLET NG SCH (08:52)
[2021-05-02] MEDS: AMIODARONE HCL 200 MG TABLET NG SCH ×2 (08:52→20:29)
[2021-05-02] MEDS: PANTOPRAZOLE ORAL SUSPENSION 40 MG SUSPDR.PKT NG SCH (08:52)
[2021-05-02] MEDS: HEPARIN SODIUM,PORCINE 5,000 UNITS/ML VIAL SQ SCH ×2 (08:58→20:27)
[2021-05-02] MEDS ORDERED: ALBUMIN HUMAN 25% 50 ML IV PRN (09:00)
[2021-05-02] MEDS: INSULIN GLARGINE,HUM 300 UNITS/3 ML CARTRIDGE SQ SCH ×2 (09:02→20:26)
[2021-05-02] MEDS: Z GUARD REMEDY PASTE 57 GM TUBE TOP SCH ×2 (09:03→20:21)
[2021-05-02] MEDS: PROTEIN SUPPLEMENT (PROSTAT) 30 ML LIQUID NG SCH ×2 (09:05→20:21)
[2021-05-02] MEDS: NUTRISOURCE FIBER 4 GM PACKET GT SCH ×2 (09:05→17:14)
[2021-05-02] MEDS ORDERED: MEROPENEM 0.5 G in IV NORMAL SALINE 50 ML IV ONE (09:15)
--- NOTE | 2021-05-02 13:15 | NUR ---
Patient undergoing HD at this time tolerating it well.
[2021-05-02] MEDS: GLUCERNA 1.2 1000ML LIQUID NG PRN (15:49)
--- NOTE | 2021-05-02 16:04 | NUR ---
HD completed and report of 2L out pt. with no need of vasopressor but received 100mls albumin during procedure.
[2021-05-02] MEDS: ALBUMIN HUMAN 25% 50 ML IV PRN (16:06)
--- NOTE | 2021-05-02 18:48 | NUR ---
Left pt. on ventilator A/C 28, FIO2 80% Tv. 400 Peep +10. ETT 7.5 LL 24. saturation above 90% no tachypnea. Hemodynamically stable pt. on sinus rhythm with sbp within normal limits no vasopressors needed it, Pt tolerated dialysis with 2 Liters output. Neuro-honeycutt pt with fentanyl running at 140 unable to titrated down due to respiratory distress and desaturation noted during PM care pt. NG tube with feeding resumed toward the end of the shift and down to 40cc/hr pt. tolerating it poorly. lopez to gravity. Will continue with care plan.
--- NOTE | 2021-05-02 19:30 | NUR ---
Received patient on COVID-19 isolation, orally intubated and to mechanical ventilator with settings as follows: FIO2=80%, EE=879as, PEEP=10 and AC=28. O2 saturations above 93%. Sedated on Fentanyl drip at 140 mcg/H via LUCIO PICC line. library monitor: SR rate 70's. S/P dialysis this pm with 2 L out. NGT feedings Glucerna at 40 ml/H; residuals=10ml. Flexi seal in place with liquid brown foul smelling stools. Assessment completed. Addendum: 05/03/21 at 0003 by GENEVA HERNANDEZ RN Amended: Links added. Addendum: 05/03/21 at 0006 by GENEVA HERNANDEZ RN Amended: Links added. Addendum: 05/03/21 at 0023 by GENEVA HERNANDEZ RN Amended: Links added.
--- NOTE | 2021-05-02 20:30 | NUR ---
Turned and repositioned with RT's help. Desaturates to mid 80's during care. FIO2 up to 100% x 2 minutes; O2 saturations improved. SBPs in the 80's; will monitor for now. Addendum: 05/03/21 at 0006 by GENEVA HERNANDEZ RN Amended: Links added. Addendum: 05/03/21 at 0023 by GENEVA HERNANDEZ RN Amended: Links added.
[2021-05-02] MEDS: NOREPINEPHRINE BITARTRATE 8 MG in IV NORMAL SALINE 242 ML IV PRN (21:33)
--- NOTE | 2021-05-02 21:33 | NUR ---
Levophed drip started; patient remains hypotensive. Will continue to monitor closely. Addendum: 05/03/21 at 0023 by GENEVA HERNANDEZ RN Amended: Links added.
--- NOTE | 2021-05-02 22:30 | NUR ---
BPs improved with Levophed at 0.08 mcg/kg/min.
[2021-05-02] MEDS: IV NORMAL SALINE 250 ML IV PRN (23:31)
[2021-05-03] VITALS (93 sets, daily range): BP systolic 82–145; BP diastolic 19–88
[2021-05-03] MEDS: NORMAL SALINE IV PRN ×2 (01:30→09:17)
[2021-05-03] MEDS: FENTANYL CITRATE IV PRN ×2 (01:30→09:17)
[2021-05-03 05:02] LABS: HEMATOCRIT 23.8 % (31.2-41.9); MEAN CORPUSCULAR HEMOGLOBIN 29.6 uug (24.7-32.8); MEAN CORPUSCULAR VOLUME 91.9 fL (75.5-95.3); PLATELET COUNT (AUTO) 153 K/uL (179-408)
[2021-05-03 05:06] LABS: CARBON DIOXIDE 28 mmol/L (21-32); CHLORIDE 93 mmol/L (98-107); CREATININE 1.6 mg/dL (0.6-1.3); GLUCOSE 87 mg/dL (74-106); MAGNESIUM 2.4 mg/dL (1.8-2.4); PHOSPHOROUS 5.2 mg/dL (2.5-4.9); POTASSIUM 4.8 mmol/L (3.5-5.1); UREA NITROGEN, BLOOD 57 mg/dL (7-18)
[2021-05-03] MEDS: HYDROCORTISONE SOD SUCCINATE 100 MG/2 ML VIAL IV SCH ×3 (05:23→22:13)
[2021-05-03] MEDS: BLOOD SUGAR DIAGNOSTIC 1 EACH STRIP VI SCH ×3 (05:24→17:58)
[2021-05-03 06:28] LABS: ABG BASE EXCESS -5.8 mmol/L; ABG HCO3 23.3 mmol/L; ABG PCO2 68.4 mmHg (35.0-45.0); ABG PO2 66.3 mmHg (75.0-100.0); ABG SITE LEFT BRACHIAL; ABG TOTAL HEMOGLOBIN 8.9 G/dL (12.0-16.0); COHb 0.3 % (0.5-1.5); MetHb 0.6 % (0.0-1.5); O2Hb 90.3 % (94.0-97.0); VENT MODE VENT - A/C; VT, ABG 400 mL
[2021-05-03 06:29] LABS: BAND % (MANUAL) 8 % (0-10); LYMPHOCYTES % (MANUAL) 4 % (20-40); MONOCYTES % (MANUAL) 3 % (2-10); NEUTROPHILS % (MANUAL) 85 % (42-75)
--- NOTE | 2021-05-03 06:36 | NUR ---
Remains on Levophed drip at 0.1 mcg/kg/min to keep SBP above 90. lunchroom monitor SR rate 70's-80's. Fentanyl drip maintained at 140 mcg/H. Still desaturates to low and mid 80's during turning. Anuric; for HD today. Maintained on CoVID 19 isolation.
[2021-05-03 07:07] LABS: HEPATITIS B SURFACE AG Negative (Negative)
--- NOTE | 2021-05-03 07:20 | NUR ---
ABG results called to Dr. Vidal; no orders. O2 saturations 94-95%.
[2021-05-03] MEDS: NUTRISOURCE FIBER 4 GM PACKET GT SCH ×2 (09:06→17:57)
[2021-05-03] MEDS: Z GUARD REMEDY PASTE 57 GM TUBE TOP SCH ×2 (09:07→21:08)
[2021-05-03] MEDS: PROTEIN SUPPLEMENT (PROSTAT) 30 ML LIQUID NG SCH ×2 (09:07→21:07)
[2021-05-03] MEDS: MEROPENEM 500 MG in IV NORMAL SALINE 50 ML IV SCH (09:08)
[2021-05-03] MEDS: ASCORBIC ACID 500 MG TABLET NG SCH (09:08)
[2021-05-03] MEDS: PANTOPRAZOLE ORAL SUSPENSION 40 MG SUSPDR.PKT NG SCH (09:08)
[2021-05-03] MEDS: CHOLECALCIFEROL 1,000 UNIT TABLET NG SCH (09:09)
[2021-05-03] MEDS: INSULIN GLARGINE,HUM 300 UNITS/3 ML CARTRIDGE SQ SCH ×2 (09:10→21:00)
[2021-05-03] MEDS: HEPARIN SODIUM,PORCINE 5,000 UNITS/ML VIAL SQ SCH ×2 (09:10→21:09)
[2021-05-03] MEDS: AMIODARONE HCL 200 MG TABLET NG SCH ×2 (09:12→21:07)
--- NOTE | 2021-05-03 10:00 | NUR ---
Assumed care for patient. Patient is in sinus rhythm, on ett to vent, Levophed for BP support. sedated on fentanyl 120 mcg/hr. Patient has NG tube, checked for placement with minimal residual, Rectal tube in place. Rocha catheter is empty, patient to be started on hemodialysis at this time. Alarms checked for accuracy, bed in low position, side rails upx2, turned patient.
[2021-05-03] MEDS: ALBUMIN HUMAN 25% 50 ML IV PRN (11:40)
[2021-05-03] MEDS: NOREPINEPHRINE BITARTRATE 8 MG in IV NORMAL SALINE 242 ML IV PRN ×2 (12:41→21:10)
--- NOTE | 2021-05-03 16:13 | NUR ---
Increase FiO2 to 85%. Patient was desaturating below 88%.
--- NOTE | 2021-05-03 19:27 | NUR ---
Patient continues to be intubated and sedated on Lala vent, sinus rhythm on the monitor, on levophed 0.1mcg/kg/min, patient tolerating tube feeding at 40cc/hr, no urine output, rectal tube in place. Report to restaurant shift leader nurse given.
--- NOTE | 2021-05-03 19:30 | NUR ---
Report received. Patient on COVID isolation, orally intubated and to ventilator with same settings. O2 sat 88-92%. On continuous Fentanyl and Levophed drips via LUCIO PICC line. No responses to pain, extremities flaccid. Turned and repositioned. With periods of desaturation during turning and care. NGT feedings tolerated well at 40 ml/H. Will increase rate as tolerated to goal of 65 ml/H. Flexi seal intact; with liquid foul smelling brown stools. Assessment done; see flow sheet for complete data. Addendum: 05/03/21 at 0 by GENEVA HERNANDEZ RN Amended: Links added. Addendum: 05/03/21 at 2240 by GENEVA HERNANDEZ RN Amended: Links added.
--- NOTE | 2021-05-03 21:20 | NUR ---
Spoke to Dr. Romano re: Lantus dose. Patient's accucheck=77. MD ordered to hold dose for tonight.
[2021-05-03] MEDS: IV NORMAL SALINE 250 ML IV PRN (21:43)
[2021-05-03] MEDS: GLUCERNA 1.2 1000ML LIQUID NG PRN (22:57)
--- NOTE | 2021-05-03 23:44 | NUR ---
PATIENT ON CONT READ VENT WITH 7.5 ET/TUBE IN PLACE AND SECURED WITH ANCHOR FAST , MOVE Q2 HOURS, SUCTIONED BROWNISH TINGE SECRETIONS, SUCTION ORAL CAVITY WITH DILMA IBARRA, VENT SETTINGS, A/C 28, 400ML, 80%, PEEP 10 , NO VENT CHANGES MADE . Whitley KERRP Addendum: 05/03/21 at 2346 by YESENIA SMALL RT Amended: Links added.
--- NOTE | 2021-05-03 23:45 | NUR ---
Bath given. Desaturates easily to the low 80's when turned and repositioned during care. FIO2 increased to 100% x 2 minutes; sats would improved. Addendum: 05/04/21 at 0054 by GENEVA HERNANDEZ RN Amended: Links added. Addendum: 05/04/21 at 0054 by GENEVA HERNANDEZ RN Amended: Links added. Addendum: 05/04/21 at 0054 by GENEVA TAECHARATKIJ RN Amended: Links added. Addendum: 05/04/21 at 0054 by GENEVA HERNANDEZ RN Amended: Links added. Addendum: 05/04/21 at 0055 by GENEVA HERNANDEZ RN Amended: Links added. Addendum: 05/04/21 at 0055 by GENEVA HERNANDEZ RN Amended: Links added. Addendum: 05/04/21 at 0055 by GENEVA HERNANDEZ RN Amended: Links added. Addendum: 05/04/21 at 0055 by GENEVA HERNANDEZ RN Amended: Links added. Addendum: 05/04/21 at 0058 by GENEVA HERNANDEZ RN Amended: Links added. Addendum: 05/04/21 at 0058 by GENEVA HERNANDEZ RN Amended: Links added. Addendum: 05/04/21 at 0058 by GENEVA HERNANDEZ RN Amended: Links added.
[2021-05-04] VITALS (96 sets, daily range): BP systolic 83–147; BP diastolic 14–76
--- NOTE | 2021-05-04 | NUR ---
Anuric; Rocha catheter changed to F#18 without problems. Levophed drip titrated down; BPs above 90 systole.
[2021-05-04] MEDS: BLOOD SUGAR DIAGNOSTIC 1 EACH STRIP VI SCH ×5 (00:02→23:05)
--- NOTE | 2021-05-04 04:00 | NUR ---
Still desaturates during turning. FIO2 titrated accordingly to keep adequate saturation. Remains on Fentanyl drip at 120 mcg/H. Addendum: 05/04/21 at 0707 by GENEVA HERNANDEZ RN Amended: Links added.
--- NOTE | 2021-05-04 04:00 | NUR ---
Still desaturates during turning. FIO2 titrated accordingly to keep adequate saturation. Addendum: 05/04/21 at 0707 by GENEVA HERNANDEZ RN Amended: Links added. Addendum: 05/04/21 at 0708 by GENEVA HERNANDEZ RN double charting.
[2021-05-04 05:11] LABS: MEAN CORPUSCULAR HEMOGLOBIN 29.8 uug (24.7-32.8)
[2021-05-04 05:13] LABS: MEAN CORPUSCULAR VOLUME 92.4 fL (75.5-95.3); PLATELET COUNT (AUTO) 119 K/uL (179-408)
[2021-05-04 05:29] LABS: CARBON DIOXIDE 27 mmol/L (21-32); CHLORIDE 98 mmol/L (98-107); CREATININE 1.4 mg/dL (0.6-1.3); GLUCOSE 98 mg/dL (74-106); LIPASE 151 U/L (73-393); MAGNESIUM 2.4 mg/dL (1.8-2.4); POTASSIUM 4.2 mmol/L (3.5-5.1); UREA NITROGEN, BLOOD 45 mg/dL (7-18)
[2021-05-04 05:44] LABS: HEMATOCRIT 20.4 % (31.2-41.9)
[2021-05-04] MEDS: HYDROCORTISONE SOD SUCCINATE 100 MG/2 ML VIAL IV SCH ×3 (05:53→21:27)
--- NOTE | 2021-05-04 06:15 | NUR ---
Results of CBC called to Dr. Krys Moffett; orders received. Message left to patient's daughter Fe # [phone] to obtain transfusion consent.
[2021-05-04] MEDS: NORMAL SALINE IV PRN (06:16)
[2021-05-04] MEDS: FENTANYL CITRATE IV PRN (06:16)
--- NOTE | 2021-05-04 06:56 | NUR ---
Call placed to patient's son and daughter re: blood transfusion and consent is needed; awaiting call back.
[2021-05-04 06:59] LABS: BAND % (MANUAL) 6 % (0-10); LYMPHOCYTES % (MANUAL) 1 % (20-40); METAMYELOCYTES % 1 % (0-1); MONOCYTES % (MANUAL) 2 % (2-10); MYELOCYTES % 1 % (0-0); NEUTROPHILS % (MANUAL) 89 % (42-75)
--- NOTE | 2021-05-04 07:00 | NUR ---
Daughter Fe called back right away. Phone consent for transfusion obtained. Patient remains on Fentanyl drip at 120 mcg/H. Vent settings: AC=28, FIO2=90%, VM=701ow and PEEP= 10; O2 sats 94-96%. Levophed drip at 0.06 mcg/kg/min; BPs monitored closely. EKG SR rate 70's-80's. Tolerating NGT feedings at 50 ml/H. Flexi seal had 100 ml liquid brown stool. Anuric. No dialysis order today.
--- NOTE | 2021-05-04 07:10 | NUR ---
Patient received on mechanical ventilator 7.5 ETT 23LL on A/C28, tv 400 and 80% FIO2. with saturation 92%. Neuro-honeycutt adequately sedated. NGT with feeding to be resumed. Rocha to gravity. IV line patent and awaiting for 1 unit of PRBC's to be administered. Will continue to monitor.
[2021-05-04] MEDS: NUTRISOURCE FIBER 4 GM PACKET GT SCH ×2 (08:38→17:09)
[2021-05-04] MEDS: PROTEIN SUPPLEMENT (PROSTAT) 30 ML LIQUID NG SCH ×4 (08:40→17:10)
[2021-05-04] MEDS: CHOLECALCIFEROL 1,000 UNIT TABLET NG SCH (08:42)
[2021-05-04] MEDS: AMIODARONE HCL 200 MG TABLET NG SCH ×2 (08:42→20:27)
[2021-05-04] MEDS: PANTOPRAZOLE ORAL SUSPENSION 40 MG SUSPDR.PKT NG SCH (08:43)
[2021-05-04] MEDS: ASCORBIC ACID 500 MG TABLET NG SCH (08:49)
[2021-05-04] MEDS: HEPARIN SODIUM,PORCINE 5,000 UNITS/ML VIAL SQ SCH ×3 (08:54→20:31)
[2021-05-04] MEDS: INSULIN GLARGINE,HUM 300 UNITS/3 ML CARTRIDGE SQ SCH ×2 (08:56→20:25)
[2021-05-04] MEDS: Z GUARD REMEDY PASTE 57 GM TUBE TOP SCH ×2 (08:57→20:20)
[2021-05-04] MEDS: MEROPENEM 500 MG in IV NORMAL SALINE 50 ML IV SCH (09:00)
--- NOTE | 2021-05-04 09:00 | NUR ---
patient seen and examine by network systems integrator Dr. Vidal report given orders received and implemented.
--- NOTE | 2021-05-04 10:00 | NUR ---
Patient seen by attending N.P. report given, orders to continue with care plan received.
[2021-05-04] MEDS: NOREPINEPHRINE BITARTRATE 8 MG in IV NORMAL SALINE 242 ML IV PRN ×2 (12:55→22:26)
[2021-05-04] MEDS: NEPRO 1000 ML GT PRN (17:12)
[2021-05-04] MEDS: INSULIN REGULAR, HUMAN 300 UNIT/3 ML VIAL SQ PRN ×2 (17:18→23:06)
--- NOTE | 2021-05-04 19:18 | NUR ---
Left pt. on mechanical ventilator 7.5 ETT 23LL on A/C 28, tv 400 and 80% FIO2. with saturation 92%. poorly tolerating repositioning. Neuro-honeycutt adequately sedated respiratory distress and desaturation noted with moving only, other-honeycutt pt. with no tachypnea. Hemodynamically on sinus rhythm and sbp above 90's. NGT change to nepro running at 45cc/hr with no residuals. Rocha to gravity with zero output. IV line patent. Will continue to monitor.
--- NOTE | 2021-05-04 19:30 | NUR ---
Report received. Patient on COVID isolation, orally intubated and to mechanical ventilator with settings YQ=210cc, FIO2=80%, PEEP=10 and AC=28. O2 sats 94-95%. On continuous Fentanyl and Levophed drips via LUCIO PICC line. No responses to pain, extremities flaccid. Turned and repositioned. With periods of desaturation during turning and care. NGT feedings Nephro tolerated at 45 ml/H; residuals 20ml. Assessment completed. Addendum: 05/04/21 at 2244 by GENEVA HERNANDEZ RN Amended: Links added. Addendum: 05/04/21 at 2245 by GENEVA HERNANDEZ RN Amended: Links added. Addendum: 05/04/21 at 5 by GENEVA HERNANDEZ RN Amended: Links added. Addendum: 05/04/21 at 2245 by GENEVA HERNANDEZ RN Amended: Links added. Addendum: 05/04/21 at 2245 by GENEVA HERNANDEZ RN Amended: Links added. Addendum: 05/04/21 at 2250 by GENEVA HERNANDEZ RN Amended: Links added. Addendum: 05/04/21 at 2250 by GENEVA HERNANDEZ RN Amended: Links added. Addendum: 05/04/21 at 2251 by GENEVA HERNANDEZ RN Amended: Links added. Addendum: 05/04/21 at 2251 by GENEVA HERNANDEZ RN Amended: Links added.
--- NOTE | 2021-05-04 19:45 | NUR ---
Pt is on a Rizo ventilator on settings of A/C 28, VT 400, PEEP +10 and FIO2-80%. No resp. distress noted. BVM is at bedside. 7.5 ETT is patent and secure at approx. 23cm RIA. Pt to be monitored throughout the shift and PRN SX. Rizo alarm parameters have been checked and remain audible.
[2021-05-04] MEDS: IV NORMAL SALINE 250 ML IV PRN (20:35)
--- NOTE | 2021-05-04 23:00 | NUR ---
O2 sats only 91%. Plan of care discussed with RT; FIO2 increased to 90%. Will monitor.
[2021-05-05] VITALS (44 sets, daily range): BP systolic 85–133; BP diastolic 30–72
--- NOTE | 2021-05-05 | NUR ---
Levophed drip dc'd. BPs above 100's systole.
[2021-05-05] MEDS: FENTANYL CITRATE IV PRN ×2 (02:43→22:50)
[2021-05-05] MEDS: NORMAL SALINE IV PRN ×2 (02:43→22:50)
[2021-05-05 05:09] LABS: HEMATOCRIT 25.1 % (31.2-41.9); MEAN CORPUSCULAR HEMOGLOBIN 29.9 uug (24.7-32.8); PLATELET COUNT (AUTO) 121 K/uL (179-408)
[2021-05-05 05:28] LABS: ALANINE AMINOTRANSFERASE 177 U/L (14-59); ALKALINE PHOSPHATASE 313 U/L (50-136); ASPARTATE AMINOTRANSFERASE 75 U/L (15-37); BILIRUBIN,TOTAL 0.3 mg/dL (0.2-1.0); CARBON DIOXIDE 26 mmol/L (21-32); CHLORIDE 97 mmol/L (98-107); CREATININE 1.8 mg/dL (0.6-1.3); GLUCOSE 125 mg/dL (74-106); PHOSPHOROUS 5.9 mg/dL (2.5-4.9); POTASSIUM 4.6 mmol/L (3.5-5.1); TOTAL PROTEIN, SERUM 5.7 g/dL (6.4-8.2); UREA NITROGEN, BLOOD 71 mg/dL (7-18)
[2021-05-05] MEDS: HYDROCORTISONE SOD SUCCINATE 100 MG/2 ML VIAL IV SCH ×3 (05:28→21:31)
[2021-05-05] MEDS: BLOOD SUGAR DIAGNOSTIC 1 EACH STRIP VI SCH ×3 (05:28→18:23)
[2021-05-05 05:49] LABS: MAGNESIUM 2.6 mg/dL (1.8-2.4)
[2021-05-05 05:55] LABS: ABG BASE EXCESS -5.9 mmol/L; ABG HCO3 22.2 mmol/L; ABG PCO2 57.9 mmHg (35.0-45.0); ABG PH 7.201 (7.350-7.450); ABG PO2 73.2 mmHg (75.0-100.0); ABG SITE LEFT BRACHIAL; ABG TOTAL HEMOGLOBIN 9.2 G/dL (12.0-16.0); COHb 0.6 % (0.5-1.5); MetHb 0.1 % (0.0-1.5); O2Hb 93.5 % (94.0-97.0); VENT MODE VENT - A/C; VT, ABG 400 mL
--- NOTE | 2021-05-05 06:00 | NUR ---
Condition unchanged. BPs stable; off Levophed drip since midnight. hospital monitor: SR rate 60's-70's. O2 saturations above 94%, current vent settings: AC=28, TV 400ml, FIO2=90% and PEEP=10 cm. Sedated with Fentanyl drip at 120mcg/H. via LUCIO PICC line. Still desaturates easily during turning. Anuric. Tolerating NGT feedings of Nephro at 45 ml/H x 22H; off [id number]. Addendum: 05/05/21 at 0636 by GENEVA HERNANDEZ RN Amended: Links added. Addendum: 05/05/21 at 0637 by GENEVA HERNANDEZ RN Amended: Links added.
--- NOTE | 2021-05-05 06:25 | NUR ---
Bedside HD started by Fabio SIEGEL. Addendum: 05/05/21 at 0637 by GENEVA HERNANDEZ RN Amended: Links added.
[2021-05-05] MEDS: CHOLECALCIFEROL 1,000 UNIT TABLET NG SCH (09:00)
[2021-05-05] MEDS: HEPARIN SODIUM,PORCINE 5,000 UNITS/ML VIAL SQ SCH ×2 (09:00→20:46)
[2021-05-05] MEDS: ASCORBIC ACID 500 MG TABLET NG SCH (09:45)
[2021-05-05] MEDS: AMIODARONE HCL 200 MG TABLET NG SCH ×2 (09:45→20:45)
[2021-05-05] MEDS: PANTOPRAZOLE ORAL SUSPENSION 40 MG SUSPDR.PKT NG SCH (09:45)
[2021-05-05] MEDS: Z GUARD REMEDY PASTE 57 GM TUBE TOP SCH ×2 (09:46→21:30)
[2021-05-05] MEDS: MEROPENEM 500 MG in IV NORMAL SALINE 50 ML IV SCH (09:46)
[2021-05-05] MEDS: PROTEIN SUPPLEMENT (PROSTAT) 30 ML LIQUID NG SCH ×3 (09:48→17:54)
[2021-05-05] MEDS: NUTRISOURCE FIBER 4 GM PACKET GT SCH ×2 (09:49→17:54)
[2021-05-05] MEDS: INSULIN GLARGINE,HUM 300 UNITS/3 ML CARTRIDGE SQ SCH ×2 (09:52→21:29)
[2021-05-05] MEDS: INSULIN REGULAR, HUMAN 300 UNIT/3 ML VIAL SQ PRN ×2 (12:16→18:25)
--- NOTE | 2021-05-05 19:15 | NUR ---
received patient obtunded , bilateral arms and legs flacid , no spontaneous eye opening , ngt nephro at 45 ml , placement checked and noresidual noted , perma cath rij , intact , rectal tube and lopez and picc line intact , no fever , ac 28 tv 400 p 10 fio2 90 % , fentanyl iv 120 mcg
[2021-05-05] MEDS: IV NORMAL SALINE 250 ML IV PRN (22:53)
[2021-05-06] VITALS (49 sets, daily range): BP systolic 33–161; BP diastolic 20–74
[2021-05-06] MEDS: BLOOD SUGAR DIAGNOSTIC 1 EACH STRIP VI SCH ×5 (00:02→23:44)
[2021-05-06] MEDS: INSULIN REGULAR, HUMAN 300 UNIT/3 ML VIAL SQ PRN ×4 (00:04→18:11)
[2021-05-06] MEDS: HYDROCORTISONE SOD SUCCINATE 100 MG/2 ML VIAL IV SCH ×3 (05:23→21:04)
[2021-05-06 05:25] LABS: HEMATOCRIT 25.8 % (31.2-41.9); MEAN CORPUSCULAR HEMOGLOBIN 29.8 uug (24.7-32.8); MEAN CORPUSCULAR VOLUME 91.8 fL (75.5-95.3); PLATELET COUNT (AUTO) 128 K/uL (179-408)
[2021-05-06 05:48] LABS: CARBON DIOXIDE 26 mmol/L (21-32); CHLORIDE 94 mmol/L (98-107); CREATININE 1.4 mg/dL (0.6-1.3); FERRITIN 977 ng/mL (8-252); GLUCOSE 172 mg/dL (74-106); LACTATE DEHYDROGENASE 419 U/L (81-234); MAGNESIUM 2.5 mg/dL (1.8-2.4); PHOSPHOROUS 4.3 mg/dL (2.5-4.9); POTASSIUM 3.6 mmol/L (3.5-5.1); UREA NITROGEN, BLOOD 54 mg/dL (7-18)
[2021-05-06 05:51] LABS: ABG BASE EXCESS -6.8 mmol/L; ABG HCO3 21.4 mmol/L; ABG PCO2 57.2 mmHg (35.0-45.0); ABG PH 7.191 (7.350-7.450); ABG PO2 77.1 mmHg (75.0-100.0); ABG SITE LEFT BRACHIAL; ABG TOTAL HEMOGLOBIN 9.3 G/dL (12.0-16.0); COHb 0.7 % (0.5-1.5); MetHb 0.2 % (0.0-1.5); O2Hb 93.8 % (94.0-97.0); VENT MODE VENT - A/C; VT, ABG 400 mL
--- NOTE | 2021-05-06 06:30 | NUR ---
vent settings the same , fentanyl 120 mcg , tf held as ordered x 22 hours , running at 45 ml no fever , lopez , rectal tbe intact
[2021-05-06] MEDS: MEROPENEM 500 MG in IV NORMAL SALINE 50 ML IV SCH (08:08)
[2021-05-06] MEDS: NUTRISOURCE FIBER 4 GM PACKET GT SCH ×2 (08:08→17:46)
[2021-05-06] MEDS: AMIODARONE HCL 200 MG TABLET NG SCH ×2 (08:08→20:15)
[2021-05-06] MEDS: PROTEIN SUPPLEMENT (PROSTAT) 30 ML LIQUID NG SCH ×3 (08:08→17:46)
[2021-05-06] MEDS: PANTOPRAZOLE ORAL SUSPENSION 40 MG SUSPDR.PKT NG SCH (08:09)
[2021-05-06] MEDS: ASCORBIC ACID 500 MG TABLET NG SCH (08:09)
[2021-05-06] MEDS: CHOLECALCIFEROL 1,000 UNIT TABLET NG SCH (08:09)
[2021-05-06] MEDS: INSULIN GLARGINE,HUM 300 UNITS/3 ML CARTRIDGE SQ SCH ×2 (08:26→20:22)
[2021-05-06] MEDS: Z GUARD REMEDY PASTE 57 GM TUBE TOP SCH ×2 (08:27→20:13)
[2021-05-06] MEDS: HEPARIN SODIUM,PORCINE 5,000 UNITS/ML VIAL SQ SCH ×2 (08:27→20:16)
[2021-05-06] MEDS: MIDODRINE HCL 5 MG TABLET PO SCH ×2 (13:02→17:46)
[2021-05-06] MEDS ORDERED: NOREPINEPHRINE BITARTRATE 4 MG/4 ML VIAL IV ONE (15:53)
[2021-05-06] MEDS: NOREPINEPHRINE BITARTRATE 8 MG in IV NORMAL SALINE 242 ML IV PRN (15:55)
--- NOTE | 2021-05-06 19:00 | NUR ---
Received patient sedated, responsive to painful stimuli; no signs of pain nor distress noted. ET 7.0 LL 23, with the vent settings of AC 28, TV 400, FiO2 90%, PEEP 10. SR on the monitor, HR=92 bpm; NGT TF Nephro @45mls/hr, with 200cc of gastric residual. TF placed on hold for now. MARCO A Mazariegos for HD, LUCIO PICC line with ongoing IV drips Fentanyl @60mcq/kg/min, Levophed@ 0.3mcg/kg/min. Rocha catheter draining well to gravity. Flexiseal intact. Will continue to monitor closely.
[2021-05-06] MEDS: NOREPINEPHRINE BITARTRATE 32 MG in IV NORMAL SALINE 218 ML IV PRN (21:48)
--- NOTE | 2021-05-06 22:00 | NUR ---
Rechecked gastric residual 40cc volume, restarted TF Nephro @45ml/hr. Patient tolerating TF.
[2021-05-06] MEDS: IV NORMAL SALINE 250 ML IV PRN (22:06)
[2021-05-06] MEDS ORDERED: IV NORMAL SALINE 250 ML IV SCH (22:15)
--- NOTE | 2021-05-06 23:54 | NUR ---
PATIENT ON CONT READ VENT WITH 7.5 ET/TUBE IN PLACE AND SECURED, WITH ANCHOR FAST IN PLACE, SUCTION PRN, VIJAYA CARE, VENT SETTINGS,A/C28, 400ML, PEEP10 , FIO2 @ 90% , PT WITH MOSTLY CONTROLLED VENTILATION, NO VENT CHANGES MADE, AL VENT ALARMS GOOD, PT REMAINS ON FIO2 @ 90% . Whitley SMALL RCP Addendum: 05/06/21 at 2356 by YESENIA SMALL RT Amended: Links added.
[2021-05-07] VITALS (95 sets, daily range): BP systolic 73–152; BP diastolic 18–76
[2021-05-07] MEDS: NORMAL SALINE IV PRN (00:37)
[2021-05-07] MEDS: FENTANYL CITRATE IV PRN (00:37)
[2021-05-07 05:10] LABS: HEMATOCRIT 25.2 % (31.2-41.9); MEAN CORPUSCULAR HEMOGLOBIN 29.4 uug (24.7-32.8); MEAN CORPUSCULAR VOLUME 91.7 fL (75.5-95.3); PLATELET COUNT (AUTO) 172 K/uL (179-408)
[2021-05-07 05:33] LABS: CARBON DIOXIDE 25 mmol/L (21-32); CHLORIDE 94 mmol/L (98-107); CREATININE 1.8 mg/dL (0.6-1.3); GLUCOSE 131 mg/dL (74-106); MAGNESIUM 2.7 mg/dL (1.8-2.4); PHOSPHOROUS 5.2 mg/dL (2.5-4.9); POTASSIUM 4.3 mmol/L (3.5-5.1); UREA NITROGEN, BLOOD 78 mg/dL (7-18)
[2021-05-07] MEDS: HYDROCORTISONE SOD SUCCINATE 100 MG/2 ML VIAL IV SCH ×3 (06:02→21:23)
[2021-05-07] MEDS: BLOOD SUGAR DIAGNOSTIC 1 EACH STRIP VI SCH ×4 (06:06→23:44)
[2021-05-07 06:11] LABS: ABG BASE EXCESS -5.6 mmol/L; ABG HCO3 23.6 mmol/L; ABG PH 7.152 (7.350-7.450); ABG PO2 54.8 mmHg (75.0-100.0); ABG SITE LEFT RADIAL; ABG TOTAL HEMOGLOBIN 9.5 G/dL (12.0-16.0); COHb 0.8 % (0.5-1.5); MetHb 0.3 % (0.0-1.5); O2Hb 85.4 % (94.0-97.0); VENT MODE VENT - A/C; VT, ABG 400 mL
--- NOTE | 2021-05-07 06:31 | NUR ---
Left patient sedated, responsive to painful stimuli; no signs of pain nor distress noted. ET 7.0 LL 23, with the vent settings of AC 28, TV 400, FiO2 100%, PEEP 10. SR on the monitor, HR=79 bpm; NGT TF Nephro @45mls/hr off [phone]. MARCO A Mazariegos for HD, LUCIO PICC line with ongoing IV drips Fentanyl @50mcq/kg/min, Levophed@ 0.14mcg/kg/min. Rocha catheter draining well to gravity. Flexiseal intact. Endorsed to next shift for continuity of care.
--- NOTE | 2021-05-07 06:54 | NUR ---
Seen and examined by Dr. Epstein, with no orders.
[2021-05-07] MEDS: PANTOPRAZOLE ORAL SUSPENSION 40 MG SUSPDR.PKT NG SCH (08:08)
[2021-05-07] MEDS: MIDODRINE HCL 5 MG TABLET PO SCH ×3 (08:08→17:39)
[2021-05-07] MEDS: CHOLECALCIFEROL 1,000 UNIT TABLET NG SCH (08:08)
[2021-05-07] MEDS: ASCORBIC ACID 500 MG TABLET NG SCH (08:08)
[2021-05-07] MEDS: MEROPENEM 500 MG in IV NORMAL SALINE 50 ML IV SCH (08:09)
[2021-05-07] MEDS: AMIODARONE HCL 200 MG TABLET NG SCH ×2 (08:09→20:42)
[2021-05-07] MEDS: PROTEIN SUPPLEMENT (PROSTAT) 30 ML LIQUID NG SCH ×3 (08:10→17:39)
[2021-05-07] MEDS: NUTRISOURCE FIBER 4 GM PACKET GT SCH ×2 (08:10→17:39)
[2021-05-07] MEDS: Z GUARD REMEDY PASTE 57 GM TUBE TOP SCH ×2 (08:11→20:43)
[2021-05-07] MEDS: INSULIN GLARGINE,HUM 300 UNITS/3 ML CARTRIDGE SQ SCH ×2 (08:15→20:48)
[2021-05-07] MEDS: HEPARIN SODIUM,PORCINE 5,000 UNITS/ML VIAL SQ SCH ×2 (08:15→20:42)
--- NOTE | 2021-05-07 09:07 | NUR ---
FIO2 TITRATED DOWN TO 90%. SPO2 MAINTAINING WITHIN NORMAL LIMITS
[2021-05-07] MEDS: ALBUMIN HUMAN 25% 50 ML IV PRN (10:44)
--- NOTE | 2021-05-07 11:02 | NUR ---
VENT SETTING CHANGE DONE. RATE TO 32 BPM
--- NOTE | 2021-05-07 13:52 | NUR ---
PEEP TITRATED DOWN TO 8 WITH SPO2 MAINTAINING WITHIN NORMAL RANGE.
--- NOTE | 2021-05-07 19:00 | NUR ---
Received patient on ET 7.5, LL 23 with the vent settings of AC 32, TV 400, FiO2 100%, PEEP 8. NG tube with TF of Nepro @ 45mls/hr, with no gastric residual. RIJ Yair catheter for HD; LUCIO PICC line with ongoing Levophed 0.32 mcg/kg/min, NS @TKO. Rocha catheter and flexiseal intact. Will continue to monitor closely. Family members and relatives at bedside.
[2021-05-07] MEDS ORDERED: NOREPINEPHRINE BITARTRATE 4 MG/4 ML VIAL IV ONE (23:34)
[2021-05-07] MEDS: NOREPINEPHRINE BITARTRATE 32 MG in IV NORMAL SALINE 218 ML IV PRN (23:35)
[2021-05-07] MEDS: INSULIN REGULAR, HUMAN 300 UNIT/3 ML VIAL SQ PRN (23:45)
[2021-05-08] VITALS (89 sets, daily range): BP systolic 78–166; BP diastolic 36–92
[2021-05-08] MEDS ORDERED: PHENYLEPHRINE IV 100 MG in IV NORMAL SALINE 240 ML IV PRN (00:15)
--- NOTE | 2021-05-08 00:16 | NUR ---
PATIENT ON CON READ VENT WITH 7.5 ET/TUBE IN PLACE AND SECURED, ANCHOR FAST MOVE [id number], VENT SETTINGS, A/C 32, 4OOML, 100% , PEEP 8, MOSTLY WITH CONTROLLED VENTILATION, CHECK CUFF, NO VENT CHANGES MADE, SUCTION, BROWNISH TINGE AND PINKISH TINGE SECRETIONS, SUCTION MOUTH, AMBU BAG AT BEDSIDE, AL VENT ALARMS GOOD .Whitley SMALL RCP Addendum: 05/08/21 at 0019 by YESENIA SMALL RT Amended: Links added.
[2021-05-08 05:31] LABS: HEMATOCRIT 22.1 % (31.2-41.9); MEAN CORPUSCULAR HEMOGLOBIN 30.1 uug (24.7-32.8); MEAN CORPUSCULAR VOLUME 91.7 fL (75.5-95.3); PLATELET COUNT (AUTO) 131 K/uL (179-408)
[2021-05-08] MEDS: BLOOD SUGAR DIAGNOSTIC 1 EACH STRIP VI SCH ×4 (05:48→23:51)
[2021-05-08] MEDS: HYDROCORTISONE SOD SUCCINATE 100 MG/2 ML VIAL IV SCH ×3 (05:48→21:36)
[2021-05-08 06:11] LABS: CARBON DIOXIDE 29 mmol/L (21-32); CHLORIDE 96 mmol/L (98-107); CREATININE 1.4 mg/dL (0.6-1.3); GLUCOSE 100 mg/dL (74-106); MAGNESIUM 2.5 mg/dL (1.8-2.4); PHOSPHOROUS 3.4 mg/dL (2.5-4.9); POTASSIUM 3.7 mmol/L (3.5-5.1); UREA NITROGEN, BLOOD 62 mg/dL (7-18)
--- NOTE | 2021-05-08 06:50 | NUR ---
Seen and examined by Dr. Epstein, report given, with no orders.
[2021-05-08] MEDS: MEROPENEM 500 MG in IV NORMAL SALINE 50 ML IV SCH (07:49)
[2021-05-08] MEDS: CHOLECALCIFEROL 1,000 UNIT TABLET NG SCH (07:49)
[2021-05-08] MEDS: MIDODRINE HCL 5 MG TABLET PO SCH ×3 (07:49→17:11)
[2021-05-08] MEDS: ASCORBIC ACID 500 MG TABLET NG SCH (07:49)
[2021-05-08] MEDS: AMIODARONE HCL 200 MG TABLET NG SCH ×2 (07:50→21:28)
[2021-05-08] MEDS: PANTOPRAZOLE ORAL SUSPENSION 40 MG SUSPDR.PKT NG SCH (07:52)
[2021-05-08] MEDS: Z GUARD REMEDY PASTE 57 GM TUBE TOP SCH ×2 (07:53→21:27)
[2021-05-08] MEDS: HEPARIN SODIUM,PORCINE 5,000 UNITS/ML VIAL SQ SCH (07:54)
[2021-05-08] MEDS: PROTEIN SUPPLEMENT (PROSTAT) 30 ML LIQUID NG SCH ×3 (07:54→17:10)
[2021-05-08] MEDS: NUTRISOURCE FIBER 4 GM PACKET GT SCH ×2 (07:54→17:10)
[2021-05-08] MEDS: INSULIN GLARGINE,HUM 300 UNITS/3 ML CARTRIDGE SQ SCH ×2 (07:56→21:35)
[2021-05-08] MEDS ORDERED: HEPARIN SODIUM,PORCINE 5,000 UNITS/ML VIAL SQ SCH (09:00)
--- NOTE | 2021-05-08 17:55 | NUR ---
PT RECEIVED ORALLY INTUBATED ON CMV. NO VENT CHANGES MADE DURING SHIFT. ETT REPOSITIONED Q2. SUCTION PRN. WILL CONTINUE TO MONITOR.
--- NOTE | 2021-05-08 18:18 | NUR ---
patient family been coming in to visit through out the day. patient has been tapering down off levophed.
--- NOTE | 2021-05-08 19:00 | NUR ---
Received patient unresponsive with bilateral sluggish pupillary reaction. ET 7.5, LL 23 with the following vent settings of AC 32, TV 400, FiO2 100%, PEEP 8, O2 sat=95%. NSR on the monitor, HR=72bpm. NG tube TF Nepro 1.8@45mls/hr, with no gastric residual. LUCIO PICC line with ongoing Levophed 32mg @0.06mcg/kg/min, UB=661/54. Rocha catheter with no UO. Flexiseal intact. Will continue to monitor.
[2021-05-09] VITALS (51 sets, daily range): BP systolic 94–175; BP diastolic 40–71
--- NOTE | 2021-05-09 00:49 | NUR ---
PATIENT ON CONT READ VENT WITH 7,5 ET/TUBE IN PLACE AND SECURED, A/C 32, 400ML, PEEP8, 100%, SUCTIONED PINKISH TINGE SECRETIONS, ORAL CARE DONE, ALL VENT ALARMS GOOD, AMBU BAG AT BEDSIDE. Whitley SMALL RCP Addendum: 05/09/21 at 0050 by YESENIA SMALL RT Amended: Links added.
--- NOTE | 2021-05-09 00:56 | NUR ---
Tapering down off levophed, BP stable. Will continue to monitor closely.
--- NOTE | 2021-05-09 04:50 | NUR ---
AM care done. Linen changed. Patient noted to have minimal blood amount in the stool. Will notify project controls specialist doctor.
--- NOTE | 2021-05-09 05:00 | NUR ---
Started hemodialysis c/o Fabio SIEGEL. Will continue to monitor closely.
[2021-05-09] MEDS: BLOOD SUGAR DIAGNOSTIC 1 EACH STRIP VI SCH ×3 (05:02→17:01)
[2021-05-09] MEDS: HYDROCORTISONE SOD SUCCINATE 100 MG/2 ML VIAL IV SCH ×3 (05:02→21:30)
[2021-05-09 05:16] LABS: MEAN CORPUSCULAR HEMOGLOBIN 29.4 uug (24.7-32.8); MEAN CORPUSCULAR VOLUME 91.9 fL (75.5-95.3); PLATELET COUNT (AUTO) 133 K/uL (179-408)
[2021-05-09 05:58] LABS: ABG BASE EXCESS -5.5 mmol/L; ABG HCO3 22.7 mmol/L; ABG PCO2 61.8 mmHg (35.0-45.0); ABG PH 7.183 (7.350-7.450); ABG PO2 93.9 mmHg (75.0-100.0); ABG SITE LEFT RADIAL; ABG TOTAL HEMOGLOBIN 7.8 G/dL (12.0-16.0); COHb 0.9 % (0.5-1.5); MetHb 0.1 % (0.0-1.5); O2Hb 95.8 % (94.0-97.0); VENT MODE VENT - A/C; VT, ABG 400 mL
--- NOTE | 2021-05-09 06:00 | NUR ---
Lab called and spoke with Deon with regards to critical lab results. Relayed critical lab results to Michael Kendrick NP, and informed with regards to patient's condition, with new orders for transfusion of 1 "u" PRBC and 1 "u" FFP now. Noted and carried out.
[2021-05-09 06:02] LABS: CARBON DIOXIDE 24 mmol/L (21-32); CHLORIDE 95 mmol/L (98-107); GLUCOSE 134 mg/dL (74-106); MAGNESIUM 2.4 mg/dL (1.8-2.4); POTASSIUM 3.6 mmol/L (3.5-5.1)
[2021-05-09 06:04] LABS: UREA NITROGEN, BLOOD 97 mg/dL (7-18)
[2021-05-09] MEDS: NOREPINEPHRINE BITARTRATE 32 MG in IV NORMAL SALINE 218 ML IV PRN (06:31)
--- NOTE | 2021-05-09 06:50 | NUR ---
Seen and examined by Dr. Epstein, report given, with no orders.
--- NOTE | 2021-05-09 06:57 | NUR ---
Status quo. NG TF Glucerna 1.2@70mls/hr off [id number]. LUCIO PICC Levophed @0.01mcg/kg/min. Still ongoing hemodialysis. VSS. Endorsed to next shift for continuity of care.
--- NOTE | 2021-05-09 07:50 | NUR ---
Pulmonary services, Dr. Vidal in the unit to examine pt. report given see order hx.
--- NOTE | 2021-05-09 08:15 | NUR ---
MOTORCYCLE FABRICATOR ASSISTED WITH BLOOD TRANSFUSION AND FINISHED AT THIS TIME. NO COMPLICATIONS NOTED. PT TOLERATED IT WELL.
--- NOTE | 2021-05-09 08:46 | NUR ---
DIALYSIS SESSION FOR TODAY COMPLETED. 3L OF OUTPUT.
[2021-05-09] MEDS ORDERED: MIDODRINE HCL 5 MG TABLET PO SCH (09:00)
[2021-05-09] MEDS: MIDODRINE HCL 5 MG TABLET NG SCH ×3 (09:00→16:35)
[2021-05-09] MEDS: MEROPENEM 500 MG in IV NORMAL SALINE 50 ML IV SCH (09:11)
[2021-05-09] MEDS: AMIODARONE HCL 200 MG TABLET NG SCH ×2 (09:11→20:51)
[2021-05-09] MEDS: NUTRISOURCE FIBER 4 GM PACKET GT SCH ×2 (09:11→16:36)
[2021-05-09] MEDS: PROTEIN SUPPLEMENT (PROSTAT) 30 ML LIQUID NG SCH ×3 (09:12→16:49)
[2021-05-09] MEDS: PANTOPRAZOLE ORAL SUSPENSION 40 MG SUSPDR.PKT NG SCH (09:12)
[2021-05-09] MEDS: CHOLECALCIFEROL 1,000 UNIT TABLET NG SCH (09:13)
[2021-05-09] MEDS: ASCORBIC ACID 500 MG TABLET NG SCH (09:13)
[2021-05-09] MEDS: Z GUARD REMEDY PASTE 57 GM TUBE TOP SCH ×2 (09:13→20:51)
[2021-05-09] MEDS: INSULIN GLARGINE,HUM 300 UNITS/3 ML CARTRIDGE SQ SCH ×2 (09:19→22:47)
--- NOTE | 2021-05-09 09:32 | NUR ---
Cardiology services Dr. Cervantes in the unit to examine pt. report given. Orders to continue with care plan received.
[2021-05-09 13:31] LABS: HEMATOCRIT 23.3 % (31.2-41.9)
[2021-05-09] MEDS: MORPHINE SULFATE 2 MG/1 ML DISP.SYRIN IV PRN (16:34)
[2021-05-09 18:43] LABS: *OCCULT BLOOD STOOL POSITIVE (NEGATIVE)
--- NOTE | 2021-05-09 18:50 | NUR ---
GUNJAN SEO FLORAL DESIGN TEACHER NOTIFIED ABOUT PATIENT'S BP READINGS THROUGHOUT SHIFT. MORPHINE 2MG X 1 GIVEN FOR COMFORT.
--- NOTE | 2021-05-09 19:15 | NUR ---
general swelling , weeping , bruises on left abdomen , right ij , perma catheter intact
--- NOTE | 2021-05-09 19:15 | NUR ---
received patient non responsive , vent settings of ac 32 tv 400 p 8 fio2 100 % , ngt , nephro at 45 ml , placement checked , no rsidual noted , lopez and rectal tube intact
[2021-05-09] MEDS: hydrALAZINE HCL 20 MG/1 ML VIAL IV PRN (21:44)
[2021-05-09] MEDS: PANTOPRAZOLE SODIUM 40 MG VIAL IV SCH (22:47)
[2021-05-10] VITALS (25 sets, daily range): BP systolic 96–146; BP diastolic 49–82
[2021-05-10] MEDS: NEPRO 1000 ML GT PRN (02:44)
[2021-05-10] MEDS: BLOOD SUGAR DIAGNOSTIC 1 EACH STRIP VI SCH ×4 (03:14→18:42)
[2021-05-10] MEDS: INSULIN REGULAR, HUMAN 300 UNIT/3 ML VIAL SQ PRN ×3 (03:15→18:43)
[2021-05-10 05:11] LABS: HEMATOCRIT 23.3 % (31.2-41.9); MEAN CORPUSCULAR HEMOGLOBIN 30.2 uug (24.7-32.8); MEAN CORPUSCULAR VOLUME 89.7 fL (75.5-95.3); PLATELET COUNT (AUTO) 133 K/uL (179-408)
[2021-05-10] MEDS: HYDROCORTISONE SOD SUCCINATE 100 MG/2 ML VIAL IV SCH ×3 (05:24→22:17)
[2021-05-10 05:28] LABS: CARBON DIOXIDE 27 mmol/L (21-32); CHLORIDE 95 mmol/L (98-107); CREATININE 1.5 mg/dL (0.6-1.3); GLUCOSE 129 mg/dL (74-106); MAGNESIUM 2.1 mg/dL (1.8-2.4); POTASSIUM 3.7 mmol/L (3.5-5.1); UREA NITROGEN, BLOOD 70 mg/dL (7-18)
[2021-05-10 05:54] LABS: ABG BASE EXCESS -3.8 mmol/L; ABG HCO3 22.2 mmol/L; ABG PCO2 44.5 mmHg (35.0-45.0); ABG PH 7.316 (7.350-7.450); ABG PO2 41.5 mmHg (75.0-100.0); ABG SITE RIGHT BRACHIAL; ABG TOTAL HEMOGLOBIN 8.7 G/dL (12.0-16.0); COHb 0.5 % (0.5-1.5); MetHb 0.1 % (0.0-1.5); O2Hb 84.4 % (94.0-97.0); VENT MODE VENT - A/C; VT, ABG 400 mL
--- NOTE | 2021-05-10 06:00 | NUR ---
no responsive , same vent setting of ac 34 tv 400 p8 fio2 100 % , ngt tf held as per ordered x 22 hours , picc line and lopez and rectal tube intact , no fever, dr ayala is at bedside updates given
[2021-05-10] MEDS: AMIODARONE HCL 200 MG TABLET NG SCH ×2 (08:42→20:50)
[2021-05-10] MEDS: PANTOPRAZOLE SODIUM 40 MG VIAL IV SCH (08:42)
[2021-05-10] MEDS: ASCORBIC ACID 500 MG TABLET NG SCH (08:42)
[2021-05-10] MEDS: CHOLECALCIFEROL 1,000 UNIT TABLET NG SCH (08:42)
[2021-05-10] MEDS: MEROPENEM 500 MG in IV NORMAL SALINE 50 ML IV SCH (08:49)
[2021-05-10] MEDS: NUTRISOURCE FIBER 4 GM PACKET GT SCH ×2 (08:51→18:44)
[2021-05-10] MEDS: INSULIN GLARGINE,HUM 300 UNITS/3 ML CARTRIDGE SQ SCH ×2 (08:51→23:00)
[2021-05-10] MEDS: PROTEIN SUPPLEMENT (PROSTAT) 30 ML LIQUID NG SCH ×3 (08:52→18:44)
[2021-05-10] MEDS: Z GUARD REMEDY PASTE 57 GM TUBE TOP SCH ×2 (08:52→20:51)
--- NOTE | 2021-05-10 14:13 | NUR ---
Social work Consult Social work consult was called for end-of-life decision-making. Patient has COVID pneumonia and is on dialysis. Patient is DNR and has an NG tube and is unresponsive per nurses. She has a and daughter. Discussed the case with Morgan Jacome, who will review the case. End-of-life decision-making to be discussed with by physician. Assigned RN, Shiloh, reports that the daughter is not wanting to make any decisions but , next-of-kin, is realistic. Social work will intervene if, and when needed. Will await input from [facility].
--- NOTE | 2021-05-10 15:00 | NUR ---
Dr. Ingram in the unit to see patient and will call the daughter to discuss further care and prognosis.
[2021-05-10] MEDS: PANTOPRAZOLE ORAL SUSPENSION 40 MG SUSPDR.PKT GT SCH (18:44)
--- NOTE | 2021-05-10 19:10 | NUR ---
generalized swelling bilateral arms bruising with weeping
--- NOTE | 2021-05-10 19:10 | NUR ---
non responsive vent setting of ac 32 tv 400 p 8 fio2 100 % , nephro 45 ml , ngt , placement checked , no residual noted , rectal tube and picc line , rij perma cath and lopez intact , no fever, noted , lyle aguirre notified patient not stable to be taken down for cat scan , patient is already on 100 % fio2 % and easily desaturates when moved .
--- NOTE | 2021-05-10 20:00 | NUR ---
mitigation supervisor notified of dialysis order in am
[2021-05-11] VITALS (20 sets, daily range): BP systolic 81–111; BP diastolic 34–66
[2021-05-11] MEDS: BLOOD SUGAR DIAGNOSTIC 1 EACH STRIP VI SCH ×5 (00:12→23:36)
[2021-05-11] MEDS: INSULIN REGULAR, HUMAN 300 UNIT/3 ML VIAL SQ PRN ×3 (00:15→17:28)
[2021-05-11 05:16] LABS: HEMATOCRIT 23.3 % (31.2-41.9); MEAN CORPUSCULAR HEMOGLOBIN 29.7 uug (24.7-32.8); MEAN CORPUSCULAR VOLUME 90.9 fL (75.5-95.3); PLATELET COUNT (AUTO) 131 K/uL (179-408)
[2021-05-11] MEDS: HYDROCORTISONE SOD SUCCINATE 100 MG/2 ML VIAL IV SCH ×3 (05:20→21:18)
[2021-05-11] MEDS: ALBUMIN HUMAN 25% 50 ML IV PRN ×2 (05:21→05:46)
[2021-05-11 05:23] LABS: ABG BASE EXCESS -6.6 mmol/L; ABG HCO3 21.9 mmol/L; ABG PCO2 57.4 mmHg (35.0-45.0); ABG PH 7.199 (7.350-7.450); ABG PO2 105.4 mmHg (75.0-100.0); ABG SITE LEFT BRACHIAL; ABG TOTAL HEMOGLOBIN 11.8 G/dL (12.0-16.0); COHb 0.9 % (0.5-1.5); MetHb 0.2 % (0.0-1.5); O2Hb 96.6 % (94.0-97.0); VENT MODE VENT - A/C; VT, ABG 400 mL
[2021-05-11 05:34] LABS: CARBON DIOXIDE 26 mmol/L (21-32); CHLORIDE 95 mmol/L (98-107); CREATININE 1.8 mg/dL (0.6-1.3); GLUCOSE 91 mg/dL (74-106); MAGNESIUM 2.5 mg/dL (1.8-2.4); PHOSPHOROUS 5.9 mg/dL (2.5-4.9); POTASSIUM 3.1 mmol/L (3.5-5.1)
[2021-05-11 05:36] LABS: UREA NITROGEN, BLOOD 103 mg/dL (7-18)
--- NOTE | 2021-05-11 05:45 | NUR ---
dialysis nurse is here to start dialysis
[2021-05-11 05:58] LABS: BAND % (MANUAL) 7 % (0-10); LYMPHOCYTES % (MANUAL) 1 % (20-40); MONOCYTES % (MANUAL) 2 % (2-10); NEUTROPHILS % (MANUAL) 90 % (42-75)
--- NOTE | 2021-05-11 06:00 | NUR ---
vent setting of ac 32 tv 400 p8 100 fio2 % , tf off as ordered , flushed , placement checked , no residual noted , dialysis is ongoing , 2 albumin given , non responsive , flaccid movement all extremities , lopez and rectal tube intact , no leaking noted , generalized swelling with weeping
[2021-05-11] MEDS ORDERED: EPOETIN ALFA 10,000 UNITS/ML VIAL IVP SCH (07:15)
[2021-05-11] MEDS ORDERED: EPOETIN ALFA-EPBX 10,000 UNIT/ML VIAL IV ONE (07:45)
--- NOTE | 2021-05-11 07:45 | NUR ---
Pt.was seen by with new orders.
[2021-05-11] MEDS: PANTOPRAZOLE ORAL SUSPENSION 40 MG SUSPDR.PKT GT SCH ×2 (07:52→17:29)
[2021-05-11] MEDS: CHOLECALCIFEROL 1,000 UNIT TABLET NG SCH (07:53)
[2021-05-11] MEDS: ASCORBIC ACID 500 MG TABLET NG SCH (07:53)
[2021-05-11] MEDS: AMIODARONE HCL 200 MG TABLET NG SCH ×2 (07:53→21:17)
[2021-05-11] MEDS: PROTEIN SUPPLEMENT (PROSTAT) 30 ML LIQUID NG SCH ×3 (07:55→17:27)
[2021-05-11] MEDS: NUTRISOURCE FIBER 4 GM PACKET GT SCH ×2 (07:57→17:26)
[2021-05-11] MEDS: MEROPENEM 500 MG in IV NORMAL SALINE 50 ML IV SCH (07:57)
[2021-05-11] MEDS: INSULIN GLARGINE,HUM 300 UNITS/3 ML CARTRIDGE SQ SCH ×2 (07:58→20:40)
[2021-05-11] MEDS: Z GUARD REMEDY PASTE 57 GM TUBE TOP SCH ×2 (07:59→20:22)
--- NOTE | 2021-05-11 11:10 | NUR ---
VENT SETTING CHANGES MADE. PEEP TITRATED DOWN TO 7. SPO2 100%. WILL CONTINUE TO MONITOR
--- NOTE | 2021-05-11 13:49 | NUR ---
PEEP TITRATED DOWN TO 6. SPO2 100%
[2021-05-11] MEDS: NEPRO 1000 ML GT PRN (15:26)
--- NOTE | 2021-05-11 15:59 | NUR ---
PEEP TITRATED DOWN TO 5. SPO2 98%
--- NOTE | 2021-05-11 16:05 | NUR ---
Family at bedside,updated with pt.condition and plan of care.
--- NOTE | 2021-05-11 17:32 | NUR ---
FIO2 TITRATED DOWN TO 90%
--- NOTE | 2021-05-11 19:30 | NUR ---
Report received. Patient orally intubated and to mechanical ventilator with settings DK=325zx, RNN4=296%, PEEP=5 and AC=32. O2 sats 96-97%. No responses to pain, extremities flaccid. Turned and repositioned. With periods of desaturation during turning and care. NGT feedings Nephro tolerated at 45 ml/H; residuals 20ml. school bus monitor: SR rate 60's. Assessment completed. Addendum: 05/12/21 at 0149 by GENEVA HERNANDEZ RN Amended: Links added.
--- NOTE | 2021-05-11 22:00 | NUR ---
Turned and repositioned. Flexi seal irrigated gently; with liquid black stools. Addendum: 05/12/21 at 0150 by GENEVA HERNANDEZ RN Amended: Links added.
[2021-05-12] VITALS (38 sets, daily range): BP systolic 0–135; BP diastolic 0–76
--- NOTE | 2021-05-12 00:39 | NUR ---
PATIENT ON CONT READ VENT WITH 7.5 ET/TUBE, PT ON CURRENT VENT SETTINGS,A/C32, 400ML,PEEP, FIO2 @ 100%, MOSTLY WITH CONTROL VENTILATION, SUCTION LIGHT AN TINGE SECRETIONS, CHECK CUFF, NO VENT CHANGES MADE, ALL VENT ALARMS GOOD. Whitley KERRP Addendum: 05/12/21 at 0041 by YESENIA SMALL RT Amended: Links added.
--- NOTE | 2021-05-12 04:30 | NUR ---
After bath patient's BPs 60's systole. Levophed drip started. BPs monitored closely.
[2021-05-12] MEDS ORDERED: NOREPINEPHRINE BITARTRATE 4 MG/4 ML VIAL IV ONE (04:35)
[2021-05-12] MEDS: NOREPINEPHRINE BITARTRATE 32 MG in IV NORMAL SALINE 218 ML IV PRN (04:37)
[2021-05-12 05:05] LABS: HEMATOCRIT 24.5 % (31.2-41.9); MEAN CORPUSCULAR HEMOGLOBIN 29.2 uug (24.7-32.8); MEAN CORPUSCULAR VOLUME 92.5 fL (75.5-95.3); PLATELET COUNT (AUTO) 138 K/uL (179-408)
[2021-05-12 05:17] LABS: CARBON DIOXIDE 27 mmol/L (21-32); CHLORIDE 98 mmol/L (98-107); CREATININE 1.5 mg/dL (0.6-1.3); GLUCOSE 163 mg/dL (74-106); MAGNESIUM 2.4 mg/dL (1.8-2.4); PHOSPHOROUS 4.5 mg/dL (2.5-4.9); UREA NITROGEN, BLOOD 74 mg/dL (7-18)
[2021-05-12] MEDS: HYDROCORTISONE SOD SUCCINATE 100 MG/2 ML VIAL IV SCH (05:17)
[2021-05-12] MEDS: BLOOD SUGAR DIAGNOSTIC 1 EACH STRIP VI SCH (05:18)
--- NOTE | 2021-05-12 05:25 | NUR ---
Levophed drip titrated up; O2 sats in the low 80's. aJxon RT at bedside. PEEP increased to 8 cm. O2 saturations slowly improving.
[2021-05-12 05:31] LABS: POTASSIUM 2.8 mmol/L (3.5-5.1)
[2021-05-12 05:49] LABS: ABG BASE EXCESS -7.9 mmol/L; ABG HCO3 21.9 mmol/L; ABG PCO2 63.2 mmHg (35.0-45.0); ABG PH 7.157 (7.350-7.450); ABG PO2 53.3 mmHg (75.0-100.0); ABG SITE LEFT RADIAL; VENT MODE VENT - A/C; VT, ABG 400 mL
[2021-05-12] MEDS: INSULIN REGULAR, HUMAN 300 UNIT/3 ML VIAL SQ PRN (05:59)
--- NOTE | 2021-05-12 06:30 | NUR ---
Remains on Levophed drip at 0.2 mcg/kg/min to keep SBP above 90. Current vent settings: AC=32, SWO2=529%, RJ=189hn and PEEP=8 cm. O2 sats 95-96%. Addendum: 05/12/21 at 0700 by GENEVA HERNANDEZ RN Amended: Links added.
[2021-05-12] MEDS: PANTOPRAZOLE ORAL SUSPENSION 40 MG SUSPDR.PKT GT SCH (06:31)
--- NOTE | 2021-05-12 06:48 | NUR ---
Had a run of Vtach vs. PSVT. Unable to get BPs, but patient has palpable radial pulses. O2 sat remains above 90's. Patient is DNR. Will monitor closely. Call placed to patient's daughter Fe, message left; awaiting call back.
--- NOTE | 2021-05-12 06:55 | NUR ---
Call placed to [facility] re: patient's condition; awaiting call back from Stephenie Jiang. BPs remain labile. Levophed drip titrated.
--- NOTE | 2021-05-12 07:25 | NUR ---
Received report from police detective nurse, patient in bed unresponsive off sedation. On Lala vent a/c mode Rate 32 TV 400 Fio2 100% Peep 8. Patient is on levophed, sinus rhythm, Rocha is empty, flexiseal in place. Tube feeding off, NG tube present. Air mattress inflated. Bed in low position, side rails upx2.
[2021-05-12] MEDS: PROTEIN SUPPLEMENT (PROSTAT) 30 ML LIQUID NG SCH (08:05)
[2021-05-12] MEDS: AMIODARONE HCL 200 MG TABLET NG SCH (08:05)
[2021-05-12] MEDS: ASCORBIC ACID 500 MG TABLET NG SCH (08:05)
[2021-05-12] MEDS: NUTRISOURCE FIBER 4 GM PACKET GT SCH (08:05)
[2021-05-12] MEDS: Z GUARD REMEDY PASTE 57 GM TUBE TOP SCH (08:05)
[2021-05-12] MEDS: CHOLECALCIFEROL 1,000 UNIT TABLET NG SCH (08:05)
[2021-05-12] MEDS: INSULIN GLARGINE,HUM 300 UNITS/3 ML CARTRIDGE SQ SCH (08:07)
[2021-05-12] MEDS ORDERED: POTASSIUM CHLORIDE 20 MEQ POWDER PACKET NG ONE (09:30)
[2021-05-12] MEDS ORDERED: DC PROPOFOL ONCE EXTUBATED XX PRN (10:00)
[2021-05-12] MEDS ORDERED: MORPHINE SULFATE 2 MG/1 ML DISP.SYRIN IV ONE (11:00)
[2021-05-12] MEDS ORDERED: LORAZEPAM 2 MG/1 ML VIAL IV PRN (11:00)
[2021-05-12] MEDS ORDERED: MORPHINE SULFATE PF IV DRIP 100 MG in IV DEXTROSE 5% 96 ML IV PRN ×2 (11:00→11:30)
--- NOTE | 2021-05-12 11:15 | NUR ---
Patient seen by Morgan aguirre, discussion with family took place and agreement for extubation with comfort measures.
[2021-05-12] MEDS ORDERED: POTASSIUM CHLORIDE 20 MEQ POWDER PACKET NG SCH (11:30)
--- NOTE | 2021-05-12 11:43 | NUR ---
Family does not have a mortuary selected and needs assistance in finding one. community mental health social worker consult placed.
--- NOTE | 2021-05-12 11:45 | NUR ---
patient given morphine as ordered. Patient extubated and suctioned and placed on 2L nasal cannula. Family allowed to be at bedside for comfort.
--- NOTE | 2021-05-12 12:05 | NUR ---
Patient has fixed and dilated pupils, no reflexes present, no audible heart tones for 1 minute, asystole on the monitor, unable to obtain a blood pressure after multiple attempts. Patient has not had any respirations for 5 minutes and is apneic with no chest rise evident.
--- NOTE | 2021-05-12 12:12 | NUR ---
Contacted [employer] and body will not be sought after for organ donation. [id number] Mariah. Lamp Shade Maker Brynn released body as well Brynn [phone]. All physician, admitting, and compressor house operator notified of patient .
--- NOTE | 2021-05-12 12:20 | NUR ---
Patient clothing, slippers and plastic rosary returned to family. Informed Jonah that the Printing Agent will be in contact with her to discuss mortuary resource list.
--- NOTE | 2021-05-12 13:36 | NUR ---
Social work Consult Consult was requested for mortuary for family since they have no information on this. Provided the following mortuaries to Caridad garcia ([phone]); Christopher Silva ([phone]) [facility] ([phone]) [facility] ) Offered support to family and will follow up if needed.
--- NOTE | 2021-05-12 14:04 | NUR ---
Social Work Note Caridad Jane ) called and asvied this fiction writer that they ahve located a mortuary that will pick peanut picker later today. She will advise re ETA when she has it.
--- NOTE | 2021-05-12 14:19 | NUR ---
Patient taken [place] [facility] [place]
== END 2021-05-12 12:00 | DRG 870 ==
LOC: ER 23:07 → TRANSITION 04-05 07:09 → CCU 04-06 06:49
PROVIDERS: ADMIT Internal Medicine; ATTEND Hospitalist
PROC: XW033E5 Introduction of Remdesivir Anti-infective into Peripheral Vein, Percutaneous Approach, New Technology Group 5 (ICD-10-PCS; 2021-04-05)
PROC: XW033H5 Introduction of Tocilizumab into Peripheral Vein, Percutaneous Approach, New Technology Group 5 (ICD-10-PCS; 2021-04-05)
PROC: 5A1955Z Respiratory Ventilation, Greater than 96 Consecutive Hours (ICD-10-PCS; principal; 2021-04-06)
PROC: 0BH17EZ Insertion of Endotracheal Airway into Trachea, Via Natural or Artificial Opening (ICD-10-PCS; 2021-04-06)
PROC: 06HM33Z Insertion of Infusion Device into Right Femoral Vein, Percutaneous Approach (ICD-10-PCS; 2021-04-06)
PROC: B54BZZA Ultrasonography of Right Lower Extremity Veins, Guidance (ICD-10-PCS; 2021-04-06)
PROC: 02HV33Z Insertion of Infusion Device into Superior Vena Cava, Percutaneous Approach (ICD-10-PCS; 2021-04-23)
PROC: B548ZZA Ultrasonography of Superior Vena Cava, Guidance (ICD-10-PCS; 2021-04-23)
PROC: 05HM33Z Insertion of Infusion Device into Right Internal Jugular Vein, Percutaneous Approach (ICD-10-PCS; 2021-04-28)
PROC: B543ZZA Ultrasonography of Right Jugular Veins, Guidance (ICD-10-PCS; 2021-04-28)
PROC: 5A1D70Z Performance of Urinary Filtration, Intermittent, Less than 6 Hours Per Day (ICD-10-PCS; 2021-04-28)
PROC: 30233N1 Transfusion of Nonautologous Red Blood Cells into Peripheral Vein, Percutaneous Approach (ICD-10-PCS; 2021-05-04)
PROC: 30233K1 Transfusion of Nonautologous Frozen Plasma into Peripheral Vein, Percutaneous Approach (ICD-10-PCS; 2021-05-09)
DX: A41.89 Other specified sepsis (principal); U07.1 COVID-19; J12.82 Pneumonia due to coronavirus disease 2019; J96.01 Acute respiratory failure with hypoxia; E43 Unspecified severe protein-calorie malnutrition; N17.0 Acute kidney failure with tubular necrosis; I50.31 Acute diastolic (congestive) heart failure; J96.02 Acute respiratory failure with hypercapnia; R65.21 Severe sepsis with septic shock; G92.8 Other toxic encephalopathy; J15.9 Unspecified bacterial pneumonia; E87.1 Hypo-osmolality and hyponatremia; K56.7 Ileus, unspecified; D68.69 Other thrombophilia; R18.8 Other ascites; E87.0 Hyperosmolality and hypernatremia; Z51.5 Encounter for palliative care; E78.5 Hyperlipidemia, unspecified; I48.0 Paroxysmal atrial fibrillation; Z66 Do not resuscitate; Z90.49 Acquired absence of other specified parts of digestive tract; E87.5 Hyperkalemia; E11.9 Type 2 diabetes mellitus without complications; I50.9 Heart failure, unspecified; Z90.5 Acquired absence of kidney; N18.9 Chronic kidney disease, unspecified; Z91.81 History of falling; R00.1 Bradycardia, unspecified; M85.80 Other specified disorders of bone density and structure, unspecified site; E11.65 Type 2 diabetes mellitus with hyperglycemia; T38.0X5A Adverse effect of glucocorticoids and synthetic analogues, initial encounter; Y92.230 Patient room in hospital as the place of occurrence of the external cause; J98.2 Interstitial emphysema; Y84.8 Other medical procedures as the cause of abnormal reaction of the patient, or of later complication, without mention of misadventure at the time of the procedure; R19.5 Other fecal abnormalities; D64.9 Anemia, unspecified; E83.39 Other disorders of phosphorus metabolism; E86.9 Volume depletion, unspecified; I12.9 Hypertensive chronic kidney disease with stage 1 through stage 4 chronic kidney disease, or unspecified chronic kidney disease
CPT/HCPCS: 36415; 36569; 36600; 70030-TC; 71045; 72110; 74018; 76700; 76770; 82533; 82803; 83605; 83615; 83690; 83735; 84100; 84300; 84443; 84478; 85018; 85025; 85610; 85730; 86140; 86480; 86606; 86704; 86706; 86803; 86850; 86900; 86901; 86920; 87040; 87070; 87077; 87086; 87340; 87350; 87400; 87806; 93005; 93307; 94002; 94003; A4663; A6209; C9113; G0378; J0282; J0360; J0692; J0696; J0885; J1100; J1200; J1644; J1650; J1720; J1815; J1940; J1956; J2060; J2185; J2250; J2270; J2370; J2920; J3010; J3262; J3370; J3490; J7030; J7040; J7050; J7060; J7070; J7120; P9016; P9047; P9059; Q0162; Q0163; U0003